=== PATIENT | female | born 1950 | race Caucasian/White ===

== ENCOUNTER 2022-06-22 09:33 | Outpatient (REF) | payer MEDICARE, OTHER, SELFPAY ==
[2022-06-22 10:52] LABS: MANUAL DIFF FLAG NO
[2022-06-22 11:16] LABS: Basophils Absolute Auto 0.1 X10*3/uL (0.0-0.2); Basophils Percent Auto 1.8 % (0-2); Eosinophils Absolute Auto 0.1 X10*3/uL (0.0-0.4); Eosinophils Percent Auto 1.5 % (0-4); Hematocrit 42.3 % (37.0-47.0); Hemoglobin 14.2 g/dl (12.0-16.0); Imm Gran Abs Auto 0.01 X10*3/uL (0.00-0.03); Imm Gran Pct Auto 0.2 % (0.0-0.4); Lymphocytes Absolute Auto 2.1 X10*3/uL (1.2-4.9); Mean Corpuscular HGB Conc 33.6 g/dl (31.0-35.0); Mean Corpuscular Hemoglobin 30.1 pg (27.0-33.0); Mean Corpuscular Volume 89.8 fL (80.0-98.0); Mean Platelet Volume 11.1 fL (9.4-12.3); Monocytes Absolute Auto 0.7 X10*3/uL (0.1-1.2); Monocytes Percent Auto 10.6 % (2-11); Neutrophils Absolute Auto 3.5 x10*3/uL (2.0-8.3); Neutrophils Percent Auto 53.9 % (45-73); Platelet Count 320 X10*3/uL (160-400); Red Blood Count 4.71 X10*6/uL (4.20-5.50); Red Cell Distribution Width 14.6 % (11.0-16.0); White Blood Count 6.5 X10*3/uL (4.8-10.8)
[2022-06-22 11:34] LABS: Alanine Aminotransferase 8 U/L (0-31); Albumin Level 4.2 g/dL (3.5-5.0); Alkaline Phosphatase 54 U/L (39-117); Anion Gap 17 (12-20); Aspartate Amino Transferase 15 U/L (5-31); Bilirubin Total 0.5 mg/dL (0.0-1.0); Blood Urea Nitrogen 16 mg/dL (9-16); Calcium 9.5 mg/dL (8.4-10.2); Carbon Dioxide 24 mmol/L (22-29); Chloride 101 mmol/L (96-108); Cholesterol 266 mg/dL; Estimated Glomerular Filt Rate > 60; Glucose Random 112 mg/dL (60-115); HDL Cholesterol 89 mg/dL; LDL Cholesterol Calculated 166 mg/dl; Potassium 4.8 mmol/L (3.3-5.1); Sodium 137 mmol/L (135-145); Total Protein 6.7 g/dL (6.5-8.0); Triglycerides 55 mg/dL
[2022-06-22 12:03] LABS: Folate 17.4 ng/mL (> or = 4.0); Free T4 (Free Thyroxine) 0.89 ng/dL (0.71-1.85); Thyroid Stimulating Hormone 1.33 uIU/mL (0.32-4.0); Vitamin B12 375 pg/mL (200-900); Vitamin D 25-OH Total 42.2 ng/mL (>30)
== END 2022-06-22 09:34 | disposition home or self-care (01) ==
LOC: HO.10HDL 09:33
PROVIDERS: Visit Provider Internal Medicine
DX: E78.00 Pure hypercholesterolemia, unspecified (principal); M85.80 Other specified disorders of bone density and structure, unspecified site; E55.9 Vitamin D deficiency, unspecified
CPT/HCPCS: 36415; 80053; 80061; 82306; 82607; 82746; 84439; 84443; 85025

== ENCOUNTER 2022-07-07 10:20 | Outpatient (REF) | payer MEDICARE, OTHER, SELFPAY ==
--- NOTE | ~2022-07-07 | MM_ITS ---
EXAMINATION: BONE DENSITOMETRY CLINICAL INDICATION: Age-related osteoporosis without current pathological fracture. COMPARISON: Baseline BD dated 02/27/2015. TECHNIQUE: Using a [employer] DXA System (software version: 13.1) manufactured by [employer], dual-energy x-ray absorptiometry was performed of the lumbar spine and left hip. The images are of good technical quality. Summary results are attached. FINDINGS: AP SPINE L1-L4: Current: BMD 1.089 g/cm2, Z-score 0.9, T-score -0.8, normal, 1.4% decrease from baseline (<5% change is not significant). Baseline: BMD 1.104 g/cm2. LEFT FEMUR, NECK: Current: BMD 0.732 g/cm2, Z-score -0.4, T-score -2.2, osteopenia. Baseline: BMD 0.937 g/cm2. LEFT FEMUR, TOTAL: Current: BMD 0.785 g/cm2, Z-score -0.2, T-score -1.8, osteopenia, 21.2% decrease from baseline (<5% change is not significant). Baseline: BMD 0.996 g/cm2. IDENTIFIED RISK FACTORS: Menopause. HISTORY OF FRACTURE: None listed. MEDICATIONS: Multivitamin and vitamin D. MM/XR DEXA axial skeleton IMPRESSION: 1. DIAGNOSIS: Osteopenia based on the lowest T-score value of -2.2 in the femoral neck applying World Health Organization criteria. 2. 10-YEAR FRACTURE RISK PREDICTION, FRAX: Major osteoporotic fracture (clinical spine, forearm, hip or shoulder) 13.9%. Hip fracture 3.4%. 3. Treatment Recommendations: NOF guidelines recommend consideration for treatment in postmenopausal women and men age 50 and older presenting with the following: -A hip or vertebral (clinical or morphometric) fracture. -T-score less than or equal to -2.5 at the femoral neck or spine after appropriate evaluation to exclude secondary causes. -Low bone mass at the hip or spine and a 10-year fracture probability by FRAX of greater than or equal to 3% for hip fracture or greater than or equal to 20% for major osteoporotic fracture based on the [place] adapted WHO algorithm. 4. Other Recommendations: All treatment decisions require clinical judgment and consideration of individual patient factors, including patient preferences, comorbidities, previous drug use, risk factors not captured in the FRAX model (e.g. frailty, falls, vitamin D deficiency, increased bone turnover, interval significant decline in bone density) and possible under or overestimation of fracture risk by FRAX. Additional medical evaluation for secondary cause of low bone mineral density may be appropriate. FUTURE SCAN RECOMMENDATION: People with diagnosed cases of osteoporosis or at high risk for fracture should have regular bone mineral density tests. For patients eligible for Medicare, routine testing is allowed once every 2 years. The testing frequency can be increased to one year for patients who have rapidly progressing disease, those who are receiving or discontinuing medical therapy to restore bone mass, or have additional risk factors.
== END 2022-07-07 10:21 | disposition home or self-care (01) ==
LOC: HO.MAMMO 10:20
PROVIDERS: PCP Internal Medicine; Visit Provider Internal Medicine
DX: Z13.820 Encounter for screening for osteoporosis (principal); M81.0 Age-related osteoporosis without current pathological fracture; M85.80 Other specified disorders of bone density and structure, unspecified site; Z78.0 Asymptomatic menopausal state
CPT/HCPCS: 77080

== ENCOUNTER 2023-01-18 10:06 | Day surgery (SDC) | payer MEDICARE, OTHER, SELFPAY ==
[2023-01-18 06:24] VITALS: BMI 23.8
--- NOTE | 2023-01-18 09:21 | HO.ANESPROP2 ---
HPI - Anesthesia Eval Consult details Narrative: screening colon PMFSH Active Problems Active Problems: All Active Problems (Updated 07/13/22 @ 14:27 by Thomas Tracey MD) Positive colorectal cancer screening using Cologuard test (Acute) Impaired fasting glucose (Acute) Colon cancer screening (Acute) Breast cancer screening by mammogram (Acute) Annual physical exam (Acute) Osteopenia (Acute) Annual physical exam (Acute) Hypercholesterolemia (Acute) Hypertension (Acute) Past Medical History Medical History Nasal fracture Vitamin B12 deficiency Vitamin D deficiency Hypercholesterolemia Hypertension Family History Family History Mother Dementia Father Suicide Brother No problems noted. Sister No problems noted. Son No problems noted. Family history of problems with anesthesia: No Surgical History History of Problems with Anesthesia: No Social History Social History Housing: House Alcohol intake: current Alcohol intake frequency: does not drink Patient Tobacco Use Status: Former Tobacco user Years Smoked: stopped 2000 e-Cigarette/Vaping Use: Never Used Second Hand Smoke Exposure: No Are you DNR?: No Advance Directives: No Advance Directives Information Provided: Yes Nutrition Risks: No Nutritional Risk Current occupational status: retired Cognitive needs: No Hearing needs: No Vision needs: No Meds Allergies Allergy/AdvReac Type Severity Reaction Status Date / Time No Known Allergies Allergy Verified 06/24/22 15:04 Home Medications Medication Instructions Recorded Confirmed Last Taken Type multivitamin (One-A-Day Essential 1 tab PO DAILY 09/18/20 06/24/22 Unknown History tablet) Exam Exam Date and Time: January 18, 2023 0921 Height,Weight and Vital Signs: Height 5 ft 5 in Weight 64.864 kg Airway Mallampati Class: II TM Dist: >3cm Heart: rrr Lungs: cta Assessment and Plan Assessment Anesthesia Assessment: Anesthesia Plan Discussed Final Anesthetic Review Family History of Problems with Anesthesia: No History of Problems with Anesthesia: No NPO: Yes ASA Class: II Final Preanesthetic Review: No Changes in Pt Med Stat, Meds/Allgs Chart Reviewed, Consent Obtained/Reviewed and Anes Risks/Benef Reviewed Patient Risk: Low Procedure Risk: Low Anesthetic Plan Anesthetic Plan: MAC: Disposition: Standard PACU
[2023-01-18 10:39] VITALS: BP 170/93; PULSE 78; RESP 17; TEMP 36.3; O2SAT 98
[2023-01-18] MEDS: Lactated Ringers 1,000 ML 50 ML IVCONT (11:11)
[2023-01-18 12:50] VITALS: BP 122/77; PULSE 62; RESP 16; TEMP 36.7; O2SAT 98
--- NOTE | 2023-01-18 12:54 | PM.OP ---
Brief Operative Note Date of Service: 01/18/23 Pre-op diagnosis: + Cologuard Post-op diagnosis: other (Scarring near ICV s/p biopsy, Diverticulosis) Procedure: Colonoscopy to the cecum with biopsy Surgeon: Aram Gonzalez Anesthesia: MAC Was an Label Printing Machinist used for this Procedure?: No Estimated blood loss (mL): 2.0 Pathology: other (A. Proximal ascending colon) Condition: stable Disposition: PACU
--- NOTE | 2023-01-18 13:09 | OP_ITS ---
DATE OF SERVICE: 01/18/2023 SURGEON: Aram Gonzalez MD INDICATIONS: The patient presents for evaluation of a positive Cologuard test. Full consent obtained from her for this, including risks of bleeding and perforation. PREOPERATIVE DIAGNOSIS: Positive Cologuard test. POSTOPERATIVE DIAGNOSIS: PROCEDURE PERFORMED: Colonoscopy to cecum with biopsy. ESTIMATED BLOOD LOSS: COMPLICATIONS: ANESTHESIA: Monitored anesthesia care. ASSISTANTS: SPECIMENS: POSTOPERATIVE DIAGNOSES: Positive Cologuard test, diverticulosis, internal hemorrhoids, some scarring in area of proximal ascending colon near the ileocecal valve and status post biopsy. DESCRIPTION OF PROCEDURE: The patient was placed in the left lateral decubitus position. The digital rectal exam revealed no abnormalities. The Olympus video pediatric colonoscope was entered into the rectum and advanced to the cecum. Advancement past the sigmoid was somewhat difficult due to diverticulosis. Once in the cecum, I did identify normal-appearing cecal pouch with appendiceal orifice. The ileocecal valve appeared normal. The cecal pouch appeared normal. The scope was then slowly withdrawn assessing all mucosal surfaces carefully. Preparation was excellent. At the opening of the cecum from the ascending colon, there was some relative narrowing of the lumen, but there was no sign of any mass nor ulceration. However, in one portion of the mucosa, which I felt was on the ileocecal valve, there was some scarring and some minimal friability. Again, there was no sign of any mass. I did obtain multiple biopsies from that area. I did not visualize any sign of polyps, colitis, nor angiodysplasia. There were several diverticulae noted in the ascending colon. There was a moderate amount of diverticulosis in the sigmoid colon. There was a fair amount of mucus throughout the colon, but the underlying mucosa all appeared normal. In the rectum, scope was retroflexed visualizing some internal hemorrhoids, but no other pathology. The rectal mucosa appeared normal. The scope was straightened and withdrawn from the patient. She tolerated the procedure well and was returned to the recovery area in stable condition. IMPRESSION: 1. Some scarring in region of the proximal ascending colon, near the ileocecal valve, status post biopsy. 2. Diverticulosis. 3. Internal hemorrhoids. PLAN: The results of the biopsies will be checked. Assuming there are no significant abnormal findings on the biopsies, then I do not think she will need further screening colonoscopies. She will otherwise see me on a p.r.n. basis. This has been discussed with her . MD COLBY Franklin/KARRIE / [phone] MTDFrederick
[2023-01-18 13:14] VITALS: BP 120/66; PULSE 60; RESP 18; TEMP 36.1; O2SAT 98
== END 2023-01-18 13:46 | disposition home or self-care (01) ==
PROVIDERS: PCP Internal Medicine; Visit Provider Internal Medicine
PROC: 0DJD8ZZ Inspection of Lower Intestinal Tract, Via Natural or Artificial Opening Endoscopic (ICD-10-PCS; CPT 45378; principal; 2023-01-18 11:20)
DX: R19.5 Other fecal abnormalities (principal); K52.9 Noninfective gastroenteritis and colitis, unspecified; K57.30 Diverticulosis of large intestine without perforation or abscess without bleeding; K64.8 Other hemorrhoids; K63.89 Other specified diseases of intestine; I10 Essential (primary) hypertension; E78.00 Pure hypercholesterolemia, unspecified; E53.8 Deficiency of other specified B group vitamins; E55.9 Vitamin D deficiency, unspecified; Z79.899 Other long term (current) drug therapy
CPT/HCPCS: 45380; 88305; J2250

== ENCOUNTER 2023-04-08 13:38 | Emergency (ER) | payer MEDICARE, OTHER, SELFPAY ==
--- NOTE | ~2023-04-08 | CT_ITS ---
EXAMINATION: CT FACIAL BONES CLINICAL INFORMATION: Facial pain COMPARISON: None TECHNIQUE: Noncontrast CT facial bones Department standard protocol. DLP 202. This CT examination was performed using dose optimization techniques as appropriate, variously including the following: *Automated exposure control *Adjustment of mA and/or kV according to patient size (this includes techniques or standardized protocols for targeted exams where dose is matched to indication/reason for exam; i.e. extremities or head) *Use of iterative reconstruction technique FINDINGS : SKULL BASE: Included structures at skull base are normal. BONES: Subtle cortical irregularity in the nasal bone likely a small nondisplaced fracture. Skull base, orbital bones, , maxillary bones, mandibles, zygomatic arches, and included cervical vertebrae are normal. ORBITS: Globes are symmetric. Orbital structures are normal. SALIVARY GLANDS: Unremarkable SINUSES: Included sinuses at skull base are clear. CT/CT facial bones wo IV con IMPRESSION: Nondisplaced fracture of the nasal bone.
--- NOTE | ~2023-04-08 | XR_ITS ---
EXAMINATION: XR WRIST, RIGHT XR HAND, RIGHT CLINICAL INFORMATION: Post reduction COMPARISON: Earlier on same day TECHNIQUE: AP and lateral views of the right wrist and right hand FINDINGS: The intra-articular fracture about the distal right radius is improved in alignment from prior study with improvement in dorsal angulation of the distal fracture fragment. No dislocation is evident. There is associated soft tissue swelling seen. There is degenerative change with joint space narrowing seen involving the distal interphalangeal joints of the right hand as well as degenerative change of the first interphalangeal joint. There is some calcification of the triangular fibrocartilage adjacent to the ulnar styloid but I do not see a definite ulnar styloid fracture on these images. XR/XR hand wrist RT IMPRESSION: Improvement in alignment of distal right radial intra-articular fracture with near neutral angulation of the radiocarpal joint.
--- NOTE | ~2023-04-08 | CT_ITS ---
EXAMINATION: CT cervical spine without IV contrast. CLINICAL INDICATION: Fall, pain. COMPARISON: None. TECHNIQUE: 5 mm thin axial and reformatted 2 mm thin sagittal and coronal images of brain were obtained. Subsequently axial 3 mm thin and reformatted 2 mm thin sagittal and coronal images of cervical spine were obtained. Lastly axial 3 mm thin and reformatted 1.5 mm thin sagittal and coronal images of facial bones were obtained. DLP 1085. This CT examination was performed using dose optimization technique as appropriate, variously including the following: Automated exposure control Adjustment of MA and/or KV according to patient size(this includes techniques or standardized protocols for targeted exams where dose is matched to indication/reason for exam; extremities or head. Use of iterative reconstruction techniques. FINDINGS: Brain: There is no acute intra-axial, extra-axial bleed, masses or midline shift. There is no acute infarction evolution. There is no edema. Barillas to white matter differentiation is maintained. The lateral ventricles are symmetrical in size and configuration without enlargement. Bone windows reveal no calvarial abnormality. There is no scalp soft tissue abnormality. Bilateral paranasal sinuses and mastoid air cells are well-aerated. Cervical spine: There is mild reversal of cervical lordosis. Loss of C5-C6, C6-C7 and C7-T1 disc heights with mild ventral spondylosis. The craniovertebral junction and the C1-C2 alignment is normal. There is moderate right C2-C3 and C3-C4 facet joint arthropathy and hypertrophy. No aggressive lytic or sclerotic process seen. The prevertebral and paravertebral soft tissues are normal. The airway is widely patent. The lung apices are clear. Facial bones: There is normal aeration of bilateral paranasal sinuses and mastoid air cells. No mucoperiosteal thickening or air-fluid levels seen. The lamina papyracea and cribriform plate are normal. Paranasal bony aguirre are intact. There is mild deviation nasal septum to the right and a tiny bony spur. The turbinates are symmetrical and normal. Nasopharyngeal and nasal cavity airways widely patent. The bony orbits, optic globe and optic nerve are symmetrical and normal. The preseptal, post septal, and nasal and maxillofacial soft tissues are normal. There is a small nondisplaced right nasal bone fracture suspected.. Bilateral TM joints are symmetric and normal. No fracture seen involving the mandible. CT/CT cervical spine wo IV con IMPRESSION: No acute intracranial process seen. Reversal of cervical lordosis with degenerative disc changes in right facet joint arthropathy as described above. No visible acute fracture or dislocation seen. Small nondisplaced right nasal bone fracture suspected on axial image 37/21. Otherwise maxillofacial and mandible bones are unremarkable. No soft tissue swelling seen.
--- NOTE | ~2023-04-08 | XR_ITS ---
EXAMINATION: XR WRIST, RIGHT CLINICAL INFORMATION: Status post fall. Pain COMPARISON: None available. TECHNIQUE: PA, lateral, and oblique views of the right wrist. FINDINGS: There is transverse fracture through the right distal radius dorsal angulation and minimal displacement. Resultant dinner fork deformity. There is moderate soft tissue swelling. No additional fracture seen. Punctate calcification along the triangle fibrocartilage. XR/XR wrist RT min 3V IMPRESSION: Ovaries fracture distal radius with moderate soft tissue swelling.
--- NOTE | 2023-04-08 13:39 | ED.GENADULT ---
HPI - General Adult General Chief complaint: Fall Stated complaint: fall facial and r wrist inj Time Seen by Provider: 04/08/23 13:47 Source: patient and family Mode of arrival: ambulatory Limitations: no limitations History of Present Illness HPI narrative: Patient is a 73-year-old right hand dominant female with history of nasal fracture, HTN, hypercholesterolemia presenting to the emergency department with complaint of right wrist pain and facial pain after a trip and fall prior to arrival. Patient reports that she was outdoors on a walk with her when her shoe got caught on the edge of the sidewalk, causing her to trip and fall forward onto outstretched hands. She reports positive head strike, stating that she struck her face on the ground, denies loss of consciousness. Reports laceration to inside of lower lip, pain and swelling to nose, pain and swelling to right wrist. Denies numbness, tingling, or weakness to fingers. Denies any loose teeth or difficulty opening jaw. Denies headache or vision changes. Denies neck or back pain. complaint: facial and wrist pain Onset (ago): hour(s) Location: face and mouth Radiation: non-radiation Severity: severe Severity scale (1-10): 10 Quality: aching Pain Consistency: constant Relieving factors: rest Exacerbating factors: movement Associated symptoms: denies other symptoms Treatments prior to arrival: none Related Data Home Medications Medication Instructions Recorded Confirmed multivitamin (One-A-Day Essential 1 tab PO DAILY 09/18/20 06/24/22 tablet) Previous Rx's Medication Instructions Recorded atenolol 50 mg tablet 50 mg PO DAILY #90 tabs 02/01/23 lisinopril 10 mg tablet 10 mg PO DAILY #90 tabs 02/01/23 amoxicillin 875 mg-potassium 1 tab PO BID #14 tabs 04/08/23 clavulanate 125 mg tablet oxycodone 5 mg tablet 5 mg PO Q8H PRN pain #10 tabs 04/08/23 Allergies Allergy/AdvReac Type Severity Reaction Status Date / Time No Known Allergies Allergy Verified 06/24/22 15:04 Review of Systems Review of Systems: As per HPI. Yes all other systems are reviewed and are negative Constitutional: Constitutional: Reports as per HPI [facility] Past Medical History Medical History Nasal fracture Vitamin B12 deficiency Vitamin D deficiency Hypercholesterolemia Hypertension Family History Family History Mother Dementia Father Suicide Brother No problems noted. Sister No problems noted. Son No problems noted. Social History Social History Housing: House Alcohol intake: current Alcohol intake frequency: does not drink Patient Tobacco Use Status: Former Tobacco user Years Smoked: stopped 2000 e-Cigarette/Vaping Use: Never Used Second Hand Smoke Exposure: No Advance Directives: Yes Advance Directives Information Provided: No Advance Directives on File: No Current occupational status: retired Cognitive needs: No Hearing needs: No Vision needs: No Physical Exam ED Vital Signs: Vital Signs - 24 hr 04/08/23 13:40 04/08/23 14:30 Temperature 97.6 F 97.8 F Pulse Rate 102 H 92 Respiratory Rate 20 18 Blood Pressure 195/102 H 163/94 H Pulse Oximetry 96 94 Oxygen Delivery Method Room Air Room Air BMI result Body Mass Index 23.5 Vital signs have been reviewed and appear to be correct. Blood pressure elevated. Heart rate tachycardic initially, improved while in ED. Respiratory rate normal. Temperature normal. Oxygen saturation normal. Const General: cooperative, healthy appearing and no acute distress Orientation/consciousness: oriented to person, oriented to place, oriented to time and patient oriented x3 Limitations: no limitations HENMT Head: Yes No palpable skull fracture present, Yes normocephalic, No Taylor's sign and No periorbital ecchymosis Head images: 1. swelling, abrasions and ecchymosis to nasal bridge 2. ecchymosis to upper lip, 1cm Ears: external ears normal, TM's normal bilaterally and EAC's normal General nose exam: Normal septum present, Abnormal external nose present nasal abrasion, nasal tenderness and nasal swelling and Nasal discharge present bloody bilateral Face and sinus: Yes face symmetric Mouth: oropharynx normal, moist mucous membranes and lip abnormal lower laceration (stellate, with associated swelling) Teeth and gingiva: dentition normal Throat: Yes uvula midline and No uvular edema Eyes Pupils: Equal, round and reactive pupils present EOM: EOMs intact bilaterally Neck Neck: Yes normal visual inspection and Yes supple Chest Chest palpation & inspection: normal inspection of the chest and normal palpation of entire chest wall Resp Effort & Inspection: normal respiratory effort and able to speak in complete sentences Auscultation: clear to auscultation bilaterally Cardio Rate: regular rate Rhythm: regular rhythm Heart sounds: S1 normal heart sound present and S2 normal heart sound present GI Inspection: Yes normal to inspection Palpation (GI): Soft to palpation and nontender Auscultation: normoactive bowel sounds General: Yes no CVA tenderness Back/Spine/Pelvis Back: no CVA tenderness Cervical Spine: normal cervical lordosis, No Cervical spine tenderness and No step off deformity Thoracic/Lumbar Spine: thoracic and lumbar spine normal to inspection, No thoracic spinal tenderness and No lumbar spinal tenderness Pelvis: no pain with anterior-posterior compression and no pain with lateral compression Skin General skin exam: elasticity normal and turgor normal Neuro General: oriented to person, oriented to place, oriented to time, patient oriented x3, moves all extremities, no focal motor deficits and CN's II-XI intact bilaterally Cranial nerves: Yes Equal, round and reactive pupils present Cognition (Neuro): normal cognition Extrem General: Yes full ROM, Yes no pedal edema and Yes no calf tenderness Right upper extremity: wrist Details: tenderness Location: of the distal radius and of the dorsal wrist, abnormal ROM, deformity Details: dinner fork, normal vascular exam and radial pulse present Details: 2+ Psych Mental Status: mental status grossly normal Affect: normal affect Thought process: Normal thought process present Course Course Course Narrative: RME performed by Rima Macias PA-C. Patient is a 73 year old assigned female at presenting to the emergency department with right wrist and face pain after tripping and falling on the sidewalk. Imaging ordered. Patient placed back in the waiting room pending room availability and results. Medications Administered Discontinued Medications Generic Name Dose Route Start Last Admin Trade Name Freq PRN Reason Stop Dose Admin Bupivacaine HCl 5 ml 04/08/23 14:26 04/08/23 15:35 Bupivacaine 0.5 % 50 Ml Vial INFILTRATI 04/08/23 14:27 5 ml ONCE ONE Administration Bupivacaine HCl 5 ml 04/08/23 14:45 04/08/23 15:35 Bupivacaine Mpf 0.5 % 30 Ml Vial INFILTRATI 04/08/23 14:46 5 ml ONCE ONE Administration Diphtheria/Tetanus/Acell Pertussis 0.5 ml 04/08/23 15:37 04/08/23 15:49 Diphth,Pertus(Acell),Tet Adult 0.5 Ml Syringe IM 04/08/23 15:38 0.5 ml .ONCE ONE Administration Lidocaine HCl 5 ml 04/08/23 14:26 04/08/23 15:35 Lidocaine Hcl 1 % Mpf 5 Ml Vial SUBCUT 04/08/23 14:27 5 ml ONCE ONE Administration Oxycodone HCl 5 mg 04/08/23 14:31 04/08/23 14:37 Oxycodone Hcl Immed Release 5 Mg Tablet PO 04/08/23 14:32 5 mg ONCE ONE Administration Procedures Orthopedic Fracture Reduction Fracture #1: Time Out Performed: Yes Side: right Fracture Reduction Location: radius Analgesia: hematoma block Technique: direct manipulation and traction/counter-traction Post Reduction X-rays Demonstrate: acceptable reduction Post-reduction neuro exam: intact Post-reduction vascular exam: intact Splint Applied: Yes Patient Tolerated Procedure: well Orthopedic Splinting/Casting Injury #1: Side: right Upper Extremity Injury Location: wrist Upper Extremity Immobilizer: sling/shoulder immobilizer and sugar tong splint Medical Decision Making Medical Decision Making MDM Narrative: Patient is a 73-year-old right hand dominant female with history of nasal fracture, HTN, hypercholesterolemia presenting to the emergency department with complaint of right wrist pain and facial pain after a trip and fall prior to arrival. On exam patient is awake, A+Ox3, VS WNL, afebrile, normal neurological exam without focal deficits, physical exam findings as above. Given reported symptoms and physical exam findings, initial differential includes wrist fracture, nasal fracture, ICH, skull fracture, cervical vertebral fracture. X-ray wrist notable for distal radius fracture. CT head and neck unremarkable, nondisplaced nasal fracture noted on CT facial bones. My interpretation is in agreement with the radiologist's interpretation. Case discussed with Tereso from ortho who recommends reduction of wrist. Wrist reduced with EHSAN Abarca as per procedure note, patient tolerated well. Alignment improved on repeat imaging. Splint applied as per procedure note with +CMS distally prior to and after application of splint. Will refer to ortho as well as ENT. Patient advised not to blow her nose due to fracture. Will treat with Augmentin due to nasal abrasions. Advised patient to alternate Tylenol and ibuprofen, will prescribe oxycodone for severe pain. Also advised patient to keep arm elevated while at rest and apply ice intermittently. Return precautions discussed at length with patient and at bedside. Patient verbalized understanding of and agreement with plan. Differential Diagnosis Differential Diagnoses: The differential diagnosis associated with the presentation includes As per MDM Consult Healthcare Provider Management of the patient was discussed with: [employer] Factory Worker (renetta Rider) Independent Interpretation I performed an independent interpretation of an: CT Scan Interpretation: Distal radius fracture on xray Nondisplaced nasal fracture on CT No ICH, skull or cervical vertebral fractures Radiology Impression Radiologist Impression: CT/CT head/brain wo IV con IMPRESSION: No acute intracranial process seen. Reversal of cervical lordosis with degenerative disc changes in right facet joint arthropathy as described above. No visible acute fracture or dislocation seen. Small nondisplaced right nasal bone fracture suspected on axial image 37/21. Otherwise maxillofacial and mandible bones are unremarkable. No soft tissue swelling seen. XR/XR wrist RT min 3V IMPRESSION: Ovaries fracture distal radius with moderate soft tissue swelling. Independent Historian Clinical information obtained from an independent historian. History obtained from or confirmed by: Spouse External Record Review External record reviewed: Inpatient record, Office record and Outpatient record Prescription Management I considered prescription management with: Pain Medication and Antibiotic Discharge Plan Discharge Clinical Impression: Closed fracture of right distal radius, Fracture of nasal bone, Fall Patient Disposition: Home, Self-Care Instructions: Amoxicillin/Clavulanate Potassium (By mouth), Nasal Fracture (ED), Wrist Fracture in Adults (ED), R.I.C.E. Treatment (ED) Additional Instructions: You were evaluated in the emergency department today for injuries sustained after a fall. Your x-ray revealed a distal radius (wrist) fracture. Your CT also showed a nasal fracture. Your wrist was reduced in the emergency department today and a splint was applied. Please keep this splint in place until you follow-up with orthopedics. It is important that you do not get the splint wet. Please use the sling as needed for comfort. It is important that with your nasal fracture, you do not blow your nose. You are being referred to ENT for further evaluation and management of your nasal fracture. You are also being referred to Orthopedics for further evaluation and management of your wrist fracture. Please call both offices to schedule appointments. You are being prescribed Augmentin which is an antibiotic to prevent infection associated with your injuries. We recommend you take 600 mg ibuprofen every 6 hours or Tylenol 650 mg every 6 hours as needed for pain. If needed, you can alternate these medications so that you take 1 medication every 3 hours. For instance, at noon take ibuprofen, then at 3:00 p.m. take Tylenol, then at 6:00 p.m. take ibuprofen. You are being prescribed oxycodone for severe pain. You should not drink alcohol while taking this medication and you should not take this medication while home alone. You can also apply ice to your nose as well as over the splint for 10-15 minutes at a time. Do not apply ice directly to skin. Please schedule an appointment with for follow-up with your primary care provider as soon as possible as well. Return to the emergency department if you experience worsening or uncontrolled pain, numbness, tingling, change of color in your fingers, uncontrolled nose bleeds, vision changes, recurrent vomiting, difficulty with normal activities, abnormal behavior, difficulty walking, numbness, weakness, or any other concerning symptoms. Prescriptions: New amoxicillin-pot clavulanate 875-125 mg tablet 1 tab PO BID Qty: 14 0RF oxycodone 5 mg tablet 5 mg PO Q8H PRN (Reason: pain) Qty: 10 0RF Rx Instructions: Partial Fill upon patient request. No Action atenolol 50 mg tablet 50 mg PO DAILY Qty: 90 2RF lisinopril 10 mg tablet 10 mg PO DAILY Qty: 90 2RF multivitamin [One-A-Day Essential] Tablet 1 tab PO DAILY Referrals: [facility] [Provider Group] Jayesh Wasserman [Physician] -
[2023-04-08 13:40] VITALS: BP 195/102; PULSE 102; RESP 20; TEMP 36.4; O2SAT 96; BMI 23.5
[2023-04-08 14:30] VITALS: BP 163/94; PULSE 92; RESP 18; TEMP 36.6; O2SAT 94
[2023-04-08] MEDS: oxyCODONE HCl Immed Release 5 MG TABLET PO (14:37)
[2023-04-08] MEDS: Lidocaine HCl 1 % MPF 5 ML VIAL SUBCUT (15:35)
[2023-04-08] MEDS: Diphth,Pertus(ACell),Tet Adult 0.5 ML SYRINGE IM (15:49)
[2023-04-08 16:13] VITALS: BP 164/82; PULSE 90; RESP 18; TEMP 36.6; O2SAT 98
== END 2023-04-08 16:21 | disposition home or self-care (01) ==
PROVIDERS: Emergency Provider Student in an Organized Health Care Education/Training Program; PCP Internal Medicine
DX: S52.501A Unspecified fracture of the lower end of right radius, initial encounter for closed fracture (principal); S02.2XXA Fracture of nasal bones, initial encounter for closed fracture; I10 Essential (primary) hypertension; W01.0XXA Fall on same level from slipping, tripping and stumbling without subsequent striking against object, initial encounter; Y93.01 Activity, walking, marching and hiking; Y92.480 Sidewalk as the place of occurrence of the external cause; Y99.9 Unspecified external cause status; Z23 Encounter for immunization
CPT/HCPCS: 25605; 70450; 70486; 72125; 73110; 73130; 90471; 90715; 99284; J0665

== ENCOUNTER 2023-04-14 14:06 | Outpatient (AMB) | payer MEDICARE, OTHER, SELFPAY ==
--- NOTE | 2023-04-14 14:14 | MHC.OFFVIS ---
Intake Intake Visit Reasons: fc-fracture of right distal radius Intake Note: Josie is a 73 year old right hand dominant female who presents today for a fracture care appt. On Monday04/08/23 patient reports that she fell with out stretched arm on a sidewalk. Overall she is doing well, she has some increased pain at night but is able to move all her fingers with out any pain. Denies numbness and tingling. Allergies No Known Allergies Allergy (Verified 06/24/22 15:04) Medication List - Last Reconciled 04/14/23 by Tereso Farah PA-C amoxicillin-pot clavulanate 875-125 mg 1 tab PO BID atenolol 50 mg PO DAILY lisinopril 10 mg PO DAILY multivitamin (One-A-Day Essential tablet) 1 tab PO DAILY oxycodone 5 mg PO Q8H PRN HPI fc-fracture of right distal radius HPI Details 73-year-old right hand dominant female who presents to the office today for evaluation of right wrist injury s/p fall on outstretched arm on a sidewalk, 04/08/23. She states she has pain in her right wrist which is aggravated at night. She is able to move all her fingers without any pain. She denies any numbness or tingling. She is physically active and performs daily household activities. [facility], [facility] Medical History Nasal fracture Vitamin B12 deficiency Vitamin D deficiency Hypercholesterolemia Hypertension Family History Mother Dementia Father Suicide Brother No problems noted. Sister No problems noted. Son No problems noted. Social History Housing: House Alcohol intake: never Patient Tobacco Use Status: Former Tobacco user Years Smoked: stopped 2000 e-Cigarette/Vaping Use: Never Used Second Hand Smoke Exposure: No Current occupational status: retired Cognitive needs: No Hearing needs: No Vision needs: No Review of Systems Const All systems reviewed & are unremarkable except as noted in HPI and below Physical Exam Const General: cooperative and no acute distress Orientation/consciousness: patient oriented x3 Resp Effort & Inspection: normal respiratory effort and able to speak in complete sentences Cardio Peripheral pulses: Peripheral pulses 2+ throughout Neuro General: patient oriented x3 Extrem Other: Right wrist: Skin intact. There is significant swelling and bruising over the distal radius with tenderness over the fracture site. There is no pain over the elbow, negative forearm squeeze test. She has full range of motion of the elbow. She can fully extend all digits and make a closed fist. Pulses are present and she is neurovascularly intact. Office Procedures Casting/Splints 08164-[id number] Splint Application Procedure code (CPT) selection complete Fracture Care Fracture Billing Code: Fracture Billing Code Results Reviewed Results Reviewed: xrays of the right wrist obtained on 04/09/23 show intraarticular distal radius fracture Assessment & Plan Assessment & Plan (1) Closed fracture of right distal radius: Code(s): S52.501A - Unspecified fracture of the lower end of right radius, initial encounter for closed fracture Qualifiers: Encounter type: initial encounter Fracture morphology: other fracture Qualified Code(s): S52.591A - Other fractures of lower end of right radius, initial encounter for closed fracture Plan I discussed the extent of the injury to the patient and options available. Given the extent of the fracture pattern and high risk of further displacement, it is recommended that we surgically fix this to help with stability and restoring anatomy. I explained to the patient the procedure in detail along with the risks, benefits and alternatives. Risks including but not limited to infection, wound breakdown, stiffness, ongoing pain, nonunion or malunion, and possible complications with hardware. She does understand all this and would like to proceed with open reduction internal fixation of the right distal radius with Dr. Zamora. She will be booked accordingly. Patient Instructions: Scribed for Tereso Farah PA-C, by Pete Marroquin medical scientist, on 04/14/2023 at 2:30 PM EST. I, Tereso Farah PA-C, have personally reviewed and agree with the information entered by the scribe. Coding Level of Care Code New Pt Level 4 (98299) Diagnoses Other closed fracture of distal end of right radius, initial encounter S52.591A Encounter type: initial encounter Fracture morphology: other fracture CPT Codes Splint - CPT: 80737-[id number] Splint Application ([id number]) Fracture Care - Fracture Billing Code: Fracture Billing Code ([id number])
== END 2023-04-14 15:03 | disposition home or self-care (01) ==
PROVIDERS: PCP Internal Medicine; Visit Provider Physician Assistant
DX: S52.591A Other fractures of lower end of right radius, initial encounter for closed fracture (principal); W19.XXXA Unspecified fall, initial encounter
CPT/HCPCS: 25600; 99204

== ENCOUNTER → 2023-04-14 14:06 | Outpatient (BNVA) | payer MEDICARE, OTHER, SELFPAY | PROVIDERS: PCP Internal Medicine; Visit Provider Physician Assistant | DX: S52.591A Other fractures of lower end of right radius, initial encounter for closed fracture (principal) | CPT/HCPCS: 25600; 99202 ==

== ENCOUNTER 2023-04-20 10:47 | Day surgery (SDC) | payer MEDICARE, OTHER, SELFPAY ==
[2023-04-20] VITALS (7 sets, daily range): BP systolic 150–169; BP diastolic 62–83; PULSE 62–75; RESP 16–18; TEMP 36.1–36.7; O2SAT 93–99; BMI 22.8
--- NOTE | ~2023-04-20 | FL_ITS ---
EXAMINATION: XR FLUOROSCOPY WITH IMAGES CLINICAL INFORMATION: ORIF distal radius, right. COMPARISON: Previous x-ray 04/08/2023 TECHNIQUE: Fluoroscopy Supervised By: Dr. Kaitlynn Zamora. Fluoroscopy Time: 24.72 seconds. Cumulative Dose: 0.6753 mGy. DAP: 0.0408 Gycm2. Images: 5. FINDINGS: Images demonstrate plate and screw fixation of right distal radius with improved alignment FL/FL guidance in OR IMPRESSION: Fluoroscopic guidance for ORIF of right distal radius fracture.
--- NOTE | 2023-04-20 11:48 | HO.ANESPROP2 ---
HPI - Anesthesia Eval Consult details Narrative: closed fracture right distal radius for repair Anesthesia Pre-Procedure Meds If Yes to any meds - educate patient: Pt education - possibility of cancelled proc at provider's discretion PMFSH Active Problems Active Problems: All Active Problems (Updated 04/17/23 @ 22:34 by Tereso Farah PA-C) Closed fracture of right distal radius (Acute) Positive colorectal cancer screening using Cologuard test (Acute) Impaired fasting glucose (Acute) Colon cancer screening (Acute) Breast cancer screening by mammogram (Acute) Annual physical exam (Acute) Osteopenia (Acute) Annual physical exam (Acute) Hypercholesterolemia (Acute) Hypertension (Acute) Past Medical History Medical History Nasal fracture Vitamin B12 deficiency Vitamin D deficiency Hypercholesterolemia Hypertension Family History Family History Mother Dementia Father Suicide Brother No problems noted. Sister No problems noted. Son No problems noted. Family history of problems with anesthesia: No Surgical History History of Problems with Anesthesia: No Social History Social History Housing: House Alcohol intake: never Patient Tobacco Use Status: Former Tobacco user Years Smoked: stopped 2000 e-Cigarette/Vaping Use: Never Used Second Hand Smoke Exposure: No Are you DNR?: No Advance Directives: No Advance Directives Information Provided: Yes Nutrition Risks: No Nutritional Risk Current occupational status: retired Cognitive needs: No Hearing needs: No Vision needs: No Meds Allergies Allergy/AdvReac Type Severity Reaction Status Date / Time No Known Allergies Allergy Verified 04/20/23 11:24 Home Medications Medication Instructions Recorded Confirmed Last Taken Type multivitamin (One-A-Day Essential 1 tab PO DAILY 09/18/20 04/20/23 Unknown History tablet) Exam Airway Mallampati Class: II TM Dist: >3cm Neck ROM: Full Heart: rrr Lungs: cta Assessment and Plan Assessment Anesthesia Assessment: Anesthesia Plan Discussed and Chart Reviewed Final Anesthetic Review Family History of Problems with Anesthesia: No History of Problems with Anesthesia: No NPO: Yes ASA Class: II Final Preanesthetic Review: No Changes in Pt Med Stat, Meds/Allgs Chart Reviewed, Consent Obtained/Reviewed and Anes Risks/Benef Reviewed Patient Risk: Low Procedure Risk: Low Anesthetic Plan Anesthetic Plan: GA and Regional Block Disposition: Standard PACU
--- NOTE | 2023-04-20 11:54 | PC.NURSE ---
patient aware that new arrival time is 1300. Did not check voicemails to receive our message.
--- NOTE | 2023-04-20 13:49 | MHC.SHP ---
Pre-Procedural Eval Section A Date of Service: 04/20/23 The patient is an INPATIENT: No Changes since office visit: No Cold of Flu in the past 2 weeks, No New Medical Problems, No Changes in Medication and No Patient answered all questions The History & Physical has been completed within 30 days and I have reviewed it.: No Section B Chief Complaint: Unspecified fracture of the lower end of right Allergies: Allergies Allergy/AdvReac Type Severity Reaction Status Date / Time No Known Allergies Allergy Verified 04/20/23 11:24 Plan I have reviewed the history and physical and performed a pertinent physical examination on my patient. No changes have occurred unless specified. Time Spent With Patient Time: Total time managing care of this patient today ____ minutes.
--- NOTE | 2023-04-20 13:50 | W.PM.OPN ---
Operative Note Operative Note Date of Service: 04/20/23 Narrative: Operative Note Narrative: Preop diagnosis: 1. Right Distal radius fracture, comminuted intra-articular Postop diagnosis: Same Procedure: 1. Right Distal radius fracture open reduction internal fixation, two-part intra-articular Surgeon: Kaitlynn Zamora MD Anesthesia: General anesthesia plus regional block Findings: very distal intra-articular distal radius fracture about 2 weeks post injury. Implants: A 3 hole Accu Med volar locking plate, with 3x 2.3 mm locking pegs/screws, and 3 3.5 mm cortical screws Tourniquet time: Forty minutes EBL: 5.0 ml Specimen: None Drains: None Complications: None Disposition: Brought to the recovery room in stable condition Plan: Follow-up in 10-14 days for wound check, suture removal and postop radiographs The patient will be placed in either a short-arm cast or a volar wrist splint. Encouraged no lifting of anything heavier than a cell phone. Please encourage active and passive range of motion of the digits. Follow-up at 4-5 weeks postop for repeat radiographs. Indications: The patient is a 73 year old woman with a right distal radius fracture with displacement. The risks and benefits of operative treatment, including but not limited to risk of damage to blood vessels, nerves, tendons, infection, recurrence, persistent pain or numbness, incomplete resolution of preoperative symptoms, or need for further surgery were discussed with the patient and they wished to proceed with surgery. Procedure: Once consent was obtained patient was brought back to the operating suite and placed in the operating table in a supine position. A regional block was performed by the anesthesia team. Perioperative antibiotics and anesthesia was administered by the anesthesia team. A tourniquet was applied to the proximal aspect of the right upper extremity and the limb was prepped and draped in a standard surgical fashion. The limb was elevated exsanguinated with Esmarch bandage and the tourniquet inflated to 250 mm of mercury for a total tourniquet time of 40 minutes. The FluoroScan was used throughout the case to assess our reduction, and facilitate implant placement. A gentle closed reduction was 1st performed on the patient's right distal radius fracture. Was assessed radiographically before proceeding with the reduction internal fixation. I then made an 8 cm longitudinal incision over the distal aspect of the flexor carpi radialis tendon. The incision was made through the skin to the subcutaneous tissue using a 15. Blade. Then carefully dissected down to flexor carpi radialis tendon she tenotomy scissors. The FCR tendon sheath was then incised longitudinally using tenotomy scissors under direct visualization. The FCR tendon was then retracted ulnarly. I then made a longitudinal incision in the volar forearm fascia through the floor of FCR tendon sheath using tenotomy scissors under direct visualization. I identified the interval between the radial artery and the flexor tendons. This interval was developed further with my index finger, releasing some of the muscular fibers of the flexor pollicis longus. A dull weatlander retractor was then placed. I then created an ulnarly based flap of the pronator quadratus by releasing the radial and distal edges using a 15. Blade. A Juárez elevator was used to elevate the pronator quadratus from the volar surface of the distal radius. This then revealed to us our distal radius fracture. the fracture was seen to be very distal. There was intra-articular extension involving the radial styloid, and concern about intra-articular extension in the coronal plane. An open reduction was then performed on our distal radius fracture. I then placed a short narrow 3 hole Accu Med volar locking plate on the volar surface of the distal radius. I placed a single K-wire through the distal aspect of the plate and into the distal radius. This was assessed using fluoroscopic images. I was satisfied with the placement of our plate. I then placed 4x 2.3 mm locking screws/pegs in the distal aspect of the plate and distal radius by 1st drilling bicortically with a 1.8 mm drill bit, measuring with a depth gauge, and placing the appropriate length locking screws/pegs. The placement of our plate and screws was then assessed again using fluoroscopic images. The once satisfied with the placement of the volar locking plate and screws on the distal aspect of the distal radius, the plate was then reduced to the shaft of the radius. I then placed 3 3.5 mm cortical screws to the proximal aspect of the plate and into the shaft of the radius. This was done by 1st drilling bicortically with a 2.8 mm drill bit, measuring with a depth gauge, and placing the appropriate length screw. On looking at our post reduction and fixation radiographs, I was concerned that the radial styloid peg was very close to and might involve the articular surface. It was therefore removed. Final radiographs were then obtained. The DRUJ was assessed and found to be stable on exam. I was satisfied with our reduction and placement of all implants. At this point the wound was irrigated with normal saline. The pronator quadratus was reduced back over the volar locking plate using some 3-0 Vicryl suture material. The tourniquet was then deflated and hemostasis was obtained with a brief period of local pressure and bipolar monopolar electrocautery. The subcutaneous layer was then reapproximated using some 4-0 Vicryl suture, and the skin edges were reapproximated using some 5 0 Prolene suture. The wound was then infiltrated with some 0.5% Marcaine for postop pain control. A sterile dressing and a short dorsal splint allowing for active flexion and extension of the digits was applied. The patient appears to have tolerated the procedure well and with no complications. All digits were well vascularized conclusion of the case.
== END 2023-04-20 17:16 | disposition home or self-care (01) ==
PROVIDERS: PCP Internal Medicine; Visit Provider Orthopaedic Surgery
PROC: (CPT 25608; principal; 2023-04-20 12:20)
DX: S52.571A Other intraarticular fracture of lower end of right radius, initial encounter for closed fracture (principal); W01.0XXA Fall on same level from slipping, tripping and stumbling without subsequent striking against object, initial encounter; Y93.01 Activity, walking, marching and hiking; Y92.480 Sidewalk as the place of occurrence of the external cause; Y99.8 Other external cause status; I10 Essential (primary) hypertension; E78.00 Pure hypercholesterolemia, unspecified; E55.9 Vitamin D deficiency, unspecified; E53.8 Deficiency of other specified B group vitamins; Z79.899 Other long term (current) drug therapy; Z87.891 Personal history of nicotine dependence
CPT/HCPCS: 25608; C1713; C1769; J0665; J0690; J1100; J2250; J2405; J2704; J2795

== ENCOUNTER → 2023-04-20 10:47 | Outpatient (BNV) | payer MEDICARE, OTHER, SELFPAY | PROVIDERS: PCP Internal Medicine; Visit Provider Orthopaedic Surgery | DX: S52.571A Other intraarticular fracture of lower end of right radius, initial encounter for closed fracture (principal) | CPT/HCPCS: 25608 ==

== ENCOUNTER 2023-05-03 10:44 | Outpatient (REF) | payer MEDICARE, OTHER, SELFPAY ==
--- NOTE | ~2023-05-03 | XR_ITS ---
EXAMINATION: XR WRIST, RIGHT CLINICAL INFORMATION: Pain in right wrist COMPARISON: 04/08/2023 TECHNIQUE: PA, lateral, and oblique views of the right wrist. FINDINGS: There is a comminuted intra-articular fracture of the distal radius transfixed by a ventral plate and multiple screws. The fracture cleft is widened compared to 04/08/2023. There is no evidence of hardware complication. The most lateral fragment with intra-articular extension is not included within the fixation device. Small densities adjacent to the ulnar styloid are consistent with fracture versus related to calcification of the triangular fibrocartilage complex however the ulnar styloid is not identified. There is marked narrowing of the radiocarpal joint. XR/XR wrist RT min 3V IMPRESSION: Comminuted intra-articular fracture of the distal radius without evidence of hardware complication. The fracture cleft is widened compared to 04/08/2023.
== END 2023-05-03 10:45 | disposition home or self-care (01) ==
LOC: HO.HOSX 10:44
PROVIDERS: Visit Provider Orthopaedic Surgery
DX: S52.591D Other fractures of lower end of right radius, subsequent encounter for closed fracture with routine healing (principal)
CPT/HCPCS: 73110; 99212

== ENCOUNTER 2023-05-03 11:11 | Outpatient (AMB) | payer MEDICARE, OTHER, SELFPAY ==
--- NOTE | 2023-05-03 11:12 | A.OFFVIS_ITS ---
Intake Intake Visit Reasons: PO RT ORIF distal radius 04/20/23 AR Intake Note: Josie 73 yr old female presets today for her P/O visit for her right ORIF distal radius DOS 04/20/23 AR. Dressing removed and xrays updated in office. States her pain is minimal and is doing well over all. Allergies No Known Allergies Allergy (Verified 05/03/23 11:31) HPI PO RT ORIF distal radius 04/20/23 AR HPI Details Josie is a 73 year old right hand dominant woman who presents S/P right distal radius ORIF, DOS: 04/20/23. She says she is doing well and she has little pain, but she has not been moving her fingers and feels very stiff. [facility] Medical History (Updated 05/03/23 @ 11:43 by Kaitlynn Zamora MD) Nasal fracture Vitamin B12 deficiency Vitamin D deficiency Hypercholesterolemia Hypertension Surgical History Hx of wisdom tooth extraction Hx of colonoscopy Family History Mother Dementia Father Suicide Brother No problems noted. Sister No problems noted. Son No problems noted. Social History Housing: House Alcohol intake: never Patient Tobacco Use Status: Former Tobacco user Years Smoked: stopped 2000 e-Cigarette/Vaping Use: Never Used Second Hand Smoke Exposure: No Current occupational status: retired Cognitive needs: No Hearing needs: No Vision needs: No Review of Systems Const All systems reviewed & are unremarkable except as noted in HPI and below Physical Exam Const General: no acute distress and alert Orientation/consciousness: patient oriented x3 Neuro General: patient oriented x3 Extrem Other: The patient was alert oriented and in no acute distress The incision is healing well with no erythema drainage or evidence of infection. Sutures removed and Steri-Strips applied She has significant stiffness in her fingers and her thumb. It seems like she really has not been moving them and they are held in a slightly flexed position. We worked on exercises to bring her fingers to a fist and then to try to bring them into extension. Even before before she left clinic she was not quite able to get her hand flat on the table. She is going to work on these exercises at least 20 times per day. After we worked on her exercises she did feel little bit nauseous and lightheaded. This resolved with some cool air and lying down for a few minutes.. We worked on ROM exercises for more than 15 minutes Sensation is intact Cap refill is brisk Radiographs: 3 views of the right wrist were taken and viewed by me today in clinic. They show a right comminuted distal radius fracture with satisfactory fracture alignment and position of all implants. Psych Appearance: grossly normal Affect: normal affect Attitude: cooperative Assessment & Plan Assessment & Plan (1) Closed fracture of right distal radius: Code(s): S52.501A - Unspecified fracture of the lower end of right radius, initial encounter for closed fracture Qualifiers: Encounter type: initial encounter Fracture morphology: other fracture Qualified Code(s): S52.591A - Other fractures of lower end of right radius, initial encounter for closed fracture (2) Stiffness of hand joint: Code(s): M25.649 - Stiffness of unspecified hand, not elsewhere classified Plan Assessment & Plan: 1. Right distal radius fracture, S/P ORIF 2-parts intra-articular DOS: 04/20/23 The patient appears to be doing well post-operatively I educated her about the post-operative course I explained the signs and symptoms of infection, if the patient develops any new or worsening erythema, drainage, pain, or warmth they should contact the clinic or attend the ED. She was fitted for a velcro wrist splint, to be worn like a cast, except for showering, for the next 3 weeks I ordered OT hand therapy to work on finger ROM exercises, and she will perform at-home exercises 20x daily I discussed activity modifications, she is to lift nothing heavier than a cellphone for the next 4 weeks She should avoid any underwater activities at this time She will follow up in 2-3 weeks for a ROM check, with X-rays, 3V R wrist Scribed for Kaitlynn Zamora MD by Erlin Oliva, director of medical staff services, on 05/03/23 at 11:40 AM, EST. Orders: Orders OT Evaluation and Treatment Today M25.649 - Stiffness of unspecified hand, not elsewhere classified, S52.501A - Unspecified fracture of the lower end of right radius, initial encounter for closed fracture XR wrist RT min 3V Today M25.531 - Pain in right wrist Coding Level of Care Code Global (82644) Diagnoses Other closed fracture of distal end of right radius, initial encounter S52.591A Encounter type: initial encounter Fracture morphology: other fracture Stiffness of hand joint M25.649
== END 2023-05-03 11:54 | disposition home or self-care (01) ==
PROVIDERS: PCP Internal Medicine; Visit Provider Orthopaedic Surgery
DX: S52.591A Other fractures of lower end of right radius, initial encounter for closed fracture (principal); M25.649 Stiffness of unspecified hand, not elsewhere classified
CPT/HCPCS: 99024

== ENCOUNTER 2023-05-17 09:50 | Outpatient (REF) | payer MEDICARE, OTHER, SELFPAY ==
--- NOTE | ~2023-05-17 | XR_ITS ---
EXAMINATION: XR WRIST, RIGHT CLINICAL INFORMATION: Pain. COMPARISON: Prior radiographs, most recently 05/03/2023. TECHNIQUE: PA, lateral, and oblique views of the right wrist. FINDINGS: There is bony demineralization. A comminuted fracture with intra-articular extension is seen of the distal radial metaphysis, in stable alignment. An intact intact orthopedic plate and fixator screws are applied to the distal right radius, without hardware failure or loosening. There is a small avulsion fragment noted arising from the ulnar styloid. The proximal and distal carpal rows are intact. There is no focal soft tissue swelling, gas or foreign body. XR/XR wrist RT min 3V IMPRESSION: There is stable alignment of a comminuted intra-articular fracture of the distal right radius. No hardware failure or loosening is seen. A persistent fracture line is seen, and there is no significant new callus formation.
== END 2023-05-17 09:51 | disposition home or self-care (01) ==
LOC: HO.HOSX 09:50
PROVIDERS: Visit Provider Physician Assistant
DX: S52.591D Other fractures of lower end of right radius, subsequent encounter for closed fracture with routine healing (principal)
CPT/HCPCS: 73110; 99212

== ENCOUNTER 2023-05-17 12:31 | Outpatient (AMB) | payer MEDICARE, OTHER, SELFPAY ==
--- NOTE | 2023-05-17 12:37 | MHC.OFFVIS ---
Intake Intake Visit Reasons: PO RT ORIF distal radius 04/20/23 AR Intake Note: 73 year old right hand dominant female presents to the office today for a PO RT ORIF distal radius 04/20/23. Pt states she is doing much better than her last appt. Pt states she is able to lay her hand flat on a surface now and is still doing OT once a week and is doing the exercises each day that she was shown at OT. Pt denies any numbness,tingling, or swelling. Allergies No Known Allergies Allergy (Verified 05/17/23 12:38) HPI PO RT ORIF distal radius 04/20/23 AR HPI Details 73-year-old right hand dominant female who returns to the office today for post-op right wrist ORIF, 04/20/[address] Zamora. She states she has improvement in her pain since her last visit and denies any swelling, numbness, or tingling. She is working on occupational therapy as instructed. She is doing well overall and has no concerns today. REPLACED BY [facility] Medical History Nasal fracture Vitamin B12 deficiency Vitamin D deficiency Hypercholesterolemia Hypertension Surgical History Hx of wisdom tooth extraction Hx of colonoscopy Family History Mother Dementia Father Suicide Brother No problems noted. Sister No problems noted. Son No problems noted. Social History (Updated 05/17/23 @ 12:39 by Megan Calloway MA) Housing: House Alcohol intake: current Alcohol intake frequency: 0-2 drinks per day Alcohol type: wine Patient Tobacco Use Status: Former Tobacco user Years Smoked: stopped 2000 e-Cigarette/Vaping Use: Never Used Second Hand Smoke Exposure: No Current occupational status: retired Cognitive needs: No Hearing needs: No Vision needs: No Review of Systems Const All systems reviewed & are unremarkable except as noted in HPI and below Physical Exam Extrem Other: Right wrist: Normal to inspection. Surgical scar well healed. She can make a fist and fully extend all the digits. No tenderness over distal radius. NVI. Results Reviewed Results Reviewed: Xrays were obtained in the office today and personally reviewed by me of the right wrist show intact hardware with interval healing of the distal radius. Assessment & Plan Assessment & Plan (1) Closed fracture of right distal radius: Code(s): S52.501A - Unspecified fracture of the lower end of right radius, initial encounter for closed fracture Qualifiers: Encounter type: subsequent encounter Fracture morphology: other fracture Fracture healing: with routine healing Qualified Code(s): S52.591D - Other fractures of lower end of right radius, subsequent encounter for closed fracture with routine healing (2) Status post open reduction and internal fixation (ORIF) of fracture: Code(s): Z98.890 - Other specified postprocedural states; Z87.81 - Personal history of (healed) traumatic fracture Plan She will continue working with physical therapy and continue the use of Velcro wrist splint per Dr. Zamora? instructions to wear as a cast. She can remove the brace for therapy and hygiene only. She will avoid any type of lifting, pushing, pulling or carrying greater than a cellphone for the next 2 weeks, at that time if she is pain free can resume driving as she drives a manual vehicle. She will see us back in 4-[address] Zamora, sooner if needed. Orders: Orders XR wrist RT min 3V Today M25.531 - Pain in right wrist Patient Instructions: Scribed for Tereso Farah PA-C, by Pete Marroquin medical specialist, on 05/17/2023 at 12:30 PM ANTONI. Tereso Hutton PA-C, have personally reviewed and agree with the information entered by the scribe. Coding Level of Care Code Global (82163) Diagnoses Other closed fracture of distal end of right radius with routine healing, subsequent encounter S52.591D Encounter type: subsequent encounter Fracture morphology: other fracture Fracture healing: with routine healing Status post open reduction and internal fixation (ORIF) of fracture Z98.890; Z87.81
== END 2023-05-17 12:55 | disposition home or self-care (01) ==
PROVIDERS: PCP Internal Medicine; Visit Provider Physician Assistant
DX: S52.591D Other fractures of lower end of right radius, subsequent encounter for closed fracture with routine healing (principal); Z98.890 Other specified postprocedural states; Z87.81 Personal history of (healed) traumatic fracture
CPT/HCPCS: 99024

== ENCOUNTER 2023-05-25 14:30 | Outpatient (RCR) | payer MEDICARE, OTHER, SELFPAY ==
--- NOTE | 2023-05-15 16:06 | MHC.OT.EP ---
[address] [phone] Occupational Therapy Plan of Care Patient Name: Josie Moreno I Date of Evaluation: 05/15/23 Diagnosis: Right disal radius fracture Pain Location: Right distal wrist , proximal medial forearm Pain Score: 1 Pain Scale Used: Numeric (0 - 10) Aggravating Factors: Occasional discomfort Alleviating Factors: Avoids heavy use, Assessment: Pt is a 73 yo retired right dominant female 3 weeks 4 days s/p ORIF for a right DR fracture due to a FOOSH when she tripped stepping down from a curl Pt previously active and independent in all areas , currently reports light pain free use of her right hand while respecting po precautions of avoiding lifting . Pt has resolved hand stiffness with her HEP as instructed by Dr Zamora.. Today pt presents with decreased wrist ROM, low mortgage loan processing clerk strength and continued need of protecting surgical repair of her wrist. Pt will benefit from continued OT to progress her therapeutic exercises, progress functional use of her right dominant hand. Pt preferring to attend OT 1x a week at this time Frequency and Duration: The patient will be seen 1x wk x 5 wks Short Term Goals: Indep with HEP for ROM and isometric exercises Wrist extension to 55 deg Wrist flexion to 55 deg Wrist pronation to 70 deg It Architect to > 20 lb Director Of Consumer Affairs Goals: Wrist ext to > 60 deg Wrist flex to > 60 deg It Architect strength to > 40 lb Demonstrate indep with ROM and strengthening ex Full use of right dominant hand with daily activities. Treatment Plan: Therapeutic Exercise Therapeutic Activity Home Exercise Program Patient Education ADL Training Electronically Signed By: Anju Evans OT CHT CLT Please Sign and return to therapist. Thank you once again for your referral.
--- NOTE | 2023-06-07 08:52 | MHC.OT.DC ---
[address] [phone] F: [phone] Occupational Therapy Discharge Note Patient Name: Josie Moreno I Provider: Kaitlynn Zamora Diagnosis: Right disal radius fracture Date of Surgery: 04/20/23 Date of Evaluation: 05/15/23 Date of Discharge: Treatments to Date: 2 Cancellations to Date: 1 No Shows to Date: Discharge Status: Patient Elected to Stop Discharge Summary: Pt 5 wks s/p ORIF for a right DR fracture. Pt is independent with her HEP and demonstrates good awareness of protection technique. She reports increased ease with wrist extension after US treatment. Electronically Signed By: Anju Evans OT CHT CLT Reviewed/agree with student documentation: Therapist: Please Sign and return to therapist, thank you for your referral.
== END 2023-06-07 08:52 | disposition home or self-care (01) ==
LOC: HO.OT 14:30
PROVIDERS: PCP Internal Medicine; Visit Provider Orthopaedic Surgery
DX: S52.501D Unspecified fracture of the lower end of right radius, subsequent encounter for closed fracture with routine healing (principal); M25.641 Stiffness of right hand, not elsewhere classified; Z98.890 Other specified postprocedural states
CPT/HCPCS: 97035; 97110; 97165

== ENCOUNTER 2023-06-27 16:42 | Outpatient (REF) | payer OTHER, SELFPAY | END 2023-06-27 16:43 | disposition home or self-care (01) | LOC: HO.HOSX 16:42 | PROVIDERS: Visit Provider Orthopaedic Surgery | DX: Z13.89 Encounter for screening for other disorder (principal) ==

== ENCOUNTER 2023-06-28 14:18 | Outpatient (REF) | payer MEDICARE, OTHER, SELFPAY ==
--- NOTE | ~2023-06-28 | XR_ITS ---
EXAMINATION: XR WRIST, RIGHT CLINICAL INFORMATION: Pain in wrist. COMPARISON: May 17, 2023 TECHNIQUE: PA, lateral, and oblique views of the right wrist. FINDINGS: The bones are diffusely demineralized. Redemonstration of a comminuted fracture with intra-articular extension at the distal radial metaphysis. Fracture lines are still visible, but less distinct, suggesting some interval bridging callus. Redemonstration of orthopedic plate and fixator screws at the distal right radius. Hardware appears intact. Redemonstration of small avulsion fracture fragments distal ulna/styloid. Degenerative changes in the 1st carpometacarpal and metacarpophalangeal joints. XR/XR wrist RT min 3V IMPRESSION: 1. Redemonstration of a comminuted fracture with intra-articular extension at the distal radial metaphysis. Fracture lines are still visible, but less distinct, suggesting some interval bridging callus. 2. Redemonstration of small avulsion fracture fragments distal ulna/styloid.
== END 2023-06-28 14:19 | disposition home or self-care (01) ==
LOC: HO.HOSX 14:18
PROVIDERS: PCP Internal Medicine; Visit Provider Orthopaedic Surgery
DX: S52.591D Other fractures of lower end of right radius, subsequent encounter for closed fracture with routine healing (principal)
CPT/HCPCS: 73110; 99212

== ENCOUNTER 2023-06-28 14:18 | Outpatient (AMB) | payer MEDICARE, OTHER, SELFPAY ==
--- NOTE | 2023-06-28 14:19 | MHC.OFFVIS ---
Intake Intake Visit Reasons: PO-rt distal orif w AR with xrays Intake Note: Josie 73 year old right hand dominant female presents today for a PO visit for her RT ORIF distal radius 04/20/23.ROM check. Patient was last given a hand brace last visit. Currently state she is doing very well and had D/C using her brace. No concerns at the moment. Allergies No Known Allergies Allergy (Verified 06/28/23 14:35) HPI PO-rt distal orif w AR with xrays HPI Details Josie is a 73 year old right hand dominant woman who presents S/P right distal radius ORIF, DOS: 04/20/23. She says she is doing well, with no complaints of pain. She has discontinued her wrist brace and has been attending OT. She has been doing her exercises, and she is very pleased with the results of her surgery and the exercises to regain her range of motion. [facility] Medical History Nasal fracture Vitamin B12 deficiency Vitamin D deficiency Hypercholesterolemia Hypertension Surgical History Hx of wisdom tooth extraction Hx of colonoscopy Family History Mother Dementia Father Suicide Brother No problems noted. Sister No problems noted. Son No problems noted. Social History Housing: House Alcohol intake: current Alcohol intake frequency: 0-2 drinks per day Alcohol type: wine Patient Tobacco Use Status: Former Tobacco user Years Smoked: stopped 2000 e-Cigarette/Vaping Use: Never Used Second Hand Smoke Exposure: No Current occupational status: retired Cognitive needs: No Hearing needs: No Vision needs: No Review of Systems Const All systems reviewed & are unremarkable except as noted in HPI and below Physical Exam Const General: no acute distress and alert Orientation/consciousness: patient oriented x3 Neuro General: patient oriented x3 Extrem Other: Evaluation of Right Upper Extremity: The patient is alert, oriented, and in no acute distress Neuro: Median, Ulnar, Radial nerves motor and sensory intact and sensation is normal to the tips of all digits Vascular: Cap refill brisk ROM: She can make a fist and extend all her digits with good strength and no pain Full and symmetrical pronosupination Nearly full & symmetrical wrist flexion and extension All in all she has done an excellent job in regaining her hand and wrist range of motion following this injury. Radiographs: 3 views of the right wrist were taken and viewed by me today in clinic. They show a right comminuted distal radius fracture with satisfactory fracture alignment, good evidence of interval bony healing, and position of all implants. The fracture is still visible today on radiographs Psych Appearance: grossly normal Affect: normal affect Attitude: cooperative Assessment & Plan Assessment & Plan (1) Closed fracture of right distal radius: Code(s): S52.501A - Unspecified fracture of the lower end of right radius, initial encounter for closed fracture Qualifiers: Encounter type: subsequent encounter Fracture healing: with routine healing Fracture morphology: other fracture Qualified Code(s): S52.591D - Other fractures of lower end of right radius, subsequent encounter for closed fracture with routine healing (2) Stiffness of hand joint: Code(s): M25.649 - Stiffness of unspecified hand, not elsewhere classified Plan Assessment & Plan: 1. Right distal radius fracture, S/P ORIF 2-parts intra-articular DOS: 04/20/23 The patient appears to be doing well post-operatively She is hapy with the results of her surgery She should continue to perform ROM exercises at home She can engage in daily activities without restriction She can follow up prn Scribed for Kaitlynn Zamora MD by Erlin Oliva, medical lab technologist, on 06/28/23 at 2:55 PM, EST. Orders: Orders XR wrist RT min 3V Today M25.531 - Pain in right wrist Coding Level of Care Code Global (41553) Diagnoses Other closed fracture of distal end of right radius with routine healing, subsequent encounter S52.591D Encounter type: subsequent encounter Fracture healing: with routine healing Fracture morphology: other fracture Stiffness of hand joint M25.649
== END 2023-06-28 15:01 | disposition home or self-care (01) ==
PROVIDERS: PCP Internal Medicine; Visit Provider Orthopaedic Surgery
DX: S52.591D Other fractures of lower end of right radius, subsequent encounter for closed fracture with routine healing (principal); M25.649 Stiffness of unspecified hand, not elsewhere classified
CPT/HCPCS: 99024

== ENCOUNTER 2024-04-04 15:23 | Outpatient (AMB) | payer MEDICARE, OTHER, SELFPAY ==
--- NOTE | 2024-04-04 15:52 | A.OFFPC_ITS ---
Vital Signs 04/04/24 15:53 Height 5 ft 5 in Weight 148 lb 2 oz BMI 24.6 BP 180/90 H Blood Pressure Location Lt brachial Position Sitting Pulse 87 Pulse Source Pulse Oximeter Pulse Oximetry (%) 97 Oxygen Delivery Method Room Air Intake Visit Reasons: PE Field Representatives Director Required: No Accompanied by: Self / Same As Patient Allergies No Known Allergies Allergy (Verified 04/04/24 15:58) Medication List - Last Reconciled 04/04/24 by Thomas Tracey MD atenolol 50 mg PO DAILY lisinopril 10 mg PO DAILY multivitamin (One-A-Day Essential tablet) 1 tab PO DAILY Tobacco use date assessed: 04/04/24 HPI PE HPI Details The patient is a 74-year-old female presenting with follow-up for right wrist fracture, evaluation of essential hypertension, and discussion of bone health. The history begins with a Colles' fracture of the right wrist, sustained while walking outdoors in July. The patient tripped over a protruding segment of sidewalk, impacting her wrist with the force of her entire body weight. Following the fracture, surgical intervention was completed, and she has undergone physical therapy, resulting in improved mobility and reduced pain. Her current medication regimen includes atenolol and lisinopril for hypertension, which has not been well-controlled. The patient reports blood pressure readings gradually increasing over recent months, reaching approximately 150/90 mmHg. The patient denies any lifestyle changes contributing to hypertension, reporting consistent dietary habits and no increase in salty foods or prepared meals. There are no additional underlying chest pains or shortness of breath. Osteopenia was noted prior, and a history of inadequate vitamin D was reported, prompting the recommendation of a multivitamin supplement, which she takes daily with calcium and vitamin C. Other relevant past diagnoses include diverticulosis and hemorrhoids, identified during a previous colonoscopy. - Discussion of adequate vitamin D and c alcium supplementation for bone health - Blood pressure monitoring and medicati on adjustment discussed - Shingles vaccination status to be conf irmed, potential for update - Assessment of current vaccination stat us, including tetanus, flu, and COVID-19 booster - The patient denies any current tobacco or recreational drug use. - Reports consumption of one or two glas ses of red wine occasionally. - Engages in routine self-care and cooki ng at home. - Reports limitation in physical activit y due to recent wrist fracture but has resumed some exercises with caution. - Cardiovascular: Reports elevated blood pressure readings; denies chest pain or palpitations. - Musculoskeletal: Denies current pain i n the wrist; reports generalized right buttock and hip pain. - Gastrointestinal: Denies nausea, vomit ing, swallowing difficulties, or changes in bowel habits. - Renal/Urinary: Denies changes in urina ry habits. - Neurological: Denies dizziness or kai ting spells. - Labs: Fasting blood work ordered for c omprehensive assessment of renal function and electrolyte balance. [facility] Medical History (Updated 04/04/24 @ 16:21 by Thomas Tracey MD) Breast cancer screening by mammogram Colon cancer screening Positive colorectal cancer screening using Cologuard test Nasal fracture Vitamin B12 deficiency Vitamin D deficiency Hypercholesterolemia Hypertension Surgical History Hx of wisdom tooth extraction Hx of colonoscopy Family History Mother Dementia Father Suicide Brother No problems noted. Sister No problems noted. Son No problems noted. Social History (Updated 04/04/24 @ 16:13 by Thomas Tracey MD) Housing: House Alcohol intake: current Alcohol intake frequency: 0-2 drinks per day Alcohol type: wine Comment: 2-4 x amonth 1 -2 glasses of wine Patient Tobacco Use Status: Former Tobacco user Years Smoked: stopped 2000 e-Cigarette/Vaping Use: Never Used Second Hand Smoke Exposure: No Current occupational status: retired Cognitive needs: No Hearing needs: No Vision needs: No Questionnaire PHQ-9 Over the last 2 weeks, how often have you been bothered by any of the following problems? 1. Little interest or pleasure in doing things: not at all 2. Feeling down, depressed, or hopeless: not at all 3. Trouble falling or staying asleep, or sleeping too much: not at all 4. Feeling tired or having little energy: not at all 5. Poor appetite or overeating: not at all 6. Feeling bad about yourself - or that you are a failure or have let yourself or your family down: not at all 7. Trouble concentrating on things, such as reading the newspaper or watching television: not at all 8. Moving or speaking so slowly that other people could have noticed. Or the opposite - being so fidgety or restless that you have been moving around a lot more than usual: not at all 9. Thoughts that you would be better off or of hurting yourself in some way: not at all Total score: 0 Depression Screening Interpretation: Negative Depression Screening Done: Yes 12543 - PHQ-9 Billing: Yes Source: Developed by Drs. Aram Palacio, Nataliya Lu, Henri Montanez and colleagues, with an educational freddie from [employer]. Thrive Questionnaire Date Thrive assessed: 04/04/24 I am a: Patient What is your living situation today?: I have a steady place to live Within the past 12 months, did the food you bought not last and you didn't have the money to get more?: Never true Within the past 12 months, did you worry whether your food would run out before you got money to buy more?: Never true Do you have trouble paying for medicines?: No Do you have trouble getting transportation to medical appointments?: No Do you have trouble paying your heating and electricity bill?: No Do you have trouble taking care of your child, family member or friend?: No Do you have trouble with day-to-day activities such as bathing, preparing meals, shopping, managing finances, etc.?: No Are you currently unemployed and looking for a job?: No Are you interested in more education?: No Please select the resources that you would like help with: None Currently or been in a relationship where the following occur: No concerns reported THRIVE Score: 0 AUDIT C Alcohol Use Questionnaire (AUDIT-C) 1. How often do you have a drink containing alcohol?: 2-4 times a month 2. How many drinks containing alcohol do you have on a typical day when you are drinking?: 1 or 2 3. How often do you have six or more drinks on one occasion?: Never Total Score: 2 MONICA-7 AMB Questionnaire MONICA-7 Date MONICA - 7 assessed: 04/04/24 Feeling nervous, anxious, or on edge: 0 = Not at all Not being able to stop or control worryin = Not at all Worrying too much about different things: 0 = Not at all Trouble relaxin = Not at all Being so restless that it is hard to sit still: 0 = Not at all Becoming easily annoyed or irritable: 0 = Not at all Feeling afraid as if something awful might happen: 0 = Not at all Total MONICA-7 score (0-4 normal; 5-9 mild; 10-14 moderate; 15-21 severe): 0 Source: Developed by Drs. Aram Palacio, Nataliya Lu, Henri Montanez and colleagues, with an educational freddie from [employer]. MONICA-7 Assessment Billing MONICA-7 Assessment Tool: MONICA-7 Assessment 57837 Review of Systems Const Denies poor appetite and Denies weakness Eyes Denies no additional complaints ENT Reports Normal hearing present, Denies dizziness, Denies nasal congestion, Denies tinnitus and Denies sore throat Card Denies chest pain, Denies syncope, Denies rapid heart rate and Denies dyspnea Resp Denies cough and Denies dyspnea GI Denies change in stool character, Reports constipation, Denies diarrhea, Denies nausea and Denies vomiting Denies urinary frequency, Denies difficulty voiding and Denies dysuria Neuro Reports Normal hearing present, Denies confusion, Denies dizziness, Denies syncope and Denies weakness Psych Denies confusion Physical exam (Primary Care) Vital Signs: Last Vital Signs Pulse 87 04/04/24 15:53 BP 180/90 H 04/04/24 15:53 Pulse Ox 97 04/04/24 15:53 Oxygen Delivery Method Room Air 04/04/24 15:53 BMI result Body Mass Index 24.6 Tobacco/Smoking Status: Tobacco use Status Tobacco use date assessed 04/04/24 04/04/24 16:00 Patient Tobacco Use Status Former Tobacco user 04/04/24 16:13 e-Cigarette/Vaping Use Never Used 04/04/24 16:13 PHQ-9: PHQ-9 Score PHQ-9: Total score 0 04/04/24 16:04 Depression Screening Interpretation: Negative Thrive Assessment: Date of Thrive Assessment Date Thrive assessed 04/04/24 04/04/24 16:00 Currently or been in a relationship where the following occur: No concerns reported Const General: No confusion Orientation/consciousness: No confusion HENMT Head: Yes normocephalic Ears: external ears normal and TM's normal bilaterally Face and sinus: Yes normal facial exam Mouth: moist mucous membranes Throat: Yes tonsils normal Eyes Conjunctivae: conjunctivae normal Pupils: Equal, round and reactive pupils present and Pupil accommodation reflex normal Direct Ophthalmoscopy: normal light reflex Neck Neck: No lymphadenopathy Thyroid: Thyroid normal Chest Chest palpation & inspection: normal inspection of the chest Resp Effort & Inspection: normal respiratory effort and no audible wheezes Auscultation: clear to auscultation bilaterally, no crackles, no wheezes and lung sounds not diminished Cardio Rate: regular rate Rhythm: regular rhythm Peripheral pulses: radial pulses present and dorsalis pedis present GI Palpation (GI): no masses Auscultation: normal bowel sounds and normoactive bowel sounds Rectal Exam - Female: deferred Skin General skin exam: no rashes or lesions noted Rashes: no rashes Neuro General: No confusion Cranial nerves: Yes Equal, round and reactive pupils present and Yes Normal hearing present Cognition (Neuro): normal cognition Gait exam (Neuro): Normal gait present Motor exam (neuro): 5/5 motor strength present throughout Deep tendon reflexes (DTR's): Right brachioradialis reflex intensity grade: 2+, Left brachioradialis reflex intensity grade: 2+, Right patellar reflex intensity grade: 2+ and Left patellar reflex intensity grade: 2+ Extrem General: No edema Coding Level of Care Code Est Pt Prev Care >65y(26426) Diagnoses Annual physical exam Z00.00 Essential hypertension I10 Hypertension type: essential hypertension Hypercholesterolemia E78.00 Osteopenia of multiple sites M85.89 Osteopenia location: multiple sites Other closed fracture of distal end of right radius with routine healing, subsequent encounter S52.594Y Encounter type: subsequent encounter Fracture healing: with routine healing Fracture morphology: other fracture Impaired fasting glucose R73.01 Trochanteric bursitis of right hip M70.61 Additional Codes MONICA-7 Assessment Billing - MONICA-7 Assessment Tool: MONICA-7 Assessment 83702 ([id number]) PHQ-9 - 97287 - PHQ-9 Billing: Yes ([id number]) Assessment & Plan Assessment & Plan (1) Annual physical exam: Code(s): Z00.00 - Encounter for general adult medical examination without abnormal findings Category: Medical Plan: Patient is advised to eat healthy, keep well hydrated, keep active and have adequate sleep. (2) Hypertension: Code(s): I10 - Essential (primary) hypertension Category: Medical Qualifiers: Hypertension type: essential hypertension Qualified Code(s): I10 - Essential (primary) hypertension Plan: Continue with blood pressure medication. Decrease salt intake and exercise on atenolol 50 mg once a day lisinopril 10 mg once a day (3) Hypercholesterolemia: Code(s): E78.00 - Pure hypercholesterolemia, unspecified Category: Medical Plan: Avoid fried foods, chicken skin, eggs, butter margarine, pastries and meat. Be it pork or beef they have a lot of cholesterol LDL goal of less than 130 and triglyceride of less than 150 (4) Osteopenia: Comment: February Code(s): M85.80 - Other specified disorders of bone density and structure, unspecified site Category: Medical Qualifiers: Osteopenia location: multiple sites Qualified Code(s): M85.89 - Other specified disorders of bone density and structure, multiple sites Plan: Discussed about calcium and vitamin-D (5) Closed fracture of right distal radius: Comment: Status post ORIF April 2023 Code(s): S52.501A - Unspecified fracture of the lower end of right radius, initial encounter for closed fracture Category: Medical Qualifiers: Encounter type: subsequent encounter Fracture healing: with routine healing Fracture morphology: other fracture Qualified Code(s): S52.591D - Other fractures of lower end of right radius, subsequent encounter for closed fracture with routine healing Plan: Patient had ORIF done April 2023 (6) Impaired fasting glucose: Code(s): R73.01 - Impaired fasting glucose Category: Medical Plan: Decrease the amount of carbohydrate intake, pasta, bread, rice and potatoes are all sugar and that is aside from all the sweet stuff, remember that fruits are good but they are Sweet also. (7) Trochanteric bursitis of right hip: Code(s): M70.61 - Trochanteric bursitis, right hip Category: Medical Plan - Adjust lisinopril dosage to 20 mg for better blood pressure control. - Ensure adequate daily intake of vitamin D and calcium, assess current supplementation efficacy. - Encourage completion of scheduled physical exercises and recommend physical therapy referral for hip pain. - Proceed with ordered fasting blood work for evaluation of renal function. - Confirm vaccination status, specifically shingles, and administer if indicated. - Discuss potential initiation of alendronate therapy for bone health, pending dental evaluation. During the visit, I discussed with the patient the adjustment of her hypertension medication, increasing lisinopril to 20 mg given her persistently elevated readings. We reviewed the importance of maintaining adequate vitamin D and calcium levels to support bone health, especially after her recent wrist fracture. I advised a consultation with a dentist prior to starting alendronate therapy, due to potential side effects involving the jaw. For hip pain, likely due to a trochanteric bursitis, I recommended physical therapy, as well as monitored her response to treatment. I explained the importance of monitoring blood pressure and renal function through fasting blood work. I addressed her queries about RSV vaccination eligibility and clarified the age requirements for coverage. Return for follow-up was advised if symptoms worsened or new concerns arose. - Take lisinopril 20 mg as prescribed and monitor your blood pressure regularly. - Continue taking your multivitamin with additional vitamin D and calcium daily. - Engage in prescribed physical therapy exercises and seek referral for additional therapy for hip pain. - Complete the fasting blood work as ordered to monitor kidney and blood parameters. - Verify and update your vaccination for shingles, if applicable. - Schedule a routine dental check-up to evaluate suitability for osteoporosis treatment. - Report any new or worsening symptoms immediately, particularly regarding blood pressure, the wrist, or hip pain. - Maintain a balanced diet, keep hydrated, and continue your healthy lifestyle habits. Orders: Orders Free T4 (Free Thyroxine) Today E78.00 - Pure hypercholesterolemia, unspecified Vitamin D 25-OH Total Today E78.00 - Pure hypercholesterolemia, unspecified Complete Blood Count Auto Diff Today E78.00 - Pure hypercholesterolemia, unspecified Comprehensive Met. Panel Today E78.00 - Pure hypercholesterolemia, unspecified Hemoglobin A1c Today E78.00 - Pure hypercholesterolemia, unspecified Thyroid Stimulating Hormone Today E78.00 - Pure hypercholesterolemia, unspecified Lipid Panel Today E78.00 - Pure hypercholesterolemia, unspecified Vitamin B12 and Folate Today E78.00 - Pure hypercholesterolemia, unspecified PT Evaluation and Treatment Today M70.61 - Trochanteric bursitis, right hip Medications: Changed From lisinopril 10 mg PO DAILY 90 tabs 0RF I10 - Essential (primary) hypertension To lisinopril 20 mg PO DAILY 90 tabs 1RF I10 - Essential (primary) hypertension
[2024-04-04 15:53] VITALS: BP 180/90; PULSE 87; O2SAT 97; BMI 24.6
== END 2024-04-04 16:26 | disposition home or self-care (01) ==
PROVIDERS: PCP Internal Medicine; Visit Provider Internal Medicine
DX: Z00.00 Encounter for general adult medical examination without abnormal findings (principal); I10 Essential (primary) hypertension; E78.00 Pure hypercholesterolemia, unspecified; M85.89 Other specified disorders of bone density and structure, multiple sites; S52.591D Other fractures of lower end of right radius, subsequent encounter for closed fracture with routine healing; R73.01 Impaired fasting glucose; M70.61 Trochanteric bursitis, right hip

== ENCOUNTER → 2024-04-04 15:23 | Outpatient (BNVA) | payer MEDICARE, OTHER, SELFPAY | PROVIDERS: PCP Internal Medicine; Visit Provider Internal Medicine | DX: Z00.00 Encounter for general adult medical examination without abnormal findings (principal); I10 Essential (primary) hypertension; S52.531D Colles' fracture of right radius, subsequent encounter for closed fracture with routine healing; M85.80 Other specified disorders of bone density and structure, unspecified site; E78.00 Pure hypercholesterolemia, unspecified; M85.89 Other specified disorders of bone density and structure, multiple sites; R73.01 Impaired fasting glucose; M70.61 Trochanteric bursitis, right hip; W18.09XD Striking against other object with subsequent fall, subsequent encounter; Z87.891 Personal history of nicotine dependence; Z79.899 Other long term (current) drug therapy | CPT/HCPCS: 96127; 99397 ==

== ENCOUNTER 2024-05-14 13:52 | Outpatient (RCR) | payer MEDICARE, OTHER, SELFPAY ==
--- NOTE | 2024-04-30 15:08 | MHC.PT.EP ---
[facility] Office [place] Office [place] Office [address] [phone] F: [phone] F: [phone] F: [phone] F: [phone] Physical Therapy Plan of Care Date of Evaluation: 04/30/24 Date of Surgery: Diagnosis: R trochanteric bursitis Assessment: 74 y/o female referred to PT wt R greater trochanteric bursitis. S/s consistent with gluteal tendinopathy resulting in pain and difficulty with walking > 15 minutes, standing, and moving R leg into abduction. Examination shows normal lumbar ROM, decreased R hip ER/IR ROM, decreased hip strength, very flexible hamstring, impaired balance, and impaired gait pattern. Recommend 2x/week for 5 weeks to address impairments, implement HEP, and optimize functional mobility. Frequency and Duration: The patient will be seen 2x/week for 5 weeks Short Term Goals: 3 weeks I with HEP Pt will demonstrate 2x10 bridges without cramping Assisted Goals: 5 weeks i with HEP and self management of sx Pt will be able to ambulate > 30 minutes with pain < 3/10 Pt will be able to stand on R LE for 8 seconds Treatment Plan: Modalities to reduce pain, spasms and effusion. Manual therapy to restore motion and function. Therapeutic exercise to improve strength and flexibility. Neuromuscular re-education for posture and balance. Therapeutic activities to return to functional activities of daily living. Electronically signed by: Yael Romero PT Please sign and return to therapist. Thank you for your referral.
--- NOTE | 2024-06-14 07:11 | MHC.PT.DC ---
[facility] [place] [facility] [place] [facility] [place] [facility] [address] Nathanael Mckeon [address] [phone] F: [phone] F: [phone] F: [phone] F: [phone] Physical Therapy Discharge Report Diagnosis: R trochanteric bursitis Date of Surgery: Date of Evaluation: 04/30/24 Date of Discharge: 06/14/24 Treatments to Date: 3 Cancellations to Date: 2 No Shows to Date: 0 Discharge Status: Improved Function Independent with HEP Patient Elected to Stop Discharge Summary: Pt I with HEP and feels she can manage I and cancelled remaining appointments. D/c at this time Electronically signed by: Yael Romero PT Please sign and return to therapist. Thank you for your referral.
== END 2024-06-14 07:11 | disposition home or self-care (01) ==
LOC: HO.PT 13:52
PROVIDERS: PCP Internal Medicine; Visit Provider Internal Medicine
DX: M70.61 Trochanteric bursitis, right hip (principal)
CPT/HCPCS: 97110; 97112; 97161

== ENCOUNTER 2024-06-07 15:16 | Outpatient (AMB) | payer MEDICARE, OTHER, SELFPAY ==
--- OUTSIDE RECORDS SUMMARY | 2024-06-07 15:18 | XMS_ITS ---
Author Organization [facility] Address [address] [place] [address] Care Team Providers Care Automatic Developer Name Role Phone Thomas Tracey MD Primary Care Provider Aram Almendarez [phone] ALLERGIES No Known Allergies REASON FOR VISIT Patient presents today for FECAL ABNORMALITIES MEDICATIONS Medication SIG (Take, Route, Fr equency, Duration) Notes Start Date End Date Status Lisinopril 10 MG Oral for 90 A ctive Multivitamin - 1 tablet Orally Once a day for 30 day(s) Active Atenolol 50 MG Oral for 90 Act joao SOCIAL HISTORY Tobacco Use: Social History Observation Description Date Details (start date - stop date) Former Smoker NA - NA Sex Assigned At : Social History Observation Description Sex Assigned At Unknown Tobacco Use/Smoking Question Answer Notes Patient is a former smoker How long has it been since you last smoked? > 10 years Alcohol Screen Question Answer Notes Did you have a drink contain ing alcohol in the past year? Yes How often did you have a dri nk containing alcohol in the past year? 4 or more times a week (4 points) How many drinks did you have on a typical day when you were drinking in the past year? 1 or 2 drinks (0 point) How often did you have 6 or more drinks on one occasion in the past year? Never (0 point) Points 4 Interpretation Positive PROBLEMS Problem Type ICD Code Onset Dates Problem Status W/U Status Risk SNOMED Code Notes Problem Positive colorectal cancer screening using Cologuard test (R19.5) Active confirmed [id number] VITAL SIGNS BMI 23.79 kg/m2 12/06/2022 Blood pressure systolic 000 mm Hg 08/22/20 23 Blood pressure diastolic 00 mm Hg 023 Height 65 in 12/06/2022 Temperature 97.1 degrees Fahrenheit 12/07/19 23 Weight 143 lbs 12/06/2022 Encounters Encounter Location Date Provider Diagnosis [facility] [address] [place] [address] 12/06/2022 Aram Gonzalez Positive colorectal cancer screening using Cologuard test R19.5 ASSESSMENTS Encounter Date Diagnosis Assessment Notes Treatment Notes Treatment Clinical Notes 12/06/2022 Positive colorectal cancer screening using Cologuard test (ICD-10 - R19.5) PLAN OF TREATMENT Future Test Test Name Order Date COLONOSCOPY 12/06/2022 Next Appt Details Follow Up: prn, Reason: Progress Notes * Examination Category Sub-Category Detail Notes General Examination GENERAL APPEARANCE: pleasant , well nourished, well developed, in no acute distress HEAD: EYES: sclera non-icteric EARS: NOSE: THROAT: NECK/THYROID: no cervical lymphade nopathy, neck supple HEART: S1, S2 normal CHEST: LUNGS: clear to auscultatio n bilaterally ABDOMEN: normal bowel sounds, no guarding or rigidity, no guarding or rigidity, no masses palpable, soft, nontender, nondistended NEUROLOGIC: alert and oriented SKIN: nonjaundiced, no spi shannon angiomata EXTREMITIES: no edema PERIPHERAL PULSES: BACK: BREASTS: MUSCULOSKELETAL: MALE GENITOURINARY: LYMPH NODES: RECTAL EXAM: FEMALE GENITOURINARY: ORAL CAVITY: mucosa moist
--- OUTSIDE RECORDS SUMMARY | 2024-06-07 15:18 | XMS_ITS | Patient Health Record ---
Author Organization [facility] Address [address] [place] [address] Care Team Providers Care Senior Hardware Design Engineer Name Role Phone Thomas Tracey MD Primary Care Provider Aram Almendarez [phone] ALLERGIES No Known Allergies REASON FOR REFERRAL No Information MEDICATIONS Medication SIG (Take, Route, Fr equency, [...] screening using Cologuard test (R19.5) Active confirmed [id number] Problem Diverticulosis of large intestine without perforation or abscess without bleeding (K57.30) Active confirmed Diverticul ar disease of colon (644912536) PLAN OF TREATMENT Future Test Test Name Order Date COLONOSCOPY 12/06/2022 Insurance Providers Payer Name Payer Address Payer Phone Subscriber Number Group Number Insured Name Patient Relationship to Insured Coverage Start Date Coverage End Date MEDICARE OF [place] [address] [place]HUN [id number] LUCRETIA SPAIN Self - patient is the insured [facility] [address] [place]I Ribera [phone] [id number] LUCRETIA SPAIN Self - patient is the insured MEDICAL (GENERAL) HISTORY Medical History History ICD Code Hypertension Denies NH,DM,CVA,Lung disease,renal dise ase Surgical History Surgery Date(Month/Year)
--- OUTSIDE RECORDS SUMMARY | 2024-06-07 15:19 | XMS_ITS ---
Author Organization [facility] Address [address] [place] [address] Care Team Providers Care Refund Specialist Name Role Phone Thomas Tracey MD Primary Care Provider Aram Almendarez [phone] REASON FOR VISIT Address path with colitis Encounters Encounter Location Date Provider Diagnosis [facility] [address] [place] [address] 01/19/2023 Aram Gonzalez PLAN OF TREATMENT No Information
--- OUTSIDE RECORDS SUMMARY | 2024-06-07 15:19 | XMS_ITS ---
Author Organization [facility] Address [address] [place] [address] Care Team Providers Care Blueprint Engineer Name Role Phone Thomas Tracey MD Primary Care Provider Aram Almendarez [phone] REASON FOR VISIT positive colon ca screening using cologuard PROBLEMS Problem Type ICD Code Onset Dates Problem Status W/U Status Risk SNOMED Code Notes Problem Diverticulosis of large intestine without perforation or abscess without bleeding (K57.30) Active confirmed Diverticul ar disease of colon (359941646) Encounters Encounter Location Date Provider Diagnosis [facility] Outpatient [address] [place], [place] [id number] 01/18/2023 Aram Gonzalez Encounter for scre ening colonoscopy Z12.11 ; Heme positive stool R19.5 ; Other specified diseases of intestine K63.89 ; Diverticulosis of large intestine without perforation or abscess without bleeding K57.30 and Other hemorrhoids K64.8 ASSESSMENTS Encounter Date Diagnosis Assessment Notes Treatment Notes Treatment Clinical Notes 01/18/2023 Encounter for screening colonoscopy (ICD-10 - Z12.11) 01/18/2023 Heme positive stool (ICD-10 - R19.5) 01/18/2023 Other specified diseases of intestine (ICD-10 - K63.89) 01/18/2023 Diverticulosis of large intestine without perforation or abscess without bleeding (ICD-10 - K57.30) 01/18/2023 Other hemorrhoids (ICD-10 - K64.8) PLAN OF TREATMENT No Information
--- NOTE | 2024-06-07 15:20 | MHC.PC.OV ---
Vital Signs 06/07/24 15:24 Height 5 ft 5 in Weight 149 lb 8 oz BMI 24.9 BP 170/110 H Blood Pressure Location Lt brachial Position Sitting Pulse 81 Pulse Source Pulse Oximeter Temp 96.9 F Temp Source Temporal Artery Scan Pulse Oximetry (%) 97 Oxygen Delivery Method Room Air Intake Visit Reasons: preop right eye cataract 06/17 and 07/01 Intake Note: Patient is here for a Pre-op for Cataract scheduled with Dr Fontana on RT eye 06/17/24, left eye 07/01/24. Bridge Attacher Required: No Drilling Engineering Manager: Not Required per policy Accompanied by: Self / Same As Patient Allergies No Known Allergies Allergy (Verified 06/07/24 15:44) Medication List - Last Reconciled 06/07/24 by Sophy Bansal PA-C atenolol 50 mg PO DAILY lisinopril 20 mg PO DAILY multivitamin (One-A-Day Essential tablet) 1 tab PO DAILY Tobacco use date assessed: 06/07/24 Fall risk assessment: No Falls in past year Last assessed Fall Risk: 06/07/24 Dental Screening Dental Screen Date: 06/07/24 Did you have a dental visit in the last 12 months?: Yes Did you have a dental problem in the last 6 months where you did not have access to dental care?: No Was dental information given to patient?: Patient has dentist HPI preop right eye cataract 06/17 and 07/01 HPI Details 74-year-old female with past medical history hypertension, hypercholesterolemia, osteopenia, impaired glucose tolerance last seen 03/2024 coming in for preoperative visit. Patient is scheduled to have cataract surgery with Dr. Fontana 06/17/2024 and 07/01/2024. Patient has had surgery in the past without complication. No history of IL, CVA or CHF. Blood pressures at home have been mildly elevated while taking NSAIDs. Once she discontinue the NSAIDs blood pressure normalized but has been elevated more recently. hypertension: Blood pressure elevated today 178/88 increase lisinopril to 30 mg PFSH Medical History Breast cancer screening by mammogram Colon cancer screening Positive colorectal cancer screening using Cologuard test Nasal fracture Vitamin B12 deficiency Vitamin D deficiency Hypercholesterolemia Hypertension Surgical History History of surgery on right wrist Hx of wisdom tooth extraction Hx of colonoscopy Family History Mother Dementia Father Suicide Brother No problems noted. Sister No problems noted. Son No problems noted. Social History Housing: House Alcohol intake: current Alcohol intake frequency: 0-2 drinks per day Alcohol type: wine Comment: 2-4 x amonth 1 -2 glasses of wine Patient Tobacco Use Status: Former Tobacco user Years Smoked: stopped 2000 e-Cigarette/Vaping Use: Never Used Second Hand Smoke Exposure: Yes service: No Current occupational status: retired Cognitive needs: No Hearing needs: No Vision needs: No Questionnaire PHQ-9 Over the last 2 weeks, how often have you been bothered by any of the following problems? 1. Little interest or pleasure in doing things: not at all 2. Feeling down, depressed, or hopeless: not at all 3. Trouble falling or staying asleep, or sleeping too much: not at all 4. Feeling tired or having little energy: not at all 5. Poor appetite or overeating: not at all 6. Feeling bad about yourself - or that you are a failure or have let yourself or your family down: not at all 7. Trouble concentrating on things, such as reading the newspaper or watching television: not at all 8. Moving or speaking so slowly that other people could have noticed. Or the opposite - being so fidgety or restless that you have been moving around a lot more than usual: not at all 9. Thoughts that you would be better off or of hurting yourself in some way: not at all Total score: 0 Depression Screening Interpretation: Negative Depression Screening Done: Yes Source: Developed by Drs. Aram Palacio, Nataliya Lu, Henri Montanez and colleagues, with an educational freddie from [employer]. Thrive Questionnaire Date Thrive assessed: 06/07/24 I am a: Patient What is your living situation today?: I have a steady place to live Within the past 12 months, did the food you bought not last and you didn't have the money to get more?: Never true Within the past 12 months, did you worry whether your food would run out before you got money to buy more?: Never true Do you have trouble paying for medicines?: No Do you have trouble getting transportation to medical appointments?: No Do you have trouble paying your heating and electricity bill?: No Do you have trouble taking care of your child, family member or friend?: No Do you have trouble with day-to-day activities such as bathing, preparing meals, shopping, managing finances, etc.?: No Are you currently unemployed and looking for a job?: No Are you interested in more education?: No Please select the resources that you would like help with: None Currently or been in a relationship where the following occur: No concerns reported THRIVE Score: 0 AUDIT C Alcohol Use Questionnaire (AUDIT-C) 2. How many drinks containing alcohol do you have on a typical day when you are drinking?: 1 or 2 3. How often do you have six or more drinks on one occasion?: Never Total Score: 0 MONICA-7 AMB Questionnaire MONICA-7 Date MONICA - 7 assessed: 06/07/24 Feeling nervous, anxious, or on edge: 0 = Not at all Not being able to stop or control worryin = Not at all Worrying too much about different things: 0 = Not at all Trouble relaxin = Not at all Being so restless that it is hard to sit still: 0 = Not at all Becoming easily annoyed or irritable: 0 = Not at all Feeling afraid as if something awful might happen: 0 = Not at all Total MONICA-7 score (0-4 normal; 5-9 mild; 10-14 moderate; 15-21 severe): 0 Source: Developed by Drs. Aram Palacio, Nataliya Lu, Henri Montanez and colleagues, with an educational freddie from [employer]. Review of Systems Const Denies body aches, Denies chills, Denies fever(s), Denies headache(s) and Denies poor appetite Eyes Reports no additional complaints ENT Denies dysphagia, Denies dizziness, Denies headache(s) and Denies odynophagia Card Denies chest pain, Denies syncope, Denies edema, Denies irregular heart rhythm, Denies lightheadedness and Denies dyspnea Resp Denies cough and Denies dyspnea GI Denies abdominal pain, Denies constipation, Denies dysphagia, Denies diarrhea, Denies nausea, Denies odynophagia and Denies vomiting Reports no additional complaints Musc Reports no additional complaints and Denies abnormal gait Skin/Breast Reports system reviewed and no additional complaints, except as documented Neuro Denies abnormal gait, Denies dizziness, Denies syncope and Denies headache(s) Psych Reports no additional complaints Physical exam (Primary Care) Vital Signs: Last Vital Signs Temp 96.9 F 06/07/24 15:24 Oxygen Delivery Method Room Air 06/07/24 15:24 BMI result Body Mass Index 24.9 Tobacco/Smoking Status: Tobacco use Status Tobacco use date assessed 04/04/24 04/04/24 16:00 Patient Tobacco Use Status Former Tobacco user 04/04/24 16:13 e-Cigarette/Vaping Use Never Used 04/04/24 16:13 Depression Screening Interpretation: Negative Thrive Assessment: Date of Thrive Assessment Date Thrive assessed 06/07/24 06/07/24 15:17 Currently or been in a relationship where the following occur: No concerns reported Const General: cooperative, healthy appearing, comfortable and no acute distress Orientation/consciousness: patient oriented x3 HENMT Head: Yes normocephalic Ears: hearing grossly normal bilaterally General nose exam: Normal external nose present Eyes General: appearance normal, both eyes and all related structures Conjunctivae: conjunctivae normal Neck Neck: Yes full ROM and Yes no lymphadenopathy Resp Effort & Inspection: normal respiratory effort Auscultation: clear to auscultation bilaterally, no crackles, no rales, no rhonchi and no wheezes Cardio Rate: regular rate Rhythm: regular rhythm Skin General skin exam: no rashes or lesions noted Neuro General: patient oriented x3 Gait exam (Neuro): Normal gait present Extrem General: Yes normal to inspection, Yes full ROM and No edema Psych Affect: normal affect Attitude: cooperative Insight: Good insight present (Psych) Judgement: Good judgement present (Psych) Coding Level of Care Code Est Pt Level 4 (89156) Diagnoses Pre-op examination Z01.818 Assessment & Plan Assessment & Plan (1) Pre-op examination: Code(s): Z01.818 - Encounter for other preprocedural examination Category: Medical Plan: Regarding preop clearance, the patient is at low-moderate risk for proposed surgery due to age and history of hypertension. Reviewed with the patient that no surgery is completely free of risk and that this examination is to assist the surgeon in reviewing informed consent. Blood pressure elevated today in the office plan to increase lisinopril to 30 mg. I did discuss with patient if blood pressure is too elevated surgeon we will not perform surgery. Plan to increase lisinopril for optimal blood pressure control ultimately will be up to surgeon's discretion depending on blood pressure on the day of the surgery. Ordered for blood work for further evaluation addendum will be added to this note once blood work has been reviewed. Plan This note was constructed using voice recognition software. While every effort has been made to ensure accuracy and pile driving supervisor, still areas may have been included sometimes these areas may affect the content or meeting of the given symptoms. Total time spent caring for the patient today was 20 minutes. This includes time spent before the visit reviewing the chart, time spent during the visit, and time spent after the visit and documentation. Medications: New lisinopril 30 mg PO DAILY 90 tabs 0RF Discontinued lisinopril Discontinued Reason: Patient no longer taking 20 mg PO DAILY 90 tabs 1RF I10 - Essential (primary) hypertension
[2024-06-07 15:24] VITALS: BP 170/110; PULSE 81; TEMP 36.1; O2SAT 97; BMI 24.9
== END 2024-06-07 15:56 | disposition home or self-care (01) ==
PROVIDERS: PCP Internal Medicine
DX: Z01.818 Encounter for other preprocedural examination (principal)

== ENCOUNTER → 2024-06-07 15:16 | Outpatient (BNVA) | payer MEDICARE, OTHER, SELFPAY | PROVIDERS: PCP Internal Medicine | DX: Z01.818 Encounter for other preprocedural examination (principal) | CPT/HCPCS: 99212 ==

== ENCOUNTER 2024-06-11 10:42 | Outpatient (REF) | payer MEDICARE, OTHER, SELFPAY ==
[2024-06-11 12:56] LABS: MANUAL DIFF FLAG NO
[2024-06-11 13:01] LABS: Basophils Absolute Auto 0.1 X10*3/uL (0.0-0.2); Eosinophils Absolute Auto 0.2 X10*3/uL (0.0-0.4); Eosinophils Percent Auto 1.9 % (0-4); Hematocrit 42.1 % (37.0-47.0); Hemoglobin 14.3 g/dl (12.0-16.0); Imm Gran Abs Auto 0.03 X10*3/uL (0.00-0.03); Imm Gran Pct Auto 0.3 % (0.0-0.4); Lymphocytes Absolute Auto 1.6 X10*3/uL (1.2-4.9); Lymphocytes Percent Auto 13.9 % (20-40); Mean Corpuscular Hemoglobin 31.6 pg (27.0-33.0); Mean Corpuscular Volume 92.9 fL (80.0-98.0); Mean Platelet Volume 10.2 fL (9.4-12.3); Monocytes Absolute Auto 1.1 X10*3/uL (0.1-1.2); Monocytes Percent Auto 9.2 % (2-11); Neutrophils Absolute Auto 8.7 x10*3/uL (2.0-8.3); Neutrophils Percent Auto 73.7 % (45-73); Platelet Count 337 X10*3/uL (160-400); Red Blood Count 4.53 X10*6/uL (4.20-5.50); White Blood Count 11.8 X10*3/uL (4.8-10.8)
[2024-06-11 13:17] LABS: Alanine Aminotransferase 12 U/L (0-31); Albumin Level 4.4 g/dL (3.5-5.0); Alkaline Phosphatase 85 U/L (39-117); Anion Gap 14 (12-20); Aspartate Amino Transferase 20 U/L (5-31); Bilirubin Total 0.8 mg/dL (0.0-1.0); Blood Urea Nitrogen 18 mg/dL (9-16); Calcium 9.8 mg/dL (8.4-10.2); Carbon Dioxide 27 mmol/L (22-29); Chloride 100 mmol/L (96-108); Cholesterol 267 mg/dL (<200); Estimated Glomerular Filt Rate > 60; Glucose Random 121 mg/dL (60-115); HDL Cholesterol 94 mg/dL (>40); LDL Cholesterol Calculated 151 mg/dL (<100); Potassium 4.2 mmol/L (3.3-5.1); Sodium 137 mmol/L (135-145); Triglycerides 110 mg/dL (<150)
[2024-06-11 13:18] LABS: Estimated Average Glucose 103 mg/dL; Hemoglobin A1c % 5.2 % (<6.0)
[2024-06-11 13:33] LABS: Free T4 (Free Thyroxine) 1.02 ng/dL (0.71-1.85); Thyroid Stimulating Hormone 1.41 uIU/mL (0.32-4.0); Vitamin D 25-OH Total 71.8 ng/mL (>30)
[2024-06-11 13:44] LABS: Folate 15.5 ng/mL (> or = 4.0); Vitamin B12 515 pg/mL (200-900)
== END 2024-06-11 10:43 | disposition home or self-care (01) ==
LOC: HO.10HDL 10:42
PROVIDERS: Visit Provider Internal Medicine
DX: E78.00 Pure hypercholesterolemia, unspecified (principal); Z13.1 Encounter for screening for diabetes mellitus
CPT/HCPCS: 36415; 80053; 80061; 82306; 82607; 82746; 83036; 84439; 84443; 85025

== ENCOUNTER 2024-06-17 08:05 | Day surgery (SDC) | payer MEDICARE, OTHER, SELFPAY ==
[2024-06-13 07:08] VITALS: BMI 24.8
--- NOTE | 2024-06-13 15:23 | HO.ANESPROP2 ---
HPI - Anesthesia Eval Consult details Narrative: 74yo F for Right Cataract Extraction IOL Insertion No previous cataract on record PMFSH Active Problems Active Problems: All Active Problems Pre-op examination (Acute) Trochanteric bursitis of right hip (Acute) Status post open reduction and internal fixation (ORIF) of fracture (Acute) Stiffness of hand joint (Acute) Closed fracture of right distal radius (Acute) Impaired fasting glucose (Acute) Annual physical exam (Acute) Osteopenia (Acute) Annual physical exam (Acute) Hypercholesterolemia (Acute) Hypertension (Acute) Past Medical History Medical History Breast cancer screening by mammogram Colon cancer screening Positive colorectal cancer screening using Cologuard test Nasal fracture Vitamin B12 deficiency Vitamin D deficiency Hypercholesterolemia Hypertension Family History Family History Mother Dementia Father Suicide Brother No problems noted. Sister No problems noted. Son No problems noted. Family history of problems with anesthesia: No Surgical History Surgical History History of surgery on right wrist Hx of wisdom tooth extraction Hx of colonoscopy History of Problems with Anesthesia: No Social History Social History Housing: House Do you presently have visiting nurse or other home services: No Alcohol intake: current Alcohol intake frequency: a few times a month Alcohol type: wine Comment: 2-4 x amonth 1 -2 glasses of wine Patient Tobacco Use Status: Former Tobacco user Years Smoked: stopped 2000 e-Cigarette/Vaping Use: Never Used Second Hand Smoke Exposure: Yes Advance Directives: No Advance Directives Information Provided: No Advance Directives on File: No Recently lost weight without trying: No Eating poorly because of decreased appetite: No Nutrition Risks: No Nutritional Risk Patient : No : No service: No Current occupational status: retired Cognitive needs: No Hearing needs: No Vision needs: No Meds Allergies Allergy/AdvReac Type Severity Reaction Status Date / Time No Known Allergies Allergy Verified 06/07/24 15:44 Home Medications ?Medication ?Instructions ?Recorded ?Confirmed ?Last Taken ?Type multivitamin (One-A-Day Essential 1 tab PO DAILY 09/18/20 06/13/24 Unknown History tablet) Exam Height,Weight and Vital Signs: Height 5 ft 5 in Weight 67.585 kg Assessment and Plan Assessment Anesthesia Assessment: Chart Reviewed Final Anesthetic Review Family History of Problems with Anesthesia: No History of Problems with Anesthesia: No
[2024-06-17 08:59] VITALS: BMI 24.7
[2024-06-17] MEDS: Tetracaine HCl/PF 0.5% Oph Sol 4 ML DROPS 1 DROP EYE-RIGHT (08:59)
[2024-06-17] MEDS: Cyclopentolate 1 % Ophth Sol 2 ML DRPBTL 1 DROP EYE-RIGHT ×3 (09:00→09:16)
[2024-06-17] MEDS: Tropicamide 1 % Ophth Sol 3 ML BTL 1 DROP EYE-RIGHT ×3 (09:02→09:18)
[2024-06-17] MEDS: Ketorolac Tromethamine 0.5% Op 5 ML DROPS 1 DROP EYE-RIGHT ×3 (09:04→09:20)
[2024-06-17 09:05] VITALS: BP 173/76; PULSE 83; RESP 16; TEMP 36.7; O2SAT 97
[2024-06-17] MEDS: Phenylephrine HCL 2.5% Oph SoL 2 ML BOTTLE 1 DROP EYE-RIGHT ×3 (09:06→09:22)
[2024-06-17] MEDS: Lactated Ringers 500 ML 50 ML IV (09:17)
--- NOTE | 2024-06-17 10:02 | MHC.SHP ---
Pre-Procedural Eval Section A - 24 Hr Update-Section A only Date of Service: 06/17/24 The patient is an INPATIENT: No Changes since office visit: No Cold of Flu in the past 2 weeks, No New Medical Problems, No Changes in Medication and No Patient answered all questions The patient has been examined within 24 hours of the surgical procedure. The History & Physical has been completed within 30 days and I have reviewed it.: Yes Section B - Complete if H&P > 30 days Chief Complaint: Age-related nuclear cataract, right eye Allergies: Allergies Allergy/AdvReac Type Severity Reaction Status Date / Time No Known Allergies Allergy Verified 06/17/24 09:02 Plan Diagnosis/Plan: Unchanged I have reviewed the history and physical and performed a pertinent physical examination on my patient. No changes have occurred unless specified. Time Spent With Patient Time: Total time managing care of this patient today ____ minutes.
--- NOTE | 2024-06-17 10:03 | P.PCNO_ITS ---
Ophthalmology Procedure Procedure Date of Service: 06/17/24 Ophthalmology Viscoelastic: Healon Duet Dual Pack Pro Ophthalmology Lenses: IOL Acrysof MP - MA60AC (19.5) Procedure Notes: PREOPERATIVE DIAGNOSIS: Decreased visual acuity right eye secondary to cataract POSTOPERATIVE DIAGNOSIS: Same PROCEDURE: Right cataract extraction with intraocular lens insertion SURGEON: Carter Fontana M.D. ANESTHESIA: Topical/MAC ESTIMATED BLOOD LOSS: None COMPLICATIONS: None After obtaining informed consent, the patient was brought to the operating room suite and placed in the supine position. After adequate sedation per anesthesia, topical drops of Tetracaine were given to the right eye. The eye was then prepped and draped in the usual sterile fashion. The operating room microscope was then positioned over the operative eye and a lid speculum placed. A paracentesis was created. Viscoelastic was then instilled into the anterior chamber. A three plane incision was then created temporally, utilizing a 2.85 mm keratome. Capsulotomy forceps were then utilized to create a circular tear capsulotomy. Hydrodissection and hydrodelineation were carried out until adequate mobilization of the nucleus occurred. Phacoemulsification was then utilized to remove the dense central nu cleus followed by removal of the cortical material utilizing the automated aspiration irrigation unit. Viscoelastic was instilled into the posterior capsular bag followed by placement of a posterior chamber intraocular lens without difficulty. The residual Viscoelastic was then removed utilizing the automated IA machine. The wound was checked and found to be watertight. The patient tolerated the procedure well and the lid speculum was removed. Intracameral injection of Vigamox 0.1 mL followed by a subtenon injection of Kenalog-40 0.2 mL were administered. The patient will be seen in the a.m.
[2024-06-17 10:26] VITALS: BP 146/74; PULSE 77; RESP 16; TEMP 36.7; O2SAT 98
== END 2024-06-17 10:42 | disposition home or self-care (01) ==
PROVIDERS: PCP Internal Medicine; Visit Provider Ophthalmology
PROC: (CPT 66985; principal; 2024-06-17 10:00)
DX: H25.11 Age-related nuclear cataract, right eye (principal); H54.7 Unspecified visual loss; H40.013 Open angle with borderline findings, low risk, bilateral; H52.03 Hypermetropia, bilateral; H18.413 Arcus senilis, bilateral; I10 Essential (primary) hypertension; E78.00 Pure hypercholesterolemia, unspecified; R73.02 Impaired glucose tolerance (oral); M85.80 Other specified disorders of bone density and structure, unspecified site; Z79.899 Other long term (current) drug therapy; Z87.891 Personal history of nicotine dependence
CPT/HCPCS: 66984; J2250; J3301; V2630

== ENCOUNTER 2024-07-01 08:17 | Day surgery (SDC) | payer MEDICARE, OTHER, SELFPAY ==
[2024-06-13 07:23] VITALS: BMI 24.8
--- NOTE | 2024-06-27 14:33 | HO.ANESPROP2 ---
Documented by User: Vero Villafuerte NP 06/27/24 14:33 HPI - Anesthesia Eval Consult details Narrative: 74yo F for Left Cataract Extraction IOL Insertion Right eye 06/17/24: Midaz 2 PMFSH Active Problems Active Problems: All Active Problems Pre-op examination (Acute) Trochanteric bursitis of right hip (Acute) Status post open reduction and internal fixation (ORIF) of fracture (Acute) Stiffness of hand joint (Acute) Closed fracture of right distal radius (Acute) Impaired fasting glucose (Acute) Annual physical exam (Acute) Osteopenia (Acute) Annual physical exam (Acute) Hypercholesterolemia (Acute) Hypertension (Acute) Past Medical History Medical History Breast cancer screening by mammogram Colon cancer screening Positive colorectal cancer screening using Cologuard test Nasal fracture Vitamin B12 deficiency Vitamin D deficiency Hypercholesterolemia Hypertension Family History Family History Mother Dementia Father Suicide Brother No problems noted. Sister No problems noted. Son No problems noted. Family history of problems with anesthesia: No Surgical History Surgical History History of surgery on right wrist Hx of wisdom tooth extraction Hx of colonoscopy History of Problems with Anesthesia: No Social History Social History Housing: House Do you presently have visiting nurse or other home services: No Alcohol intake: current Alcohol intake frequency: a few times a month Alcohol type: wine Comment: 2-4 x amonth 1 -2 glasses of wine Patient Tobacco Use Status: Former Tobacco user Years Smoked: stopped 2000 e-Cigarette/Vaping Use: Never Used Second Hand Smoke Exposure: Yes Have you been hit, kicked, punched, or otherwise hurt by someone within the past year? If so, by whom?: No Advance Directives: No Advance Directives Information Provided: Yes Advance Directives on File: No Nutrition Risks: No Nutritional Risk Patient : No : No service: No Current occupational status: retired Cognitive needs: No Hearing needs: No Vision needs: No Meds Allergies Allergy/AdvReac Type Severity Reaction Status Date / Time No Known Allergies Allergy Verified 06/17/24 09:02 Home Medications ?Medication ?Instructions ?Recorded ?Confirmed ?Last Taken ?Type multivitamin (One-A-Day Essential 1 tab PO DAILY 09/18/20 06/17/24 Unknown History tablet) Exam Height,Weight and Vital Signs: Height 5 ft 5 in Weight 67.585 kg Assessment and Plan Assessment Anesthesia Assessment: Chart Reviewed Final Anesthetic Review Family History of Problems with Anesthesia: No History of Problems with Anesthesia: No Documented by User: Aubrie Cordero MD 07/01/24 09:03 [facility] Past Medical History Medical History Breast cancer screening by mammogram Colon cancer screening Positive colorectal cancer screening using Cologuard test Nasal fracture Vitamin B12 deficiency Vitamin D deficiency Hypercholesterolemia Hypertension Family History Family History Mother Dementia Father Suicide Brother No problems noted. Sister No problems noted. Son No problems noted. Surgical History Surgical History History of surgery on right wrist Hx of wisdom tooth extraction Hx of colonoscopy Social History Social History Housing: House Do you presently have visiting nurse or other home services: No Alcohol intake: current Alcohol intake frequency: a few times a month Alcohol type: wine Comment: 2-4 x amonth 1 -2 glasses of wine Patient Tobacco Use Status: Former Tobacco user Years Smoked: stopped 2000 e-Cigarette/Vaping Use: Never Used Second Hand Smoke Exposure: Yes Have you been hit, kicked, punched, or otherwise hurt by someone within the past year? If so, by whom?: No Advance Directives: No Advance Directives Information Provided: Yes Advance Directives on File: No Nutrition Risks: No Nutritional Risk Patient : No : No service: No Current occupational status: retired Cognitive needs: No Hearing needs: No Vision needs: No Meds Allergies Allergy/AdvReac Type Severity Reaction Status Date / Time No Known Allergies Allergy Verified 06/17/24 09:02 Home Medications ?Medication ?Instructions ?Recorded ?Confirmed ?Last Taken ?Type multivitamin (One-A-Day Essential 1 tab PO DAILY 09/18/20 06/17/24 Unknown History tablet) Exam Airway Mallampati Class: II (multiple caps through out) TM Dist: >3cm Neck ROM: Full Heart: rrr Lungs: cta Assessment and Plan Assessment Anesthesia Assessment: Anesthesia Plan Discussed Final Anesthetic Review NPO: Yes ASA Class: II Final Preanesthetic Review: No Changes in Pt Med Stat, Meds/Allgs Chart Reviewed and Consent Obtained/Reviewed Patient Risk: Low Procedure Risk: Low Anesthetic Plan Anesthetic Plan: MAC: Disposition: Standard PACU
[2024-07-01] MEDS: Tetracaine HCl/PF 0.5% Oph Sol 4 ML DROPS 1 DROP EYE-LEFT (08:47)
[2024-07-01] MEDS: Cyclopentolate 1 % Ophth Sol 2 ML DRPBTL 1 DROP EYE-LEFT ×3 (08:49→09:02)
[2024-07-01] MEDS: Tropicamide 1 % Ophth Sol 3 ML BTL 1 DROP EYE-LEFT ×3 (08:51→09:03)
[2024-07-01] MEDS: Ketorolac Tromethamine 0.5% Op 5 ML DROPS 1 DROP EYE-LEFT ×3 (08:52→09:04)
[2024-07-01] MEDS: Phenylephrine HCL 2.5% Oph SoL 2 ML BOTTLE 1 DROP EYE-LEFT ×3 (08:54→09:06)
[2024-07-01 08:55] VITALS: BP 154/79; PULSE 73; RESP 15; TEMP 36.4; O2SAT 98
[2024-07-01] MEDS: Lactated Ringers 500 ML 50 ML IV (08:57)
--- NOTE | 2024-07-01 09:37 | MHC.SHP ---
Pre-Procedural Eval Section A - 24 Hr Update-Section A only Date of Service: 07/01/24 The patient is an INPATIENT: No Changes since office visit: No Cold of Flu in the past 2 weeks, No New Medical Problems, No Changes in Medication and No Patient answered all questions The patient has been examined within 24 hours of the surgical procedure. The History & Physical has been completed within 30 days and I have reviewed it.: Yes Section B - Complete if H&P > 30 days Chief Complaint: Age-related nuclear cataract, left eye Allergies: Allergies Allergy/AdvReac Type Severity Reaction Status Date / Time No Known Allergies Allergy Verified 07/01/24 09:09 Plan Diagnosis/Plan: Unchanged I have reviewed the history and physical and performed a pertinent physical examination on my patient. No changes have occurred unless specified. Time Spent With Patient Time: Total time managing care of this patient today ____ minutes.
--- NOTE | 2024-07-01 09:38 | HO.PNOPHT ---
Ophthalmology Procedure Procedure Date of Service: 07/01/24 Ophthalmology Viscoelastic: Healon Duet Dual Pack Pro Ophthalmology Lenses: IOL Acrysof MP - MA60AC (22.5) Procedure Notes: PREOPERATIVE DIAGNOSIS: Decreased visual acuity left eye secondary to cataract POSTOPERATIVE DIAGNOSIS: Same PROCEDURE: Left cataract extraction with intraocular lens insertion SURGEON: Carter Fontana M.D. ANESTHESIA: Topical/MAC ESTIMATED BLOOD LOSS: None COMPLICATIONS: None After obtaining informed consent, the patient was brought to the operation room suite and placed in the supine position. After adequate sedation per anesthesia, topical drops of Tetracaine were given to the left eye. The eye was then prepped and draped in the usual sterile fashion. The operating room microscope was then positioned over the operative eye and a lid speculum placed. A paracentesis was created. Viscoelastic was then instilled into the anterior chamber. A three plane incision was then created temporally, utilizing a 2.85 mm keratome. Capsulotomy forceps were then utilized to create a circular tear capsulotomy. Hydrodissection and hydrodelineation were carried out until adequate mobilization of the nucleus occurred. Phacoemulsification was then utilized to remove the dense central nucleus followed by removal of the cortical material utilizing the automated aspiration irrigation unit. Viscoat elastic was instilled into the posterior capsular bag followed by placement of a posterior chamber intraocular lens without difficulty. The residual Viscoat elastic was then removed utilizing the automated IA machine. The wound was check and found to be watertight. The patient tolerated the procedure well and the lid speculum was removed. Intracameral injection of Vigamox 0.1 mL followed by a subtenon injection of Kenalog-40 0.2 mL were administered. The patient will be seen in the a.m.
[2024-07-01 10:00] VITALS: BP 123/64; PULSE 67; RESP 16; TEMP 36.6; O2SAT 99
[2024-07-01 10:15] VITALS: BP 143/70; PULSE 61; RESP 16; TEMP 36.6; O2SAT 97
== END 2024-07-01 10:15 | disposition home or self-care (01) ==
PROVIDERS: PCP Internal Medicine; Visit Provider Ophthalmology
PROC: (CPT 66985; principal; 2024-07-01 10:00)
DX: H25.12 Age-related nuclear cataract, left eye (principal); H54.7 Unspecified visual loss; H40.013 Open angle with borderline findings, low risk, bilateral; H52.03 Hypermetropia, bilateral; H18.413 Arcus senilis, bilateral; I10 Essential (primary) hypertension; E78.00 Pure hypercholesterolemia, unspecified; R73.02 Impaired glucose tolerance (oral); M85.80 Other specified disorders of bone density and structure, unspecified site; E55.9 Vitamin D deficiency, unspecified; E53.8 Deficiency of other specified B group vitamins; Z79.899 Other long term (current) drug therapy; Z87.891 Personal history of nicotine dependence
CPT/HCPCS: 66984; J2250; J3301; V2630

== ENCOUNTER 2024-07-04 13:18 | Outpatient (REF) | payer MEDICARE, OTHER, SELFPAY ==
--- NOTE | ~2024-07-04 | XR_ITS ---
CLINICAL HISTORY: M70.61 - Trochanteric bursitis, right hip 2 view right hip Comparison: None Findings: The bones are intact. There are changes of severe osteoarthritis. The soft tissues are unremarkable. There is regional arterial calcification IMPRESSION: No acute findings. This document has been electronically signed by: Priyank Pollack MD on 07/06/2024 08:07:29
== END 2024-07-04 13:19 | disposition home or self-care (01) ==
LOC: HO.XRAY 13:18
PROVIDERS: PCP Internal Medicine; Visit Provider Internal Medicine
DX: M70.61 Trochanteric bursitis, right hip (principal)
CPT/HCPCS: 73502

== ENCOUNTER → 2024-07-04 13:25 | Outpatient (BNV) | payer MEDICARE, OTHER, SELFPAY | PROVIDERS: PCP Internal Medicine; Visit Provider Specialist | DX: M70.61 Trochanteric bursitis, right hip (principal) | CPT/HCPCS: 73502 ==

== ENCOUNTER 2024-08-01 14:03 | Outpatient (AMB) | payer MEDICARE, OTHER, SELFPAY ==
--- NOTE | 2024-08-01 14:08 | MHC.OFFVIS ---
Vital Signs 08/01/24 14:09 Height 5 ft 5 in Weight 143 lb BMI 23.8 Intake Visit Reasons: New[facility]- RT hip OA (Xray in chart 07/04/24) Intake Note: Josie is a 74 year old female who presents today for a new problem with complaints of right hip pain. Patient reports that she has had ongoing right hip pain for about 2 years now. She has done physical therapy and continues to do exercise program at home but she feels little to no relief. Her pain is felt in the groin, laterally along the hip joint as well as in the right buttock. Her pain is felt all the time. She was taking Ibuprofen but this spiked her Blood Pressure so she has doscontinued she occasianlly will take Aleve with temporary relief. Allergies No Known Allergies Allergy (Verified 08/01/24 14:11) HPI HPI New[facility]- RT hip OA (Xray in chart 07/04/24): Details: This is a 74-year-old woman with several years of worsening hip pain. She describes difficulty walking, getting into and out of a chair or engaging in meaningful daily activities. She enjoys walking and being active. Her only medical condition that is high blood pressure which is adversely affected NSAIDs. [facility] Medical History Breast cancer screening by mammogram Colon cancer screening Positive colorectal cancer screening using Cologuard test Nasal fracture Vitamin B12 deficiency Vitamin D deficiency Hypercholesterolemia Hypertension Surgical History History of surgery on right wrist Hx of wisdom tooth extraction Hx of colonoscopy Family History Mother Dementia Father Suicide Brother No problems noted. Sister No problems noted. Son No problems noted. Social History Housing: House Do you presently have visiting nurse or other home services: No Alcohol intake: current Alcohol intake frequency: a few times a month Alcohol type: wine Comment: 2-4 x amonth 1 -2 glasses of wine Patient Tobacco Use Status: Former Tobacco user Years Smoked: stopped 2000 e-Cigarette/Vaping Use: Never Used Second Hand Smoke Exposure: Yes service: No Current occupational status: retired Cognitive needs: No Hearing needs: No Vision needs: No Physical Exam Vital Signs: BMI result Body Mass Index 23.8 Extrem Other: On physical exam she has a 2+ dorsalis pedis pulse and has tenderness to palpation over the greater trochanter that is mild. She has positive impingement test and walks with a Trendelenburg gait. Results Reviewed Results Reviewed: I personally reviewed relevant radiographs. Severe right hip osteoarthritis. Assessment & Plan Assessment & Plan (1) Osteoarthritis of right hip: Code(s): M16.11 - Unilateral primary osteoarthritis, right hip Category: Medical Plan: This is a 74-year-old woman with severe osteoarthritis of the right hip. She has tried physical therapy, activity modification and NSAIDs and I recommend right hip replacement. She is active healthy and her radiographs show severe disease. I discussed the surgery with her. I discussed the risks, benefits and alternatives of surgery including, but not limited to, the risk of infection, dislocation, fracture, need for additional surgery as well as medical complications associated with surgery such as blood clots among urinary tract infections pulmonary emboli. I will introduce her to our nurse navigator and begin preoperative clearance process. All her questions were answered. Coding Level of Care Code Est Pt Level 4 (67241) Diagnoses Osteoarthritis of right hip M16.11
[2024-08-01 14:09] VITALS: BMI 23.8
--- OUTSIDE RECORDS SUMMARY | 2024-08-01 17:08 | XMS_ITS | Patient Health Record ---
Author Organization [facility] Address [address] [place] [address] Care Team Providers Care Chief Service Dispatcher Name Role Phone Thomas Tracey MD Primary Care Provider Aram Almendarez [phone] Allergies No Known Allergies Reason For Referral No Information Medications Medication SIG (Take, Route, Fr equency, Duration) Notes Start Date End Date Status Lisinopril 10 MG Oral for 90 A ctive Multivitamin - 1 tablet Orally Once a day for 30 day(s) Active Atenolol 50 MG Oral for 90 Act joao Social History Tobacco Use: Social History Observation Description Date Details (start date - stop date) Former Smoker NA - NA Tobacco Use/Smoking Question Answer Notes Patient is [...] Never (0 point) Points 4 Interpretation Positive Section Notes: Nonsmoker; occ. alcohol Problems Problem Type SNOMED Code ICD Code Onset Dates Problem Status W/U Status Risk Notes Problem Diverticular disease of colon (192917960) Diverticulosis of large intestine without perforation or abscess without bleeding (K57.30) Active confirmed Problem 980057035 Positive colorectal cancer screening using Cologuard test (R19.5) Active confirmed Plan Of Treatment Future Test Test Name Order Date COLONOSCOPY 12/06/2022 Insurance Providers Payer Name Payer Address Payer Phone Subscriber Number Group Number Insured Name Patient Relationship to Insured Coverage Start Date Coverage End Date MEDICARE OF [place] [address] [place] [id number] LUCRETIA SPAIN Self - patient is the insured [facility] [address] [place] [phone] [id number] LUCRETIA SPAIN Self - patient is the insured Medical (General) History Medical History History ICD Code Hypertension Denies AR,DM,CVA,Lung disease,renal dise ase Surgical History Surgery Date(Month/Year)
== END 2024-08-01 14:41 | disposition home or self-care (01) ==
LOC: HO.HOS 14:04
PROVIDERS: PCP Internal Medicine; Visit Provider Orthopaedic Surgery
DX: M16.11 Unilateral primary osteoarthritis, right hip (principal)
CPT/HCPCS: 99214

== ENCOUNTER → 2024-08-01 14:03 | Outpatient (BNVA) | payer MEDICARE, OTHER, SELFPAY | PROVIDERS: PCP Internal Medicine; Visit Provider Orthopaedic Surgery | DX: M16.11 Unilateral primary osteoarthritis, right hip (principal) | CPT/HCPCS: 99212 ==

== ENCOUNTER 2024-10-01 15:23 | Outpatient (AMB) | payer MEDICARE, OTHER, SELFPAY ==
--- NOTE | 2024-10-01 15:31 | MHC.PC.OV ---
Vital Signs 10/01/24 15:33 10/01/24 16:05 Height 5 ft 5 in Weight 142 lb 6 oz BMI 23.7 BP 170/98 H Blood Pressure Location Lt brachial Rt brachial Position Sitting Sitting Pulse 90 Pulse Source Pulse Oximeter Temp 96.9 F Temp Source Temporal Artery Scan Pulse Oximetry (%) 99 Oxygen Delivery Method Room Air Intake Visit Reasons: R YARI w/Dr. Childers 11/26/24 Intake Note: Patient is here for a Pre-op for R YARI scheduled with Dr Childers on 11/26/24. Plastics Supervisor Required: No Biomedical Equipment Specialist: Not Required per policy Accompanied by: Self / Same As Patient Allergies No Known Allergies Allergy (Verified 10/01/24 15:56) Medication List - Last Reconciled 10/01/24 by Sophy Bansal PA-C [3 in 1 commode DURATION : LIFETIME] atenolol 50 mg PO DAILY [Folding Front Wheeled walker Duration: 99 days] lisinopril 30 mg PO DAILY multivitamin (One-A-Day Essential tablet) 1 tab PO DAILY [Raised toilet seat duration - 99 days] Tobacco use date assessed: 10/01/24 Fall risk assessment: No Falls in past year Last assessed Fall Risk: 10/01/24 Dental Screening Dental Screen Date: 06/07/24 HPI R YARI w/Dr. Childers 11/26/24 HPI Details 74-year-old female with past medical history hypertension, hypercholesterolemia, osteopenia, impaired glucose tolerance last seen 05/2024 coming in for preoperative visit. Patient is scheduled to have right total hip with Dr. Childers 11/26/2024. Patient has had surgery in the past without complication. No history of MO, CVA or CHF. Patient does have anxiety in the office but does routinely check blood pressure at home. Pressures have been in the 112-130 systolic and 60-78 diastolic. hypertension: Blood pressure is elevated in the office today but home pressures have been well controlled on the atenolol and lisinopril. [facility] Medical History Breast cancer screening by mammogram Colon cancer screening Positive colorectal cancer screening using Cologuard test Nasal fracture Vitamin B12 deficiency Vitamin D deficiency Hypercholesterolemia Hypertension Surgical History History of bilateral cataract extraction History of surgery on right wrist Hx of wisdom tooth extraction Hx of colonoscopy Family History Mother Dementia Father Suicide Brother No problems noted. Sister No problems noted. Son No problems noted. Social History Housing: House Do you presently have visiting nurse or other home services: No Alcohol intake: current Alcohol intake frequency: a few times a month Alcohol type: wine Comment: 2-4 x amonth 1 -2 glasses of wine Patient Tobacco Use Status: Former Tobacco user Years Smoked: stopped 2000 e-Cigarette/Vaping Use: Never Used Second Hand Smoke Exposure: Yes service: No Current occupational status: retired Cognitive needs: No Hearing needs: No Vision needs: No Questionnaire Thrive Questionnaire Date Thrive assessed: 06/07/24 MONICA-7 AMB Questionnaire MONICA-7 Date MONICA - 7 assessed: 06/07/24 Source: Developed by Drs. Aram Palacio, Nataliya Lu, Henri Montanez and colleagues, with an educational freddie from [employer]. Review of Systems Const Denies body aches, Denies fatigue, Denies fever(s), Denies frequent falls, Denies headache(s) and Denies weakness Eyes Reports no additional complaints and Denies change in vision ENT Denies dysphagia, Denies dizziness, Denies facial pain, Denies headache(s), Denies nasal congestion and Denies odynophagia Card Denies chest pain, Denies syncope, Denies irregular heart rhythm, Denies leg edema, Denies lightheadedness and Denies dyspnea Resp Denies cough and Denies dyspnea GI Denies constipation, Denies dysphagia, Denies dyspepsia, Denies diarrhea, Denies nausea, Denies odynophagia and Denies vomiting Denies urinary frequency, Denies dysuria, Denies urinary hesitancy and Denies urinary urgency Musc Denies back pain and Denies myalgias Skin/Breast Reports system reviewed and no additional complaints, except as documented Neuro Denies dizziness, Denies syncope, Denies frequent falls, Denies headache(s) and Denies weakness Psych Reports no additional complaints Endo Denies fatigue Physical exam (Primary Care) Vital Signs: Last Vital Signs Temp 96.9 F 10/01/24 15:33 Pulse 90 10/01/24 15:33 BP 170/98 H 10/01/24 16:05 Pulse Ox 99 10/01/24 15:33 Oxygen Delivery Method Room Air 10/01/24 15:33 BMI result Body Mass Index 23.7 Tobacco/Smoking Status: Tobacco use Status Tobacco use date assessed 10/01/24 10/01/24 15:38 Patient Tobacco Use Status Former Tobacco user 10/01/24 15:38 e-Cigarette/Vaping Use Never Used 10/01/24 15:38 Thrive Assessment: Date of Thrive Assessment Date Thrive assessed 06/07/24 10/01/24 15:38 Const General: cooperative, healthy appearing, comfortable and no acute distress Orientation/consciousness: patient oriented x3 HENMT Head: Yes normocephalic Ears: hearing grossly normal bilaterally General nose exam: Normal external nose present Eyes General: appearance normal, both eyes and all related structures Conjunctivae: conjunctivae normal Neck Neck: Yes full ROM and Yes no lymphadenopathy Resp Effort & Inspection: normal respiratory effort Auscultation: clear to auscultation bilaterally, no crackles, no rales, no rhonchi and no wheezes Cardio Rate: regular rate Rhythm: regular rhythm Skin General skin exam: no rashes or lesions noted Neuro General: patient oriented x3 Gait exam (Neuro): Normal gait present Extrem General: Yes normal to inspection, Yes full ROM and No edema Psych Affect: normal affect Attitude: cooperative Insight: Good insight present (Psych) Judgement: Good judgement present (Psych) Coding Level of Care Code Est Pt Level 3 (78895) Diagnoses Pre-op examination Z01.818 Assessment & Plan Assessment & Plan (1) Pre-op examination: Code(s): Z01.818 - Encounter for other preprocedural examination Category: Medical Plan: Regarding preop clearance, the patient is at moderate risk for proposed surgery due to age and history of hypertension. Reviewed with the patient that no surgery is completely free of risk and that this examination is to assist the surgeon in reviewing informed consent. Blood pressure elevated today in the office however blood pressures at home have been within normal limits. I did discuss with patient if blood pressure is too elevated surgeon we will not perform surgery. I did discuss with the patient lorazepam may be provided prior to the surgery if surgeon is okay with this as she does have anxiety surrounding procedures. Ordered for blood work and EKG for further evaluation addendum will be added to this note once blood work has been reviewed. Plan This note was constructed using voice recognition software. While every effort has been made to ensure accuracy and work force advisor, still areas may have been included sometimes these areas may affect the content or meeting of the given symptoms. Total time spent caring for the patient today was 20 minutes. This includes time spent before the visit reviewing the chart, time spent during the visit, and time spent after the visit and documentation. Orders: Orders Comprehensive Met. Panel Today Z01.818 - Encounter for other preprocedural examination ECG 12 lead EKG Today Z01.818 - Encounter for other preprocedural examination Complete Blood Count Auto Diff Today Z01.818 - Encounter for other preprocedural examination
[2024-10-01 15:33] VITALS: PULSE 90; TEMP 36.1; O2SAT 99; BMI 23.7
[2024-10-01 16:05] VITALS: BP 170/98
== END 2024-10-01 16:37 | disposition home or self-care (01) ==
LOC: HO.HMCH 15:24
PROVIDERS: PCP Internal Medicine
DX: Z01.818 Encounter for other preprocedural examination (principal)

== ENCOUNTER → 2024-10-01 15:23 | Outpatient (BNVA) | payer MEDICARE, OTHER, SELFPAY | PROVIDERS: PCP Internal Medicine | DX: Z01.818 Encounter for other preprocedural examination (principal); Z87.891 Personal history of nicotine dependence; E78.00 Pure hypercholesterolemia, unspecified; I10 Essential (primary) hypertension | CPT/HCPCS: 99212 ==

== ENCOUNTER → 2024-10-04 10:34 | Outpatient (REF) | payer MEDICARE, OTHER, SELFPAY ==
--- NOTE | 2024-10-04 10:38 | ECG_ITS ---
Test Reason : pre op Blood Pressure : */* mmHG Vent. Rate : 68 BPM Atrial Rate : 68 BPM P-R Int : 166 ms QRS Dur : 82 ms QT Int : 394 ms P-R-T Axes : -15 29 28 degrees QTcB Int : 418 ms Normal sinus rhythm Normal ECG No previous ECGs available Referred By: Sophy Bansal Electronically Signed By: Norberto Carey
[2024-10-04 10:46] LABS: MANUAL DIFF FLAG NO
--- OUTSIDE RECORDS SUMMARY | 2024-10-04 10:59 | XMS_ITS | Patient Health Record ---
Author Organization [facility] Address [address] [place] [address] Care Team Providers Care Lead Generator Name Role Phone Thomas Tracey MD Primary Care Provider Aram Almendarez [phone] Allergies No Known Allergies Reason For Referral [...] Risk Notes Problem Diverticular disease of colon (035641312) Diverticulosis of large intestine without perforation or abscess without bleeding (K57.30) Active confirmed Problem 262472226 Positive colorectal cancer screening using Cologuard test (R19.5) Active confirmed Plan Of Treatment Future Test Test Name Order Date COLONOSCOPY 12/06/2022 Insurance Providers Payer Name Payer Address Payer Phone Subscriber Number Group Number Insured Name Patient Relationship to Insured Coverage Start Date Coverage End Date MED[place]ARE OF [place] [address] [place] [id number] LUCRETIA SPAIN Self - patient is the insured [facility] [address] [place] [phone] [id number] LUCRETIA SPAIN Self - patient is the insured Medical (General) History Medical History History ICD Code Hypertension Denies MT,DM,CVA,Lung disease,renal dise ase Surgical History Surgery Date(Month/Year)
[2024-10-04 12:24] LABS: Basophils Absolute Auto 0.1 X10*3/uL (0.0-0.2); Basophils Percent Auto 1.8 % (0-2); Eosinophils Absolute Auto 0.2 X10*3/uL (0.0-0.4); Eosinophils Percent Auto 3.8 % (0-4); Hematocrit 43.4 % (37.0-47.0); Hemoglobin 14.6 g/dl (12.0-16.0); Imm Gran Abs Auto 0.01 X10*3/uL (0.00-0.03); Imm Gran Pct Auto 0.2 % (0.0-0.4); Lymphocytes Absolute Auto 1.9 X10*3/uL (1.2-4.9); Lymphocytes Percent Auto 34.2 % (20-40); Mean Corpuscular HGB Conc 33.6 g/dl (31.0-35.0); Mean Corpuscular Hemoglobin 31.5 pg (27.0-33.0); Mean Corpuscular Volume 93.5 fL (80.0-98.0); Mean Platelet Volume 10.7 fL (9.4-12.3); Monocytes Absolute Auto 0.7 X10*3/uL (0.1-1.2); Monocytes Percent Auto 12.8 % (2-11); Neutrophils Absolute Auto 2.6 x10*3/uL (2.0-8.3); Neutrophils Percent Auto 47.2 % (45-73); Platelet Count 342 X10*3/uL (160-400); Red Blood Count 4.64 X10*6/uL (4.20-5.50); Red Cell Distribution Width 13.7 % (11.0-16.0); White Blood Count 5.5 X10*3/uL (4.8-10.8)
[2024-10-04 12:57] LABS: Alanine Aminotransferase 15 U/L (0-31); Albumin Level 4.3 g/dL (3.5-5.0); Alkaline Phosphatase 91 U/L (39-117); Anion Gap 14 (12-20); Aspartate Amino Transferase 22 U/L (5-31); Bilirubin Total 0.3 mg/dL (0.0-1.0); Blood Urea Nitrogen 19 mg/dL (9-16); Calcium 9.3 mg/dL (8.4-10.2); Carbon Dioxide 26 mmol/L (22-29); Chloride 100 mmol/L (96-108); Estimated Glomerular Filt Rate > 60; Glucose Random 115 mg/dL (60-115); Potassium 4.6 mmol/L (3.3-5.1); Sodium 135 mmol/L (135-145); Total Protein 7.2 g/dL (6.5-8.0)
== END ==
LOC: HO.CARD 10:34
PROVIDERS: PCP Internal Medicine
DX: Z01.818 Encounter for other preprocedural examination (principal)
CPT/HCPCS: 36415; 80053; 85025; 93005

== ENCOUNTER → 2024-10-04 10:38 | Outpatient (BNV) | payer MEDICARE, OTHER, SELFPAY | PROVIDERS: PCP Internal Medicine; Visit Provider Internal Medicine Cardiovascular Disease | DX: I34.1 Nonrheumatic mitral (valve) prolapse (principal); Z01.810 Encounter for preprocedural cardiovascular examination | CPT/HCPCS: 93010 ==

== ENCOUNTER → 2024-10-29 12:51 | Outpatient (BNVA) | payer MEDICARE, OTHER, SELFPAY | PROVIDERS: PCP Internal Medicine | DX: Z01.818 Encounter for other preprocedural examination (principal) ==

== ENCOUNTER 2024-11-21 13:59 | Outpatient (REF) | payer MEDICARE, OTHER, SELFPAY ==
--- NOTE | ~2024-11-21 | XR_ITS ---
EXAMINATION: XR HIP 2 OR MORE VIEWS RIGHT HISTORY: M25.551 - Pain in right hip COMPARISON: Comparison is made with the prior examination dated 07/04/2024. FINDINGS: A single AP view of the pelvis and two views of the right hip are submitted. Osseous mineralization is normal. There is no fracture or dislocation. Again seen is severe osteoarthritis with joint space narrowing, osteophyte formation, and subchondral cyst formation. There is calcification of the abdominal aorta. XR/XR hip RT min 2V IMPRESSION: Severe osteoarthritis. Electronically signed by: Aram Austin MD 11/21/2024 03:00 PM EDT
== END 2024-11-21 14:00 | disposition home or self-care (01) ==
LOC: HO.HOSX 13:59
PROVIDERS: PCP Internal Medicine; Visit Provider Physician Assistant
DX: Z01.818 Encounter for other preprocedural examination (principal); M16.11 Unilateral primary osteoarthritis, right hip; M25.551 Pain in right hip; Z79.899 Other long term (current) drug therapy
CPT/HCPCS: 73502; 86850; 86900; 86901; 99212

== ENCOUNTER 2024-11-21 13:59 | Outpatient (AMB) | payer MEDICARE, OTHER, SELFPAY ==
--- NOTE | 2024-11-20 21:27 | A.OFFVIS_ITS ---
Vital Signs 11/21/24 14:42 Height 5 ft 5 in Weight 143 lb BMI 23.8 Intake Visit Reasons: Pre-Op: R YARI w/NE 11/26/24 Intake Note: Josie is a 74 year old female who presents today for a preoperative right YARI on 11/26/[address] Childers. Pain management agreement reviewed and signed. Allergies No Known Allergies Allergy (Verified 11/21/24 14:42) Medication List - Last Reconciled 11/21/24 by Tereso Farah PA-C [3 in 1 commode DURATION : LIFETIME] atenolol 50 mg PO BEDTIME [Folding Front Wheeled walker Duration: 99 days] lisinopril 30 mg PO BEDTIME lorazepam 1-2 tabs 1-2 hours before procedure orally PRN; multivitamin (One-A-Day Essential tablet) 1 tab PO DAILY [Raised toilet seat duration - 99 days] HPI Comments Details: Ms Moreno presents to the office today for Orthopedic Pre op clearance. She is scheduled for Right YARI 11/26/[address] Childers. She has had several years of worsening hip pain which has limited her ability to walk, getting into and out of a chair or engaging in meaningful daily activities. She enjoys walking and being active. She is unable to take NSAIDs due to HTN. She has had no previous surgeries to the right hip. Patient lives at home with her spouse and she has a walker at home. Prior Medical clearances: -PCP Sophy Bansal 10/01/24: Regarding preop clearance, the patient is at moderate risk for proposed surgery due to age and history of hypertension. Reviewed with the patient that no surgery is completely free of risk and that this examination is to assist the surgeon in reviewing informed consent. Blood pressure elevated today in the office however blood pressures at home have been within normal limits. I did discuss with patient if blood pressure is too elevated surgeon we will not perform surgery. I did discuss with the patient lorazepam may be provided prior to the surgery if surgeon is okay with this as she does have anxiety surrounding procedures. No history of cardiopulmonary or vascular abnormalities. [facility] Medical History (Updated 10/28/24 @ 13:21 by Neema Jha RN) Osteoarthritis Anxiety Environmental and seasonal allergies Breast cancer screening by mammogram Colon cancer screening Positive colorectal cancer screening using Cologuard test Nasal fracture Vitamin B12 deficiency Vitamin D deficiency Hypercholesterolemia Hypertension Surgical History History of bilateral cataract extraction History of surgery on right wrist Hx of wisdom tooth extraction Hx of colonoscopy Family History Mother Dementia Father Suicide Brother No problems noted. Sister No problems noted. Son No problems noted. Social History (Updated 10/28/24 @ 13:13 by Neema Jha RN) Household Members: Spouse Housing: House Are you a primary pediatric care coordinator to a significant other at home: No Do you presently have visiting nurse or other home services: No 75 years or older and lives alone: No Alcohol intake: current Alcohol intake frequency: a few times a month Alcohol type: wine Comment: 2-4 x amonth 1 -2 glasses of wine Patient Tobacco Use Status: Former Tobacco user Tobacco use type: Cigarette Years Smoked: stopped 1999 e-Cigarette/Vaping Use: Never Used Second Hand Smoke Exposure: Yes service: No Current occupational status: retired Cognitive needs: No Hearing needs: No Vision needs: No Review of Systems Const All systems reviewed & are unremarkable except as noted in HPI and below Physical Exam Vital Signs: BMI result Body Mass Index 23.8 Const General: cooperative, healthy appearing, comfortable and no acute distress Orientation/consciousness: patient oriented x3 HEENT Head: Yes normal to inspection and Yes atraumatic Ears: hearing grossly normal bilaterally Eyes General: appearance normal, both eyes and all related structures Neck Neck: Yes normal visual inspection and Yes no lymphadenopathy Resp Effort & Inspection: normal respiratory effort and able to speak in complete sentences Cardio Peripheral pulses: Peripheral pulses 2+ throughout Neuro General: patient oriented x3 Extrem Other: Right hip skin intact there are no open wounds or abrasions. She has positive impingement test and walks with a Trendelenburg gait. No pitting edema or venous stasis. Neurovascularly intact. Psych Appearance: well kempt Results Reviewed Results Reviewed: X-rays of the right hip obtained in the office today and reviewed by me for surgical planning. Assessment & Plan Assessment & Plan (1) Osteoarthritis of right hip: Code(s): M16.11 - Unilateral primary osteoarthritis, right hip Category: Medical Plan: Ms Moreno has exhausted all conservative measures consisting of lifestyle modifications, physical therapy, analgesics, corticosteroid injections and use of assisted devices and continues to have significant limitations in daily activities along with decreased quality of life. Given the patient's desire to improve their quality of life, surgical intervention consisting of joint replacement surgery is recommended at this time.? We discussed the procedure in detail today; which includes pre op preparation with labs and reviewing patients medication regimen prior to surgery. Patient will take her atenolol and lisinopril the night before surgery as usual. She was sent to the hospital to obtain a CBC BMP and type and screen prior to surgery. I discussed at length the post op course which includes physical therapy services in the hospital along with the discharge routine and the patients plan upon discharge. Patient will discharge home with VNA services. She does have her walker at home. I explained to the patient, once they are DC home, they will receive VNA services which will include PT 2-3x per week. We also discussed their choice for outpatient PT once they are discharged from home PT. Patient would like to go to an [facility] core facility. Order was placed and she will contact them to make an appointment to begin after her 1st postop appointment. Post op DVT ppx was also discussed and the considering the patient does not have a history of smoking, cancer or worked DVT/PE she will be placed on aspirin 325 mg p.o. b.i.d. for DVT prophylaxis. I reviewed with the patient their post op pain medication regimen along with the detailed wean program. The patient did express understanding of this and agreed to the narcotic policy. Lastly, I discussed with the patient the risks to the procedure. Risks including but not limited to infection, injury to surrounding nerves, tissue , bone, small and large vessels, stiffness, aseptic loosening, fracture, dislocation, amputation, DVT/PE along with intraoperative complications including but not limited to . The patient does express understanding, all questions were answered and the patient would like to proceed? withwith right total hip arthroplasty with [facility]. Consents were signed and dated while in the office today. ? Orders: Orders XR hip RT min 2V Today M25.551 - Pain in right hip Complete Blood Count Auto Diff Today Z01.818 - Encounter for other preprocedural examination Type and Screen Today Z01.818 - Encounter for other preprocedural examination Basic Metabolic Panel Today Z01.818 - Encounter for other preprocedural examination Coding Level of Care Code Est Pt Level 4 (21047) Complex EM visit Add On G2211 Diagnoses Osteoarthritis of right hip M16.11
--- OUTSIDE RECORDS SUMMARY | 2024-11-21 14:11 | XMS_ITS | Patient Health Record ---
Author Organization [facility] Address [address] [place] [address] Care Team Providers Care Tape Control Skin Or Spar Mill Operator Name Role Phone Thomas Tracey MD Primary Care Provider Aram Almendarez [phone] Allergies No Known Allergies Reason For Referral [...] Risk Notes Problem Diverticular disease of colon (035365625) Diverticulosis of large intestine without perforation or abscess without bleeding (K57.30) Active confirmed Problem [id number] Positive colorectal cancer screening using Cologuard test (R19.5) Active confirmed Plan Of Treatment Future Test Test Name Order Date COLONOSCOPY 12/06/2022 Insurance Providers Payer Name Payer Address Payer Phone Subscriber Number Group Number Insured Name Patient Relationship to Insured Coverage Start Date Coverage End Date MEDICARE OF [place] [address] [place]UN [id number] LUCRETIA SPAIN Self - patient is the insured [facility] [address] [place] [id number] LUCRETIA SPAIN Self - patient is the insured Medical (General) History Medical History History ICD Code Hypertension Denies OR,DM,CVA,Lung disease,renal dise ase Surgical History Surgery Date(Month/Year)
--- OUTSIDE RECORDS SUMMARY | 2024-11-21 14:11 | XMS_ITS | Encounter Summary ---
Author Organization [facility] Address [address] [place] [address] Phone Care Team Providers Care Colon Therapist Name Role Phone Thomas Tracey MD Primary Care Provider [phone] Encounter Details Date Type Department Care Team (Late st Contact Info) Description 03/29/2017 Ancillary Orders Virtual Department [address] [place] [address] Thomas Tracey MD [address] [place] [id number] Breast screening Social History Tobacco Use Types Packs/Day Years Used Date Smoking Tobacco: Never Assessed Comments Unknown Sex and Gender Information Value Date Recorded Sex Assigned at Not on file Legal Sex Female 10:02 PM EDT Gender Identity Not on file Sexual Orientation Not on file documented as of this encounter Plan of Treatment Not on file documented as of this encounter Results * BI MAMMOGRAM SCREENING WITH TOMOSYNTHESIS WITH CAD (BILATERAL) (04/27/2017 12:32 PM EST) Anatomical Region Laterality Modality Breast Left, Breast Right, Breast Bilateral Bila teral Mammography 04/27/2017 1:32 PM EST Impressions 04/27/2017 1:34 PM EST No mammographic evidence of malignancy. BI-RADS CATEGORY: 1 - Negative. DENSITY: The breast tissue is heterogeneously dense, an appearance which lowers the sensitivity of mammography. POS - [facility]AMA Narrative 04/27/2017 1:34 PM EST Standard digital full-field 2-D C view and two-plane tomographic imaging was performed and compared with multiple prior studies, most recently 07/11/2015, with utilization of computer-aided detection. The breast parenchyma is heterogeneously dense, somewhat limiting mammographic sensitivity. The stromal markings are essentially unchanged in overall appearance and distribution. No dominant spiculated mass, suspicious clustered microcalcifications, or focal zone of pathologic skin thickening or retraction are noted to have arisen in the interim. Procedure Note Giuliano Golden MD - 04/27/2017 Standard digital full-field 2-D C view and two-plane tomographic imagingwas performed and compared with multiple prior studies, most ipsvfktx97/26/2016, with utilization of computer-aided detection. The breast parenchyma is heterogeneously dense, somewhat limitingmammographic sensitivity. The stromal markings are essentially unchangedin overall appearance and distribution. No dominant spiculated mass,suspicious clustered microcalcifications, or focal zone of pathologic skinthickening or retraction are noted to have arisen in the interim. IMPRESSION: No mammographic evidence of malignancy. BI-RADS CATEGORY: 1 - Negative. DENSITY: The breast tissue is heterogeneously dense, an appearance whichlowers the sensitivity of mammography. POS - CD[facility]AMA Thomas Tracey MD IMG MG EXAMS Final Result documented in this encounter Visit Diagnoses Diagnosis Breast screening Breast screening, unspecified Breast screening Breast screening, unspecified documented in this encounter Care Teams Colon Therapist Relationship Specialty Start Date End Date Thomas Tracey MD [address] [place] [address] Drive [address] [place] [id number] PCP - General Internal Medicine 03/29/17 documented as of this encounter Additional Source Comments The information contained in this document represents components of the legal health record. It is not the complete legal health record.[facility]
[2024-11-21 14:42] VITALS: BMI 23.8
== END 2024-11-21 15:23 | disposition home or self-care (01) ==
LOC: HO.HOS 13:59
PROVIDERS: PCP Internal Medicine; Visit Provider Physician Assistant
DX: M16.11 Unilateral primary osteoarthritis, right hip (principal)
CPT/HCPCS: 99024

== ENCOUNTER → 2024-11-21 14:10 | Outpatient (BNV) | payer MEDICARE, OTHER, SELFPAY | PROVIDERS: PCP Internal Medicine; Visit Provider Radiology Diagnostic Radiology | DX: M16.11 Unilateral primary osteoarthritis, right hip (principal) | CPT/HCPCS: 73502 ==

== ENCOUNTER 2024-11-26 06:59 | Day surgery (SDC) | payer MEDICARE, OTHER, SELFPAY ==
--- OUTSIDE RECORDS SUMMARY | 2024-10-01 16:30 | XMS_ITS | Patient Health Record ---
Author Organization [facility] Address [address] [place] [address] Care Team Providers Care Transition Nurse Name Role Phone Thomas Tracey MD Primary Care Provider Aram Almendarez [phone] Allergies No Known Allergies Reason For Referral [...] Problem Status W/U Status Risk Notes Problem Diverticulosis o f large intestine without perforation or abscess without bleeding (K57.30) Active confirmed Problem [id number] Positive colorec norma cancer screening using Cologuard test (R19.5) Active confirmed Plan Of Treatment Future Test Test Name Order Date COLONOSCOPY 12/06/2022 Insurance Providers Payer Name Payer Address Payer Phone Subscriber Number Group Number Insured Name Patient Relationship to Insured Coverage Start Date Coverage End Date MEDICARE OF [place] [address] [place] [id number] LUCRETIA SPAIN Self - patient is the insured [facility] [address] [place] [phone] [id number] LUCRETIA SPAIN Self - patient is the insured Medical (General) History Medical History History ICD Code Hypertension Denies CT,DM,CVA,Lung disease,renal dise ase Surgical History Surgery Date(Month/Year)
--- NOTE | 2024-10-28 11:07 | HO.ANESPROP2 ---
Documented by User: Vero Villafuerte NP 11/25/24 08:59 HPI - Anesthesia Eval Consult details Narrative: 74yo F for Right Hip Total Replacement, 11/26/24 Medically optimized per PCP No recent illness No CP/SOB with very limited activity r/t pain HTN: BP up at PAT. Checks BP at home with SBP <130. Will bring log DOS PMFSH Past Medical History Medical History Osteoarthritis Anxiety Environmental and seasonal allergies Breast cancer screening by mammogram Colon cancer screening Positive colorectal cancer screening using Cologuard test Nasal fracture Vitamin B12 deficiency Vitamin D deficiency Hypercholesterolemia Hypertension Family History Family History Mother Dementia Father Suicide Brother No problems noted. Sister No problems noted. Son No problems noted. Surgical History Surgical History History of bilateral cataract extraction History of surgery on right wrist Hx of wisdom tooth extraction Hx of colonoscopy Social History Social History Household Members: Spouse Housing: House Are you a primary care tech to a significant other at home: No Do you presently have visiting nurse or other home services: No Alcohol intake: current Alcohol intake frequency: a few times a month Alcohol type: wine Comment: 2-4 x amonth 1 -2 glasses of wine Patient Tobacco Use Status: Former Tobacco user Tobacco use type: Cigarette Years Smoked: stopped 1999 e-Cigarette/Vaping Use: Never Used Second Hand Smoke Exposure: Yes Use of substances other than those prescribed or required for medical reasons: No Have you been hit, kicked, punched, or otherwise hurt by someone within the past year? If so, by whom?: No Are you DNR?: No Advance Directives: No Advance Directives Information Provided: Yes Advance Directives on File: No Poor oral hygiene: No service: No Current occupational status: retired Cognitive needs: No Hearing needs: No Vision needs: No Meds Allergies Allergy/AdvReac Type Severity Reaction Status Date / Time No Known Allergies Allergy Verified 11/26/24 07:27 Home Medications ?Medication ?Instructions ?Recorded ?Confirmed ?Last Taken ?Type multivitamin (One-A-Day Essential 1 tab PO DAILY 09/18/20 11/21/24 Unknown History tablet) atenolol 50 mg tablet 50 mg PO BEDTIME 10/28/24 11/21/24 Unknown History lisinopril 30 mg tablet 30 mg PO BEDTIME 10/28/24 11/21/24 Unknown History Exam Height,Weight and Vital Signs: Vital Signs Pulse Rate 89 10/28/24 12:59 Respiratory Rate 16 10/28/24 12:59 Blood Pressure 197/91 H 10/28/24 12:59 Pulse Oximetry 98 10/28/24 12:59 Oxygen Delivery Method Room Air 10/28/24 12:59 Pertinent Lab Results Pertinent Lab Results: Lab Results 10/28/24 11/21/24 Range/Units 13:30 15:25 WBC 6.4 (4.8-10.8) X10*3/uL RBC 4.68 (4.20-5.50) X10*6/uL Hgb 14.8 (12.0-16.0) g/dl Hct 42.3 (37.0-47.0) % MCV 90.4 (80.0-98.0) fL MCH 31.6 (27.0-33.0) pg MCHC 35.0 (31.0-35.0) g/dl RDW 13.9 (11.0-16.0) % Plt Count 313 (160-400) X10*3/uL MPV 10.9 (9.4-12.3) fL Immature Gran % (Auto) 0.2 (0.0-0.4) % Neut % (Auto) 54.7 (45-73) % Lymph % (Auto) 26.7 (20-40) % Wright % (Auto) 13.4 H (2-11) % Eos % (Auto) 3.6 (0-4) % Baso % (Auto) 1.4 (0-2) % Lymph # (Auto) 1.7 (1.2-4.9) X10*3/uL Wright # (Auto) 0.9 (0.1-1.2) X10*3/uL Eos # (Auto) 0.2 (0.0-0.4) X10*3/uL Baso # (Auto) 0.1 (0.0-0.2) X10*3/uL Abs Immat Gran (auto) 0.01 (0.00-0.03) X10*3/uL Absolute Neuts (auto) 3.5 (2.0-8.3) x10*3/uL Absolute Nucleated RBC 0.000 (0.0-0.012) X10*3/uL Nucleated RBC % (auto) 0.0 (0.0-0.2) /100WBC Sodium 138 (135-145) mmol/L Potassium 3.9 (3.3-5.1) mmol/L Chloride 103 (96-108) mmol/L Carbon Dioxide 23 (22-29) mmol/L Anion Gap 16 (12-20) BUN 20 H (9-16) mg/dL Creatinine 0.60 (0.5-1.4) mg/dL Estim Creat Clear Calc 74.0 Estimated GFR > 60 Random Glucose 107 (60-115) mg/dL Calcium 9.4 (8.4-10.2) mg/dL Nasal Screen MRSA (PCR) NEGATIVE (Negative) Nasal S. aureus Screen POSITIVE A (Negative) Nasal MRSA/S.aureus Interp SEE NOTE Laboratory Tests 11/21/24 16:35 Blood Type O Positive Antibody Screen NEGATIVE Narrative Narrative: EKG 09/2024 Vent. Rate : 68 BPM Atrial Rate : 68 BPM P-R Int : 166 ms QRS Dur : 82 ms QT Int : 394 ms P-R-T Axes : -15 29 28 degrees QTcB Int : 418 ms Normal sinus rhythm Normal ECG No previous ECGs available Airway Mallampati Class: II TM Dist: >3cm Neck ROM: Full Loose/Missing/Broken Teeth: No (Crowned molars) Heart: RRR Lungs: CTAB Assessment and Plan Assessment Anesthesia Assessment: Anesthesia Plan Discussed and PAT Visit Documented by User: Gricel Rae MD 11/26/24 09:24 PMFSH Past Medical History Medical History Osteoarthritis Anxiety Environmental and seasonal allergies Breast cancer screening by mammogram Colon cancer screening Positive colorectal cancer screening using Cologuard test Nasal fracture Vitamin B12 deficiency Vitamin D deficiency Hypercholesterolemia Hypertension Family History Family History Mother Dementia Father Suicide Brother No problems noted. Sister No problems noted. Son No problems noted. Surgical History Surgical History History of bilateral cataract extraction History of surgery on right wrist Hx of wisdom tooth extraction Hx of colonoscopy Social History Social History Household Members: Spouse Housing: House Are you a primary care tech to a significant other at home: No Do you presently have visiting nurse or other home services: No Alcohol intake: current Alcohol intake frequency: a few times a month Alcohol type: wine Comment: 2-4 x amonth 1 -2 glasses of wine Patient Tobacco Use Status: Former Tobacco user Tobacco use type: Cigarette Years Smoked: stopped 1999 e-Cigarette/Vaping Use: Never Used Second Hand Smoke Exposure: Yes Use of substances other than those prescribed or required for medical reasons: No Have you been hit, kicked, punched, or otherwise hurt by someone within the past year? If so, by whom?: No Are you DNR?: No Advance Directives: No Advance Directives Information Provided: Yes Advance Directives on File: No Poor oral hygiene: No service: No Current occupational status: retired Cognitive needs: No Hearing needs: No Vision needs: No Meds Allergies Allergy/AdvReac Type Severity Reaction Status Date / Time No Known Allergies Allergy Verified 11/26/24 07:27 Home Medications ?Medication ?Instructions ?Recorded ?Confirmed ?Last Taken ?Type multivitamin (One-A-Day Essential 1 tab PO DAILY 09/18/20 11/21/24 Unknown History tablet) atenolol 50 mg tablet 50 mg PO BEDTIME 10/28/24 11/21/24 Unknown History lisinopril 30 mg tablet 30 mg PO BEDTIME 10/28/24 11/21/24 Unknown History Assessment and Plan Assessment Anesthesia Assessment: Chart Reviewed Final Anesthetic Review NPO: Yes ASA Class: II Final Preanesthetic Review: No Changes in Pt Med Stat, Meds/Allgs Chart Reviewed, Consent Obtained/Reviewed and Anes Risks/Benef Reviewed Patient Risk: Low Procedure Risk: Intermediate Anesthetic Plan Anesthetic Plan: GA Disposition: Standard PACU Documented by User: Amy Zamorano NP [facility] Active Problems Active Problems: All Active Problems Osteoarthritis of right hip (Acute) Pre-op examination (Acute) Trochanteric bursitis of right hip (Acute) Status post open reduction and internal fixation (ORIF) of fracture (Acute) Stiffness of hand joint (Acute) Closed fracture of right distal radius (Acute) Impaired fasting glucose (Acute) Annual physical exam (Acute) Osteopenia (Acute) Annual physical exam (Acute) Hypercholesterolemia (Acute) Hypertension (Acute) Past Medical History Medical History Osteoarthritis Anxiety Environmental and seasonal allergies Breast cancer screening by mammogram Colon cancer screening Positive colorectal cancer screening using Cologuard test Nasal fracture Vitamin B12 deficiency Vitamin D deficiency Hypercholesterolemia Hypertension Family History Family History Mother Dementia Father Suicide Brother No problems noted. Sister No problems noted. Son No problems noted. Family history of problems with anesthesia: No Surgical History Surgical History History of bilateral cataract extraction History of surgery on right wrist Hx of wisdom tooth extraction Hx of colonoscopy History of Problems with Anesthesia: No Social History Social History Household Members: Spouse Housing: House Are you a primary care tech to a significant other at home: No Do you presently have visiting nurse or other home services: No Alcohol intake: current Alcohol intake frequency: a few times a month Alcohol type: wine Comment: 2-4 x amonth 1 -2 glasses of wine Patient Tobacco Use Status: Former Tobacco user Tobacco use type: Cigarette Years Smoked: stopped 1999 e-Cigarette/Vaping Use: Never Used Second Hand Smoke Exposure: Yes Use of substances other than those prescribed or required for medical reasons: No Have you been hit, kicked, punched, or otherwise hurt by someone within the past year? If so, by whom?: No Are you DNR?: No Advance Directives: No Advance Directives Information Provided: Yes Advance Directives on File: No Poor oral hygiene: No service: No Current occupational status: retired Cognitive needs: No Hearing needs: No Vision needs: No Meds Allergies Allergy/AdvReac Type Severity Reaction Status Date / Time No Known Allergies Allergy Verified 11/26/24 07:27 Home Medications ?Medication ?Instructions ?Recorded ?Confirmed ?Last Taken ?Type multivitamin (One-A-Day Essential 1 tab PO DAILY 09/18/20 11/21/24 Unknown History tablet) atenolol 50 mg tablet 50 mg PO BEDTIME 10/28/24 11/21/24 Unknown History lisinopril 30 mg tablet 30 mg PO BEDTIME 10/28/24 11/21/24 Unknown History Assessment and Plan Final Anesthetic Review Family History of Problems with Anesthesia: No History of Problems with Anesthesia: No
[2024-10-28 12:59] VITALS: BP 197/91; PULSE 89; RESP 16; O2SAT 98
[2024-10-28 15:50] LABS: MRSA Nasal PCR NEGATIVE (Negative); SA Nasal PCR POSITIVE (Negative)
[2024-11-21 15:26] LABS: MANUAL DIFF FLAG NO
[2024-11-21 16:05] LABS: Hematocrit 42.3 % (37.0-47.0); Hemoglobin 14.8 g/dl (12.0-16.0); Imm Gran Abs Auto 0.01 X10*3/uL (0.00-0.03); Imm Gran Pct Auto 0.2 % (0.0-0.4); Lymphocytes Absolute Auto 1.7 X10*3/uL (1.2-4.9); Mean Corpuscular HGB Conc 35.0 g/dl (31.0-35.0); Mean Corpuscular Hemoglobin 31.6 pg (27.0-33.0); Mean Corpuscular Volume 90.4 fL (80.0-98.0); NRBC Abs Auto 0.000 X10*3/uL (0.0-0.012); NRBC Pct Auto 0.0 /100WBC (0.0-0.2); Platelet Count 313 X10*3/uL (160-400); Red Blood Count 4.68 X10*6/uL (4.20-5.50); White Blood Count 6.4 X10*3/uL (4.8-10.8)
[2024-11-21 16:28] LABS: Anion Gap 16 (12-20); Blood Urea Nitrogen 20 mg/dL (9-16); Calcium 9.4 mg/dL (8.4-10.2); Carbon Dioxide 23 mmol/L (22-29); Chloride 103 mmol/L (96-108); Creatinine Clr Calc Pharmacy 74.0; Estimated Glomerular Filt Rate > 60; Potassium 3.9 mmol/L (3.3-5.1); Sodium 138 mmol/L (135-145)
[2024-11-26] VITALS (16 sets, daily range): BP systolic 140–163; BP diastolic 60–80; PULSE 59–82; RESP 11–20; TEMP 36.1–36.7; O2SAT 94–99; BMI 23.4; BMI 23.1
--- NOTE | ~2024-11-26 | XR_ITS ---
EXAMINATION: XR PELVIS 1-2 VIEWS HISTORY: RT YARI COMPARISON: Comparison is made with the prior examination dated 725. FINDINGS: A single AP view of the pelvis is submitted. The patient is status post right total hip arthroplasty. The orthopedic elements are in anatomic alignment. There is no radiographic evidence of loosening. There is no fracture or dislocation. There is mild to moderate narrowing of the left hip. XR/XR pelvis 1-2V IMPRESSION: Status post right total hip arthroplasty. Electronically signed by: Aram Austin MD 11/26/2024 01:00 PM EDT
[2024-11-26] MEDS: Lactated Ringers 1,000 ML 100 ML IVCONT ×2 (07:54→15:34)
[2024-11-26] MEDS: oxyCODONE HCl ER 10 MG TAB.ER.12H PO ×2 (09:45→19:39)
--- NOTE | 2024-11-26 09:47 | MHC.SHP ---
Pre-Procedural Eval Section A - 24 Hr Update-Section A only Date of Service: 11/26/24 The patient is an INPATIENT: No Changes since office visit: No Cold of Flu in the past 2 weeks, No New Medical Problems, No Changes in Medication and No Patient answered all questions The patient has been examined within 24 hours of the surgical procedure. The History & Physical has been completed within 30 days and I have reviewed it.: Yes Section B - Complete if H&P > 30 days Chief Complaint: Unilateral primary osteoarthritis, right hip Allergies: Allergies Allergy/AdvReac Type Severity Reaction Status Date / Time No Known Allergies Allergy Verified 11/26/24 07:27 Plan I have reviewed the history and physical and performed a pertinent physical examination on my patient. No changes have occurred unless specified. Time Spent With Patient Time: Total time managing care of this patient today ____ minutes.
--- NOTE | 2024-11-26 12:13 | P.BOP_ITS ---
Brief Operative Note Date of Service: 11/26/24 Pre-op diagnosis: Right hip OA Post-op diagnosis: same Procedure: Right YARI Implants: Karson Trident2 48/ lip liner; Accoalde2 #5 [id number] with -4 32 ceramic Surgeon: Yfn Childers MD Anesthesia: GETA and local Was an Senior Database Engineer used for this Procedure?: Yes Senior Database Engineer: Tereso Farah Estimated blood loss (mL): 175 IV fluids (mL): 850 Pathology: other Condition: stable Disposition: PACU
[2024-11-26] MEDS: oxyCODONE HCl Immed Release 5 MG TABLET PO (17:25)
--- NOTE | 2024-11-26 20:15 | HO.PM.IMCN ---
History of Present Illness Data of Consult Service Date: 11/26/24 Requesting physician: Yfn Childers Primary Care Provider: Thomas Tracey MD [facility] Reason for consult: med management Patient is a 74-year-old female with a past history significant for hypertension, hyperlipidemia, osteopenia, anxiety, no s/p right total hip today. Patient that her pain is well-controlled. She denies any chest pain, shortness of breath, nausea or vomiting. She has been able to urinate and denies any numbness or tingling in the lower extremities. She has no acute concerns currently. Medical history and medications were reviewed with the patient. Review of Systems Review of Systems: Yes all other systems are reviewed and are negative [facility] Medical History Osteoarthritis Anxiety Environmental and seasonal allergies Breast cancer screening by mammogram Colon cancer screening Positive colorectal cancer screening using Cologuard test Nasal fracture Vitamin B12 deficiency Vitamin D deficiency Hypercholesterolemia Hypertension Family History Mother Dementia Father Suicide Brother No problems noted. Sister No problems noted. Son No problems noted. Surgical History History of bilateral cataract extraction History of surgery on right wrist Hx of wisdom tooth extraction Hx of colonoscopy Social History Household Members: Spouse Housing: House Are you a primary day care assistant to a significant other at home: No Do you presently have visiting nurse or other home services: No Alcohol intake: current Alcohol intake frequency: a few times a month Alcohol type: wine Patient Tobacco Use Status: Former Tobacco user Tobacco use type: Cigarette Years Smoked: stopped 1999 e-Cigarette/Vaping Use: Never Used Second Hand Smoke Exposure: Yes Use of substances other than those prescribed or required for medical reasons: No Currently Displaying Signs/Symptoms of Drug Intoxication Withdrawal: No Have you been hit, kicked, punched, or otherwise hurt by someone within the past year? If so, by whom?: No Do you feel safe in your current relationship?: Yes Is there a partner from a previous relationship who is making you feel unsafe now?: No Are you made to feel afraid or neglected: No Are you DNR?: No Advance Directives: No Advance Directives Information Provided: Yes Advance Directives on File: No Do you have a plan to hurt others: No Plan Recently lost weight without trying: No Eating poorly because of decreased appetite: No Nutrition Risks: No Nutritional Risk Patient : No : No Poor oral hygiene: No service: No Current occupational status: retired Cognitive needs: No Hearing needs: No Vision needs: No Narrative: No smoking, consumes wine 2-3 days per week, no drug use Meds Allergies Allergy/AdvReac Type Severity Reaction Status Date / Time No Known Allergies Allergy Verified 11/26/24 07:27 Active Medications: Current Medications Acetaminophen (Acetaminophen 325 Mg Tablet) 650 mg PO Q6H PRN PRN Reason: Pain, Mild 1-3,fever,headache Aspirin (Aspirin 325 Mg Tablet) 325 mg PO BID [facility] Atenolol (Atenolol 50 Mg Tablet) 50 mg PO BEDTIME [facility]; Protocol Last Admin: 11/26/24 19:38 Dose: 50 mg Celecoxib (Celecoxib 200 Mg Capsule) 200 mg PO BID [facility] Last Admin: 11/26/24 19:39 Dose: 200 mg Docusate Sodium (Docusate Sodium 100 Mg Capsule) 100 mg PO BID [facility] Last Admin: 11/26/24 19:38 Dose: 100 mg Hydromorphone HCl (Hydromorphone Hcl 0.5 Mg/0.5 Ml Syringe) 0.25 mg IVPUSH Q4H PRN; Protocol PRN Reason: Pain, Severe (Pain Scale 7-10) Last Admin: 11/26/24 16:42 Dose: 0.25 mg Lactated Ringer's (Lr) 1,000 mls @ 100 mls/hr IVCONT .Q10H [facility] Stop: 11/27/24 08:00 Last Admin: 11/26/24 15:34 Dose: 100 mls/hr Ondansetron HCl (Ondansetron Hcl 4 Mg/2 Ml Vial) 4 mg IVPUSH Q8H PRN PRN Reason: Nausea and Vomiting Oxycodone HCl (Oxycodone Hcl Immed Release 5 Mg Tablet) 5 mg PO Q4H PRN PRN Reason: Pain, Moderate(Pain Scale 4-6) Last Admin: 11/26/24 17:25 Dose: 5 mg Oxycodone HCl (Oxycodone Hcl Er 10 Mg Tab.Er.12h) 10 mg PO BID [facility] Last Admin: 11/26/24 19:39 Dose: 10 mg Sodium Chloride (0.9 % Sodium Chloride Flush 3 Ml Syringe) 3 ml IVFLUSH QSHIFT [facility] Last Admin: 11/26/24 16:06 Dose: Not Given Home Medications ?Medication ?Instructions ?Recorded ?Confirmed ?Last Taken ?Type multivitamin (One-A-Day Essential 1 tab PO DAILY 09/18/20 11/21/24 Unknown History tablet) atenolol 50 mg tablet 50 mg PO BEDTIME 10/28/24 11/21/24 Unknown History lisinopril 30 mg tablet 30 mg PO BEDTIME 10/28/24 11/21/24 Unknown History Physical Exam Vital Signs and Narrative: Vital Signs: Last Vital Signs Temp 97.7 F 11/26/24 19:26 Pulse 77 11/26/24 19:26 Resp 18 11/26/24 19:26 BP 144/64 H 11/26/24 19:26 Pulse Ox 95 11/26/24 19:26 O2 Del Method Room Air 11/26/24 19:26 O2 Flow Rate 2 11/26/24 14:55 BMI result Body Mass Index 23.4 General: AOx3, no acute distress Resp: CTA bilaterally CVS: S1, S2, RRR GI: +BS, NT, no distention Skin: Warm, dry Neuro: Cranial nerves II-XII grossly intact bilaterally. Motor grossly intact bilaterally. RLE sensation and motor intact. Extremities: No pitting edema Psych: Appropriate affect Results Labs 11/21/24 15:25 11/21/24 15:25 Labs: Laboratory Results - last 24 hr 11/21/24 16:35 Blood Type O Positive Antibody Screen NEGATIVE Imaging Radiologist's Impressions: Impressions Pelvis X-Ray 11/26/24 11:40 IMPRESSION: Status post right total hip arthroplasty. Electronically signed by: Aram Austin MD 11/26/2024 01:00 PM EDT Assessment and Plan (1) S/P total right hip arthroplasty: Status: Acute Plan Patient is a 74-year-old female with a past history significant for hypertension, hyperlipidemia, osteopenia, anxiety, now s/p right total hip today. s/p R YARI - POD 0 - plan per surgery - pain well managed HTN - atenolol and lisinopril - blood pressures ok, resume home meds tomorrow HLD - no home meds anxiety - ativan PRN osteopenia - multivitamin Thank you for allowing me to participate in the pt's care. Signing off. Please contact the medical team if any questions or concerns.
[2024-11-27] MEDS: oxyCODONE HCl Immed Release 5 MG TABLET PO ×2 (00:22→06:59)
[2024-11-27] MEDS: Lactated Ringers 1,000 ML 100 ML IVCONT (00:23)
[2024-11-27 04:00] VITALS: BP 150/69; PULSE 67; RESP 16; TEMP 36.8; O2SAT 98
[2024-11-27 06:23] LABS: MANUAL DIFF FLAG NO
[2024-11-27 06:31] LABS: Hematocrit 34.1 % (37.0-47.0); Hemoglobin 11.8 g/dl (12.0-16.0); Imm Gran Abs Auto 0.03 X10*3/uL (0.00-0.03); Imm Gran Pct Auto 0.3 % (0.0-0.4); Lymphocytes Absolute Auto 1.3 X10*3/uL (1.2-4.9); Mean Corpuscular HGB Conc 34.6 g/dl (31.0-35.0); Mean Corpuscular Hemoglobin 31.7 pg (27.0-33.0); Mean Corpuscular Volume 91.7 fL (80.0-98.0); NRBC Abs Auto 0.000 X10*3/uL (0.0-0.012); NRBC Pct Auto 0.0 /100WBC (0.0-0.2); Platelet Count 246 X10*3/uL (160-400); Red Blood Count 3.72 X10*6/uL (4.20-5.50); White Blood Count 10.3 X10*3/uL (4.8-10.8)
[2024-11-27 06:43] LABS: Anion Gap 11 (12-20); Blood Urea Nitrogen 14 mg/dL (9-16); Calcium 8.3 mg/dL (8.4-10.2); Carbon Dioxide 26 mmol/L (22-29); Chloride 100 mmol/L (96-108); Creatinine Clr Calc Pharmacy 92.5; Estimated Glomerular Filt Rate > 60; Potassium 4.1 mmol/L (3.3-5.1); Sodium 133 mmol/L (135-145)
[2024-11-27] MEDS: oxyCODONE HCl ER 10 MG TAB.ER.12H PO (06:59)
--- NOTE | 2024-11-27 07:25 | PM.DS ---
DS: Providers Provider Date of Service: 11/27/24 Date of discharge: 11/27/24 Primary care physician: Thomas Tracey MD Consults: 11/26/24 15:26 Consult to Case Management Routine Comment: Consult to Case Management Routine Comment: s/p rt ila home with vna Consult to Hospitalist Routine Comment: Consulting Provider: [facility] Reason For Exam: Med mgmnt DS: Diagnosis Discharge Diagnosis (1) S/P total right hip arthroplasty: Status: Acute DS: Summary Hospital Course Hospital Course: The patient underwent a successful right total hip arthroplasty, they were transferred to PACU and then to the floor to recover. During their stay, their vitals were stable, afebrile at 98.2. Labs were unremarkable, H/H 11.8/34.1. POD 1 they were started on Aspirin 325mg po bid for DVT ppx, they also received Physical Therapy services twice a day. Prior to discharge, their dressing was clean dry and intact, and the plan was to be discharged home with VNA services. Time Attestation Discharge Coordination Time (in mins): 30 Quality: Safe Use of Opioids Does Pt have an Active Cancer Diagnosis on the Problem List?: No Quality: Stroke Does the patient have a stroke diagnosis?: No Physical Exam Vital Signs: Vital Signs: Last Vital Signs Temp 98.2 F 11/27/24 04:00 Pulse 67 11/27/24 04:00 Resp 16 11/27/24 04:00 BP 150/69 H 11/27/24 04:00 Pulse Ox 98 11/27/24 04:00 O2 Del Method Room Air 11/27/24 04:00 O2 Flow Rate 2 11/26/24 14:55 BMI result Body Mass Index 23.1 Const: General: cooperative, healthy appearing and no acute distress Resp: Effort & Inspection: normal respiratory effort and able to speak in complete sentences Cardio: Rate: regular rate Peripheral pulses: Peripheral pulses 2+ throughout GI: Palpation (GI): Soft to palpation Skin: Lesions: no lesions Rashes: no rashes Extrem: Other: right hip dressing is c/d/i. Able to dorsi/plantar flex. Calf is supple and nontender. Sensation intact. Pedal pulse intact. DS: Data Data Completed and Pending Pending studies at discharge: Pending at discharge 11/26/24 11:16 Surgical [PTH] Routine Labs on day of discharge: Laboratory Results - last 24 hr 11/21/24 11/27/24 16:35 05:46 WBC 10.3 RBC 3.72 L D Hgb 11.8 L D Hct 34.1 L MCV 91.7 MCH 31.7 MCHC 34.6 RDW 13.4 Plt Count 246 MPV 10.6 Immature Gran % (Auto) 0.3 Neut % (Auto) 75.0 H Lymph % (Auto) 12.5 L [place] % (Auto) 11.8 H Eos % (Auto) 0.1 Baso % (Auto) 0.3 Lymph # (Auto) 1.3 [place] # (Auto) 1.2 Eos # (Auto) 0.0 Baso # (Auto) 0.0 Abs Immat Gran (auto) 0.03 Absolute Neuts (auto) 7.7 Absolute Nucleated RBC 0.000 Nucleated RBC % (auto) 0.0 Sodium 133 L Potassium 4.1 Chloride 100 Carbon Dioxide 26 Anion Gap 11 L BUN 14 Creatinine 0.48 L Estim Creat Clear Calc 92.5 Estimated GFR > 60 Fasting Glucose 113 H Calcium 8.3 L D Blood Type O Positive Antibody Screen NEGATIVE Discharge Plan Discharge Patient Disposition: Home Health Service Referrals: Tereso Farah PA-C [Physician College Football Coach, Orthopedics] - 12/12/24 11:30 am Discharge Medications: New celecoxib 200 mg Capsule 200 mg PO BID 30 Days Qty: 60 0RF acetaminophen 325 mg Tablet 650 mg PO Q6H PRN (Reason: Pain, Mild 1-3,Fever,Headache) 30 Days Qty: 240 0RF aspirin 325 mg Tablet 325 mg PO BID 42 Days Qty: 84 0RF oxycodone 5 mg Tablet 5 mg PO Q4H PRN (Reason: Pain, Moderate(Pain Scale 4-6)) 7 Days Qty: 42 0RF Rx Instructions: Partial Fill upon patient request. Continued (DME) Folding Front Wheeled walker See Rx Instructions .ROUTE .MEDSUPPLY Qty: 1 0RF Rx Instructions: Duration: 99 days (DME) 3 in 1 commode See Rx Instructions .ROUTE .MEDSUPPLY Qty: 1 0RF Rx Instructions: DURATION : LIFETIME (DME) Raised toilet seat See Rx Instructions .ROUTE .MEDSUPPLY Qty: 1 0RF Rx Instructions: duration - 99 days lorazepam 0.5 mg tablet See Rx Instructions PO .COMPLEX PRN (Reason: anxiety) Qty: 2 0RF Rx Instructions: 1-2 tabs 1-2 hours before procedure orally PRN; lisinopril 30 mg tablet 30 mg PO BEDTIME atenolol 50 mg tablet 50 mg PO BEDTIME multivitamin [One-A-Day Essential] Tablet 1 tab PO DAILY Discharge Orders: Discharge Order (Routine); Ordered 11/27/24 Ordered By: Lucy Holguin Diet: Advance to usual diet Activity on Discharge: Use cane or walker Activity Restrictions/Additional Instructions: Physical Therapy for total hip arthroplasty: posterior precautions, gait training, ROM, strength Limit stair climbing No showering, no tub bath-keep dressing clean, dry and intact No driving x6 weeks Continue Aspirin tabs x 6 weeks Follow up with [facility] Orthopedics in 2 weeks Print Language: Omani
--- NOTE | 2024-11-27 07:26 | P.F2F_ITS ---
Service Date Service Date: 11/27/24 Encounter Date of encounter: 11/27/24 Reasons for Services Signs and symptoms assessed: s/p RTHA Pt. is considered homebound due to recent surgery. Unable to drive, poor balance, poor gait mechanics. Reason for physical therapy: home safety and mobility, therapeutic exercises, restore joint function, gait/transfer training and ADL training Reason for occupational therapy: home safety and mobility, therapeutic exercises, restore joint function, gait/transfer training and ADL training Homebound: Leaving the home is medically contraindicated at this time without the asist of a device and/or another person due th the listed conditions above and below. Reason homebound: unsteady gait / fall risk, leg weakness, pain with ambulation, pain with transfers, poor balance / fall risk and unable to drive Certification: Based on the above findings, I certify that this patient is confined to the home and needs intermittent mcfp care, physical therapy and/or speech therapy, or continues to need occupational therapy. The patient is under my care, and I have initiated the establishment of the plan of care. The patient will be followed by a physician who will periodically review the plan of care. Time Spent With Patient Time: Total time managing care of this patient today ____ minutes.
[2024-11-27 07:50] VITALS: BP 145/64; PULSE 75; RESP 16; TEMP 36.7; O2SAT 97
--- NOTE | 2024-11-27 09:09 | MHC.CM.PN ---
CM MET WITH PT AT BEDSIDE. PT LIVES WITH SPOUSE AND IS FUNCTIONALLY INDEPENDENT AT BASELINE. NO SERVICES/DME. + HCP (COPY WITH INSPECTOR PAWNSHOP DETAIL) PCP DR. KINCAID AT [facility] [place] DP: PT HAS BEEN MEDICALLY CLEARED FOR DC HOME WITH NEW [facility] FOR P.T. SERVICES (FIRST CHOICE) PT'S SPOUSE WILL TRANSPORT.
--- NOTE | 2024-11-27 10:10 | HO.POSTANES ---
Post Anesthesia Evaluation Post Anesthesia Evaluation Date of Service: 11/27/24 Vital Signs: Vital Signs Temp Pulse Resp BP Pulse Ox O2 Del Method 11/27/24 07:50 98.0 F 75 16 145/64 H 97 Room Air 11/27/24 04:00 98.2 F 67 16 150/69 H 98 Room Air 11/26/24 23:00 97.4 F 68 16 140/65 H 98 Room Air Anesthesia: General Mental Status: Awake Pain Control: Satisfactory Nausea/Vomiting: None Hydration: Adequate Anesthesia-Related Issues: No Anes. Related Issues
[2024-11-27 10:54] VITALS: BP 137/61; PULSE 80; RESP 16; TEMP 36.6; O2SAT 98
--- NOTE | 2024-12-02 09:08 | P.OP_ITS ---
Operative Note Operative Note Date of Service: 11/26/24 Narrative: Date of Service: 11/26/24 Pre-op diagnosis: Right hip OA Post-op diagnosis: same Procedure: Right YARI Implants: [place] Trident2 48/ lip liner; Accoalde2 #5 127 with -4 32 ceramic Surgeon: Yfn Childers MD Anesthesia: GETA and local Was an Diesel Truck Crane Operator used for this Procedure?: Yes Diesel Truck Crane Operator: Tereso Farah Estimated blood loss (mL): 175 IV fluids (mL): 850 Pathology: other Condition: stable Disposition: PACU Procedure in detail: Patient was brought into the operating room and placed in the left lateral decubitus position. All bony prominences were well padded and the limb was prepped and draped in standard sterile fashion. A time-out was called to identify proper site procedure proper surgeon IV antibiotics and 1 g of tranexamic acid were administered. I began by making a curvilinear incision over the posterolateral aspect of the greater trochanter. Dissection was taken down to the tensor fascia which was incised in line with the incision and a Charnley retractor was placed. A Fastseal Werewolf was used to maintain hemostasis. The hip was internally rotated and the external rotators were identified. The vessels were cauterized and a full-thickness capsular/external rotator layer was developed starting just proximal to the piriformis. The posterior soft tissues were protected at all times. This layer was tagged and a dull Hohmann retractor was placed underneath the neck in the hip was dislocated. A neck cut was made 1 cm proximal to the lesser trochanter and the head and neck were removed and measured 44mm on the back table. The head was eburnated. I then removed the labrum and cauterized the fovea. I started with a 42 reamer and medialized to the inner table. I sequentially reamed up to a size 48 and impacted a 48mm cup at 45 degrees of inclination and 25 degrees of version. Th ree acetabular screws were inserted into the superior safe zone using standard AO technique. I then placed a 20 deg posterior lipped liner and turned my attention to the femur. I identified the piriformis insertion and used this as a starting point for my alli cutter. The medius tendon was protected with a Hibs retractor. A Charnley awl was inserted in the canal and a curved curette used to remove the lateral bone. I irrigated copiously. I then sequentially broached in the patient's natural version to a size 4 and placed my trial implants. I used a #5/127 based on my pre-operative template. I removed all instrumentation and copiously irrigated. I placed my final femoral implant and again took the hip through range of motion and was satisfied with the stability and length. I trialed several head sizes until I selected a -4/32. The final +4 implant was impacted in place and the hip reduced. I then irrigated copiously and placed 1 g of local tranexamic acid. I performed a capsular closure with 2.0 fiberwire, Naif's fascia with 0 Vicryl, subcuticular with 2-0 Vicryl and the skin with juvenal. Patient was placed into a sterile dressing. Patient was extubated brought to the recovery room in stable condition. There were no known complications.
== END 2024-11-27 11:30 | disposition home health service (06) ==
LOC: HO.SSS 07:00 → HO.S3 14:56
PROVIDERS: Physician Assistant; PCP Internal Medicine; Visit Provider Orthopaedic Surgery
PROC: (CPT 27130; principal; 2024-11-26 10:10)
DX: M16.11 Unilateral primary osteoarthritis, right hip (principal); I10 Essential (primary) hypertension; E78.00 Pure hypercholesterolemia, unspecified; M85.80 Other specified disorders of bone density and structure, unspecified site; E53.8 Deficiency of other specified B group vitamins; E55.9 Vitamin D deficiency, unspecified; J30.2 Other seasonal allergic rhinitis; Z79.899 Other long term (current) drug therapy; F41.8 Other specified anxiety disorders; Z87.891 Personal history of nicotine dependence
CPT/HCPCS: 27130; 36415; 72170; 80048; 85025; 86850; 86900; 86901; 87640; 87641; 88304; 88311; 97161; 97165; C1713; C1776; J0131; J0690; J1100; J1171; J2003; J2405; J2704; J2795; J3010; J7120

== ENCOUNTER → 2024-11-26 06:59 | Outpatient (BNV) | payer MEDICARE, OTHER, SELFPAY | PROVIDERS: PCP Internal Medicine; Visit Provider Orthopaedic Surgery | DX: Z47.1 Aftercare following joint replacement surgery (principal); Z96.641 Presence of right artificial hip joint | CPT/HCPCS: 27130; 99024; G0180 ==

== ENCOUNTER → 2024-11-26 06:59 | Outpatient (BNV) | payer MEDICARE, OTHER, SELFPAY | PROVIDERS: PCP Internal Medicine; Visit Provider Physician Assistant | DX: Z96.641 Presence of right artificial hip joint (principal) | CPT/HCPCS: 99222 ==

== ENCOUNTER → 2024-11-26 12:33 | Outpatient (BNV) | payer MEDICARE, OTHER, SELFPAY | PROVIDERS: PCP Internal Medicine; Visit Provider Radiology Diagnostic Radiology | DX: M25.852 Other specified joint disorders, left hip (principal) | CPT/HCPCS: 72170 ==

== ENCOUNTER 2024-12-12 11:27 | Outpatient (AMB) | payer MEDICARE, OTHER, SELFPAY ==
--- NOTE | 2024-12-12 11:29 | A.OFFVIS_ITS ---
Intake Visit Reasons: 2WKPO: R YARI w/NE 11/26/24 Intake Note: Josie is a 74 year old woman who presents today for her first post operative visit status post right YARI by Dr Childers DOS: 11/26/24. Vero reports that she is doing well, stastes painis almost non existent. Soreness in morning and night, discomfort at night. Allergies No Known Allergies Allergy (Verified 11/26/24 07:27) Medication List - Last Reconciled 12/12/24 by Tereso Farah PA-C [3 in 1 commode DURATION : LIFETIME] aspirin 325 mg PO BID 42 days atenolol 50 mg PO BEDTIME [Folding Front Wheeled walker Duration: 99 days] lisinopril 30 mg PO BEDTIME lorazepam 1-2 tabs 1-2 hours before procedure orally PRN; multivitamin (One-A-Day Essential tablet) 1 tab PO DAILY [Raised toilet seat duration - 99 days] HPI HPI 2WKPO: R YARI w/NE 11/26/24: Details: 74-year-old female presents to the office today for a follow up 2 weeks status post right total hip arthroplasty on 11/26/2024. She is ambulating with a cane and she is ready to transition to outpatient physical therapy. She has no concerns today. [facility] Medical History Osteoarthritis Anxiety Environmental and seasonal allergies Breast cancer screening by mammogram Colon cancer screening Positive colorectal cancer screening using Cologuard test Nasal fracture Vitamin B12 deficiency Vitamin D deficiency Hypercholesterolemia Hypertension Surgical History History of bilateral cataract extraction History of surgery on right wrist Hx of wisdom tooth extraction Hx of colonoscopy Family History Mother Dementia Father Suicide Brother No problems noted. Sister No problems noted. Son No problems noted. Social History Household Members: Spouse Housing: House Are you a primary critical care physician assistant to a significant other at home: No Do you presently have visiting nurse or other home services: No 75 years or older and lives alone: No Alcohol intake: current Alcohol intake frequency: a few times a month Alcohol type: wine Patient Tobacco Use Status: Former Tobacco user Tobacco use type: Cigarette Years Smoked: stopped 1999 e-Cigarette/Vaping Use: Never Used Second Hand Smoke Exposure: Yes service: No Current occupational status: retired Cognitive needs: No Hearing needs: No Vision needs: No Review of Systems Const All systems reviewed & are unremarkable except as noted in HPI and below Physical Exam Const General: cooperative and no acute distress Orientation/consciousness: patient oriented x3 Resp Effort & Inspection: normal respiratory effort and able to speak in complete sentences Cardio Peripheral pulses: Peripheral pulses 2+ throughout Neuro General: patient oriented x3 Extrem Other: Right hip incision is clean dry and intact no erythema no swelling. No pain with hip flexion or ROM, NVI Assessment & Plan Assessment & Plan (1) S/P total right hip arthroplasty: Code(s): Z96.641 - Presence of right artificial hip joint Category: Surgical Plan: [place] removed today Steri-Strips applied. She will transition to outpatient physical therapy to continue working on strengthening and gait training exercises. She will continue her anticoagulant therapy for another 4 weeks and she will see us back for her routine postop appointment with Dr. Childers, sooner if needed. Coding Level of Care Code Global (57000) Diagnoses S/P total right hip arthroplasty Z96.641
--- OUTSIDE RECORDS SUMMARY | 2024-12-12 12:46 | XMS_ITS | Encounter Summary ---
Author Organization [facility] Address [address] [place] [address] Phone Care Team Providers Care Courier Driver Name Role Phone Thomas Tracey MD Primary Care Provider [phone] Encounter Details Date Type Department Care Team (Late st Contact Info) Description 05/22/2019 Ancillary Orders Virtual Department [address] [place] [address] Thomas Tracey MD [address] [place] [id number] Breast screening Social History Tobacco Use Types Packs/Day Years Used Date Smoking Tobacco: Never Assessed Comments No Sex and Gender Information Value Date Recorded Sex Assigned at Not on file Legal Sex Female 10:02 PM EDT Gender Identity Not on file Sexual Orientation Not on file documented as of this encounter Plan of Treatment Not on file documented as of this encounter Results * BI MAMMOGRAM SCREENING WITH TOMOSYNTHESIS WITH CAD (BILATERAL) (05/29/2019 12:00 PM EST) Anatomical Region Laterality Modality Breast Left, Breast Right, Breast Bilateral Bila teral Mammography 06/04/2019 8:23 AM EST Impressions 06/04/2019 8:26 AM EST No mammographic evidence of malignancy. BI-RADS CATEGORY: 1 - Negative. DENSITY: The breast tissue is heterogeneously dense, an appearance which lowers the sensitivity of mammography. POS - CD[facility]AMA Narrative 06/04/2019 8:26 AM EST Standard digital full-field 2-D C view and two-plane tomographic imaging was performed and compared with multiple prior studies, most recently 04/27/2017, with utilization of computer-aided detection. The breast parenchyma is heterogeneously dense, somewhat limiting mammographic sensitivity. The stromal markings are essentially unchanged in overall appearance and distribution. No dominant spiculated mass, suspicious clustered microcalcifications, or focal zone of pathologic skin thickening or retraction are noted to have arisen in the interim. Procedure Note Giuliano Golden MD - 06/04/2019 Standard digital full-field 2-D C view and two-plane tomographic imagingwas performed and compared with multiple prior studies, most [id number], with utilization of computer-aided detection. The breast [...] unspecified documented in this encounter Care Teams Courier Driver Relationship Specialty Start Date End Date Thomas Tracey MD [address] [place] [address] Drive [address] [place] [phone] PCP - General Internal Medicine 03/29/17 documented as of this encounter Additional Source Comments The information contained in this document represents components of the legal health record. It is not the complete legal health record.[facility]
--- OUTSIDE RECORDS SUMMARY | 2024-12-12 12:46 | XMS_ITS | Patient Health Record ---
Author Organization [facility] Address [address] [place] [address] Care Team Providers Care Foam Charger Name Role Phone Thomas Tracey MD Primary Care Provider Aram Almendarez [phone] Allergies No Known Allergies Reason For Referral [...] Risk Notes Problem Diverticular disease of colon (766177089) Diverticulosis of large intestine without perforation or abscess without bleeding (K57.30) Active confirmed Problem [id number] Positive colorectal cancer screening using Cologuard test (R19.5) Active confirmed Plan Of Treatment Future Test Test Name Order Date COLONOSCOPY 12/06/2022 Insurance Providers Payer Name Payer Address Payer Phone Subscriber Number Group Number Insured Name Patient Relationship to Insured Coverage Start Date Coverage End Date MEDICARE OF [place] [address] CATHERINE SHERWOODNAHUN [id number] LUCRETIA SPAIN Self - patient is the insured [facility] [address] FALGUNI Ribera [phone] [id number] LUCRETIA SPAIN Self - patient is the insured Medical (General) History Medical History History ICD Code Hypertension Denies ME,DM,CVA,Lung disease,renal dise ase Surgical History Surgery Date(Month/Year)
--- OUTSIDE RECORDS SUMMARY | 2024-12-12 12:46 | XMS_ITS | Encounter Summary ---
Author Organization [facility] Address [address] [place] [address] Phone Care Team Providers Care Waterworks Pump Station Operator Name Role Phone Thomas Tracey MD Primary Care Provider [phone] Encounter Details Date Type Department Care Team (Late st Contact Info) Description 03/29/2017 Ancillary Orders Virtual Department [address] [place] [address] Thomas Tracey MD [address] [place] [phone] Breast screening Social History Tobacco Use Types [...] and compared with multiple prior studies, most czvbjuic64/26/2016, with utilization of computer-aided detection. The breast [...] unspecified documented in this encounter Care Teams Waterworks Pump Station Operator Relationship Specialty Start Date End Date Thomas Tracey MD [address] [place] [address] Drive [address] [place] [phone] PCP - General Internal Medicine 03/29/17 documented as of this encounter Additional Source Comments The information contained in this document represents components of the legal health record. It is not the complete legal health record.[facility]
--- OUTSIDE RECORDS SUMMARY | 2024-12-12 12:46 | XMS_ITS | Encounter Summary ---
Author Organization [facility] Address [address] [place] [address] Phone Care Team Providers Care Cue Selector Name Role Phone Thomas Tracey MD Primary Care Provider [phone] Encounter Details Date Type Department Care Team (Latest Contact Info) Description 05/29/2019 Transcribe Orders [address] [place] [address] Thomas Tracey MD [address] [place] [address] Annual physical exam (Primary Dx); Colonoscopy refused; Colon cancer screening; Benign essential hypertension; Pure hypercholesterolemia Social History Tobacco Use Types Packs/Day Years Used Date Smoking Tobacco: Never Assessed Comments No Sex and Gender Information Value Date Recorded Sex Assigned at Not on file Legal Sex Female 10:02 PM EDT Gender Identity Not on file Sexual Orientation Not on file documented as of this encounter Plan of Treatment Not on file documented as of this encounter Results * T4, total (05/29/2019 11:57 AM EST) THYROXINE 6.5 4.6 - 12.0 ug/dL [facility] Blood 05/29/2019 11:5 7 AM EST 05/29/2019 12:02 PM EST Thomas Tracey MD LAB BLOOD ORDERABLES Final Re sult [address] [address] * Folate (05/29/2019 11:57 AM EST) Pathologist [facility] FOLIC ACID 8.1 4.2 - 19.9 ng/mL [facility] Blood 05/29/2019 11:5 7 AM EST 05/29/2019 12:02 PM EST Thomas Tracey MD LAB BLOOD ORDERABLES Final Re sult Performing Organization Address [facility]/ZIP Co de Phone Number [address] [address] * (ABNORMAL) Vitamin B12 (05/29/2019 11:57 AM EST) [facility] VITAMIN B12 185(L) 232 - 1,245 pg/mL [facility] Blood 05/29/2019 11:5 7 AM EST 05/29/2019 12:02 PM EST Thomas Tracey MD LAB BLOOD [facility]ABLES [facility] Performing Organization Address [facility] Co de Phone Number [address] [address] * (ABNORMAL) Comprehensive metabolic panel (05/29/2019 11:57 AM EST) Pathologist [facility] SODIUM 140 133 - 146 mmol/L [facility] POTASSIUM 4.0 3.3 - 5.1 mmol/L [facility] CHLORIDE 102 96 - 108 mmol/L [facility] CO2 26 21 - 35 mmol/L [facility] BUN 19 6 - 19 mg/dL [facility] CREATININE 0.70 0.5 - 1.5 mg/dL [facility] GLUCOSE 100(H) 70 - 99 mg/dL [facility] ALBUMIN 4.4 3.9 - 4.8 g/dL [facility] TOTAL PROTEIN 7.2 6.5 - 8.0 g/dL [facility] CALCIUM 9.6 8.4 - 10.3 mg/dL [facility] ALKALINE PHOSPHATASE 66 39 - 117 U/L [facility] TOTAL BILIRUBIN 0.4 0.0 - 1.2 mg/dL [facility] AST 17 0 - 37 U/L [facility] ALT 11 0 - 40 U/L [facility] GLOBULIN 2.8 1 - 4.8 g/dL [facility] EGFR 88 >59 mL/min/1.7 3m2 [facility] Comment:If patient is black, multiply result by 1.159. Estimated glomerular filtration rate calculated using the CKD-EPI equation. ANION GAP 16 10 - 20 mmol/L [facility] Blood 05/29/2019 11:5 7 AM EST 05/29/2019 12:02 PM EST Thomas Tracey MD LAB BLOOD ORDERABLES Final Re sult Performing Organization Address [facility] Co de Phone Number [address] [address] * TSH (05/29/2019 11:57 AM EST) TSH 1.15 0.27 - 4.20 uIU/mL [facility] Blood 05/29/2019 11:5 7 AM EST 05/29/2019 12:02 PM EST Thomas Tracey MD LAB BLOOD ORDERABLES Final Re sult Performing Organization Address [facility] Co de Phone Number [address] [address] * (ABNORMAL) CBC and differential (05/29/2019 11:57 AM EST) WBC 6.74 4.00 - 11.00 K/uL [facility] Comment:Note Reference Range updates to all CBC and Differential results. RBC 4.56 3.72 - 5.30 M/uL [facility] HGB 13.2 11.4 - 15.9 g/dL [facility] Comment:Note updated Referen ce Ranges for all CBC and Differential results. HCT 39.7 34.2 - 46.8 % [facility] PLT 311 140 - 430 K/uL [facility] MCV 87.1 78.0 - 97.0 fL [facility] MCH 28.9 25.0 - 33.0 pg [facility] MCHC 33.2 32.0 - 36.0 g/dL [facility] RDW 14.2 11.0 - 16.0 % [facility] MPV 10.5 8.4 - 12.8 fl [facility] NRBC 0.00 0 /100 WBCs [facility] ABSOLUTE NRBC 0.00 0 K/uL [facility] DIFF METHOD Auto [facility] NEUTS 60.8 43.0 - 75.0 % [facility] LYMPHS 27.4 18.2 - 47.4 % [facility] MONOS 8.0 4.00 - 11.00 % [facility] EOS 1.9 0.0 - 8.0 % [facility] BASOS 1.6 0.0 - 2.0 % [facility] Granulocytes, immature (%) 0.3 0.0 - 0.9 % [facility] ABSOLUTE NEUTS 4.09 1.80 - 7.70 K/uL [facility] ABSOLUTE LYMPHS 1.85 1.00 - 3.10 K/uL [facility] ABSOLUTE MONOS 0.54 0.20 - 0.80 K/uL [facility] ABSOLUTE EOS 0.13 0.00 - 0.80 K/uL [facility] ABSOLUTE BASOS 0.11(H) 0.00 - 0.09 K/uL [facility] Granulocytes, immature 0.02 0.00 - 0.05 K/uL [facility] Blood 05/29/2019 11:5 7 AM EST 05/29/2019 12:02 PM EST us Thomas Tracey MD LAB BLOOD ORDERABLES Final Re sult [facility] [address] [place] [address] * (ABNORMAL) 25-OH vitamin D (05/29/2019 11:57 AM EST) 25 OH VIT D (TOTAL) 23(L) 30 - 60 ng/mL [facility] Blood 05/29/2019 11:5 7 AM EST 05/29/2019 12:02 PM EST Thomas Tracey MD LAB BLOOD ORDERABLES Final Re sult Performing Organization Address [facility] Co de Phone Number [address] [address] * (ABNORMAL) Lipid panel (05/29/2019 11:57 AM EST) HDL 74 mg/dL [facility] Comment: Interpretation <40 mg/dL: Low HDL cholesterol (major risk factor for CHD) Greater than or equal to 60 mg/dL: High HDL cholesterol ( negative risk factor for CHD) HDL - cholesterol is affected by a number of factors, e.g. smoking, excerise, hormones, sex and age. CHOLESTEROL 242(H) 0 - 240 mg/dL [facility] TRIGLYCERIDES 77 30 - 160 mg/dL [facility] LDL 153(H) 50 - 129 mg/dL [facility] Comment: LDL levels in terms of risk for coronary heart disease: <100 mg/dL: Optimal 100-129 mg/dL: Near or above optimal 130-159 mg/dL: Borderline high 160-189 mg/dL: High >190 mg/dL: Very High CARDIAC RISK RATIO 3.3 3.3 - 4.4 C [facility] Blood 05/29/2019 11:5 7 AM EST 05/29/2019 12:02 PM EST Thomas Tracey MD LAB BLOOD ORDERABLES Final Re sult Performing Organization Address [facility]/ZIP Co de Phone Number [address] [address] documented in this encounter Visit Diagnoses Diagnosis Annual physical exam- Primary Routine general medical examination at a health care facility Colonoscopy refused Colon cancer screening Special screening for malignant neoplasms, colon Benign essential hypertension Essential hypertension, benign Pure hypercholesterolemia documented in this encounter Care Teams Cue Selector Relationship Specialty Start Date End Date Thomas Tracey MD [address] [place] [address] PCP - General Internal Medicine 03/29/17 documented as of this encounter Additional Source Comments The information contained in this document represents components of the legal health record. It is not the complete legal health record.[facility]
--- OUTSIDE RECORDS SUMMARY | 2024-12-12 12:46 | XMS_ITS | Clinical Summary ---
Author Organization [facility] Address [address] [place] [address] Phone Care Team Providers Care Aoc Plans Intelligence Officer Name Role Phone Thomas Tracey MD Primary Care Provider [phone] Social History Tobacco Use Types Packs/Day Years Used Date Smoking Tobacco: Never Assessed Education Answer Date Recorded Are you interested in more education? Not on lily e 08/12/2022 Are you concerned about learning? Not on file 08/12/2022 No 08/12/2022 No 08/12/2022 Digital Access Answer Date Recorded No 09/12/2022 No 09/12/2022 Reliable internet access at home? Not on file 09/12/2022 Device with a working camera? Not on file Comments No Sex and Gender Information Value Date Recorded Sex Assigned at Not on file Legal Sex Female 10:02 PM EDT Gender Identity Not on file Sexual Orientation Not on file Plan of Treatment Not on file Medical Devices Not on file Insurance MEDICARE PART A & B MEDICARE PART A & B MEDICARE PART A & B MEDICARE PART A & B MEDICARE PART A & B MEDICARE PART A & B MEDICARE PART A & B MEDICARE PART A & B MEDICARE PART A & B Care Teams Aoc Plans Intelligence Officer Relationship Specialty Start Date End Date Thomas Tracey MD [address] [place] [address] PCP - General Internal Medicine 03/29/17 Additional Source Comments The information contained in this document represents components of the legal health record. It is not the complete legal health record.[facility]
== END 2024-12-12 12:12 | disposition home or self-care (01) ==
LOC: HO.HOS 11:28
PROVIDERS: PCP Internal Medicine; Visit Provider Physician Assistant
DX: Z96.641 Presence of right artificial hip joint (principal)
CPT/HCPCS: 99024

== ENCOUNTER → 2024-12-12 11:27 | Outpatient (BNVA) | payer MEDICARE, OTHER, SELFPAY | PROVIDERS: PCP Internal Medicine; Visit Provider Physician Assistant | DX: Z47.1 Aftercare following joint replacement surgery (principal); Z96.641 Presence of right artificial hip joint | CPT/HCPCS: 99212 ==

== ENCOUNTER 2025-01-02 13:22 | Outpatient (REF) | payer MEDICARE, OTHER, SELFPAY ==
--- NOTE | ~2025-01-02 | XR_ITS ---
CLINICAL HISTORY: M25.559 - Pain in unspecified hip 2 view pelvis Comparison: CR/SR - XR PELVIS 1-2 VIEWS - 11/26/24 12:40 EDT Findings: Prior right hip replacement. Appropriate alignment. No evidence of hardware failure. No fracture or dislocation. Mild arthritic change of the left hip. Soft tissues are unremarkable. IMPRESSION: 1. No acute findings. This document has been electronically signed by: Tori Ariza MD on 01/03/2025 15:12:58
== END 2025-01-02 13:23 | disposition home or self-care (01) ==
LOC: HO.HOSX 13:22
PROVIDERS: PCP Internal Medicine; Visit Provider Orthopaedic Surgery
DX: M25.551 Pain in right hip (principal); Z96.641 Presence of right artificial hip joint; Z47.1 Aftercare following joint replacement surgery
CPT/HCPCS: 72170; 99212

== ENCOUNTER 2025-01-02 13:22 | Outpatient (AMB) | payer MEDICARE, OTHER, SELFPAY ==
--- NOTE | 2025-01-02 13:46 | A.OFFVIS_ITS ---
Intake Visit Reasons: 2ND PO: R YARI w/NE 11/26/24 Intake Note: Josie is a 74 year old female who presents today for a post operative appointment about 5 weeks s/p Right YARI 11/26/24. She has started outpatient therapy on 12/31/24 with [facility]. Patient reports that she is doing well, she does have some redness at the incision site that has been present for about 2-3 weeks now. Allergies No Known Allergies Allergy (Verified 11/26/24 07:27) HPI HPI 2ND PO: R YARI w/NE 11/26/24: Details: Josie is a 74 year old female who presents today for a post operative appointment about 5 weeks s/p Right YARI 11/26/24. She has started outpatient therapy on 12/31/24 with [facility]. Patient reports that she is doing well, she does have some redness at the incision site that has been present for about 2-3 weeks now. [facility] Medical History Osteoarthritis Anxiety Environmental and seasonal allergies Breast cancer screening by mammogram Colon cancer screening Positive colorectal cancer screening using Cologuard test Nasal fracture Vitamin B12 deficiency Vitamin D deficiency Hypercholesterolemia Hypertension Surgical History History of bilateral cataract extraction History of surgery on right wrist Hx of wisdom tooth extraction Hx of colonoscopy Family History Mother Dementia Father Suicide Brother No problems noted. Sister No problems noted. Son No problems noted. Social History Household Members: Spouse Housing: House Are you a primary skin care technician to a significant other at home: No Do you presently have visiting nurse or other home services: No 75 years or older and lives alone: No Alcohol intake: current Alcohol intake frequency: a few times a month Alcohol type: wine Patient Tobacco Use Status: Former Tobacco user Tobacco use type: Cigarette Years Smoked: stopped 1999 e-Cigarette/Vaping Use: Never Used Second Hand Smoke Exposure: Yes service: No Current occupational status: retired Cognitive needs: No Hearing needs: No Vision needs: No Physical Exam Extrem Other: There is no pain with hip ROM Walking normally There is an area of erythema without fluctuance or drainage along the incision. Appears very superficial. Results Reviewed Results Reviewed: I personally reviewed relevant radiographs. Right YARI in expected post operative position with no hardware complications or evidence of loosening Assessment & Plan Assessment & Plan (1) S/P total right hip arthroplasty: Code(s): Z96.641 - Presence of right artificial hip joint Category: Surgical Plan: There is an area of superficial erythema over the incision. She has no evidence of deep infection and her erythema may reflect suture abcess vs cellulitis although the erythema is so limited would be an unusual presentation for cellulitis. I recommend Doxy and warm compresses. F/u one week. Orders: Orders XR pelvis 1-2V 01/02/25 M25.559 - Pain in unspecified hip Coding Level of Care Code Global (06240) Diagnoses S/P total right hip arthroplasty Z96.641
--- OUTSIDE RECORDS SUMMARY | 2025-01-02 15:24 | XMS_ITS | Encounter Summary ---
Author Organization [facility] Address [address] [place] [address] Phone Care Team Providers Care Petroleum Products District Supervisor Name Role Phone Thomas Tracey MD Primary Care Provider [phone] Encounter Details Date Type Department Care Team (Late st Contact Info) Description 03/29/2017 Ancillary Orders Virtual Department [address] [place] [address] Thomas Tracey MD [address] [place] [phone] Breast screening Social History Tobacco Use Types [...] and compared with multiple prior studies, most htnbeibs14/26/2016, with utilization of computer-aided detection. The breast [...] unspecified documented in this encounter Care Teams Petroleum Products District Supervisor Relationship Specialty Start Date End Date Thomas Tracey MD [address] [place] [address] Drive [address] [place] [address] PCP - General Internal Medicine 03/29/17 documented as of this encounter Additional Source Comments The information contained in this document represents components of the legal health record. It is not the complete legal health record.[facility]
--- OUTSIDE RECORDS SUMMARY | 2025-01-02 15:24 | XMS_ITS | Clinical Summary ---
Author Organization [facility] Address [address] [place] [address] Phone Care Team Providers Care Product Safety And Standards Engineer Name Role Phone Thomas Tracey MD Primary Care Provider Social History Tobacco Use Types Packs/Day Years [...] MEDICARE PART A & B Care Teams Product Safety And Standards Engineer Relationship Specialty Start Date End Date Thomas Tracey MD [address] [place] [address] PCP - General Internal Medicine 03/29/17 Additional Source Comments The information contained in this document represents components of the legal health record. It is not the complete legal health record.[facility]
--- OUTSIDE RECORDS SUMMARY | 2025-01-02 15:24 | XMS_ITS | Encounter Summary ---
Author Organization [facility] Address [address] [place] [address] Phone Care Team Providers Care Dairy Hand Name Role Phone Thomas Tracey MD Primary Care Provider [phone] Encounter Details Date Type Department Care Team (Late st Contact Info) Description 05/22/2019 Ancillary Orders Virtual Department [address] [place] [address] Thomas Tracey MD [address] [place] [phone] Breast screening Social History Tobacco Use Types [...] and compared with multiple prior studies, most uaitvlkt27/11/2018, with utilization of computer-aided detection. The breast [...] unspecified documented in this encounter Care Teams Dairy Hand Relationship Specialty Start Date End Date Thomas Tracey MD [address] [place] [address] Drive [address] [place] [phone] PCP - General Internal Medicine 03/29/17 documented as of this encounter Additional Source Comments The information contained in this document represents components of the legal health record. It is not the complete legal health record.[facility]
--- OUTSIDE RECORDS SUMMARY | 2025-01-02 15:24 | XMS_ITS | Encounter Summary ---
Author Organization [facility] Address [address] [place] [address] Phone Care Team Providers Care Online Marketing Analyst Name Role Phone Thomas Tracey MD Primary Care Provider [phone] Encounter Details Date Type Department Care Team (Latest Contact Info) Description 05/29/2019 Transcribe Orders [address] [place] [address] Thomas Tracey MD [address] [place] [address] Annual physical exam (Primary Dx); [...] EST) THYROXINE 6.5 4.6 - 12.0 ug/dL [facility] Blood 05/29/2019 11:5 7 AM EST 05/29/2019 12:02 PM EST Thomas Tracey MD LAB BLOOD ORDERABLES Final Re sult [address] [address] * Folate (05/29/2019 11:57 AM EST) Pathologist [facility] FOLIC ACID 8.1 4.2 - 19.9 ng/mL [facility] Blood 05/29/2019 11:5 7 AM EST 05/29/2019 12:02 PM EST Thomas Tracey MD LAB BLOOD ORDERABLES Final Re sult Performing Organization Address [facility]/ZIP Co de Phone Number [address] [address] * (ABNORMAL) Vitamin B12 (05/29/2019 11:57 AM EST) [facility] VITAMIN B12 185(L) 232 - 1,245 pg/mL [facility] Blood 05/29/2019 11:5 7 AM EST 05/29/2019 12:02 PM EST Thomas Tracey MD LAB BLOOD ORDERABLES Final Re [facility] Performing Organization Address [facility] Co de Phone Number [address] [address] * (ABNORMAL) Comprehensive metabolic panel (05/29/2019 11:57 AM EST) Pathologist [facility] SODIUM 140 133 - 146 mmol/L [facility] POTASSIUM 4.0 3.3 - 5.1 mmol/L [facility] CHLORIDE 102 96 - 108 mmol/L [facility] CO2 26 21 - 35 mmol/L [facility] BUN 19 6 - 19 mg/dL [facility] CREATININE 0.70 0.5 - 1.5 mg/dL [facility] GLUCOSE 100(H) 70 - 99 mg/dL [facility] ALBUMIN 4.4 3.9 - 4.8 g/dL [facility] TOTAL PROTEIN 7.2 6.5 - 8.0 g/dL [facility] CALCIUM 9.6 8.4 - 10.3 mg/dL [facility] ALKALINE PHOSPHATASE 66 39 - 117 U/L [facility] TOTAL BILIRUBIN 0.4 0.0 - 1.2 mg/dL [facility] AST 17 0 - 37 U/L [facility] ALT 11 0 - 40 U/L [facility] GLOBULIN 2.8 1 - 4.8 g/dL [facility] EGFR 88 >59 mL/min/1.7 3m2 [facility] Comment:If patient is black, multiply result by 1.159. Estimated glomerular filtration rate calculated using the CKD-EPI equation. ANION GAP 16 10 - 20 mmol/L [facility] Blood 05/29/2019 11:5 7 AM EST 05/29/2019 12:02 PM EST Thomas Tracey MD LAB BLOOD ORDERABLES Final Re sult Performing Organization Address [facility] Co de Phone Number [address] [address] * TSH (05/29/2019 11:57 AM EST) TSH 1.15 0.27 - 4.20 uIU/mL [facility] Blood 05/29/2019 11:5 7 AM EST 05/29/2019 12:02 PM EST Thomas Tracey MD LAB BLOOD ORDERABLES Final Re sult Performing Organization Address [facility] Co de Phone Number [address] [address] * (ABNORMAL) CBC and differential (05/29/2019 11:57 AM EST) WBC 6.74 4.00 - 11.00 K/uL [facility] Comment:Note Reference Range updates to all CBC and Differential results. RBC 4.56 3.72 - 5.30 M/uL [facility] HGB 13.2 11.4 - 15.9 g/dL [facility] Comment:Note updated Referen ce Ranges for all CBC and Differential results. HCT 39.7 34.2 - 46.8 % [facility] PLT 311 140 - 430 K/uL [facility] MCV 87.1 78.0 - 97.0 fL [facility] MCH 28.9 25.0 - 33.0 pg [facility] MCHC 33.2 32.0 - 36.0 g/dL [facility] RDW 14.2 11.0 - 16.0 % [facility] MPV 10.5 8.4 - 12.8 fl [facility] NRBC 0.00 0 /100 WBCs [facility] ABSOLUTE NRBC 0.00 0 K/uL [facility] DIFF METHOD Auto [facility] NEUTS 60.8 43.0 - 75.0 % [facility] LYMPHS 27.4 18.2 - 47.4 % [facility] MONOS 8.0 4.00 - 11.00 % [facility] EOS 1.9 0.0 - 8.0 % [facility] BASOS 1.6 0.0 - 2.0 % [facility] Granulocytes, immature (%) 0.3 0.0 - 0.9 % [facility] ABSOLUTE NEUTS 4.09 1.80 - 7.70 K/uL [facility] ABSOLUTE LYMPHS 1.85 1.00 - 3.10 K/uL [facility] ABSOLUTE MONOS 0.54 0.20 - 0.80 K/uL [facility] ABSOLUTE EOS 0.13 0.00 - 0.80 K/uL [facility] ABSOLUTE BASOS 0.11(H) 0.00 - 0.09 K/uL [facility] Granulocytes, immature 0.02 0.00 - 0.05 K/uL [facility] Blood 05/29/2019 11:5 7 AM EST 05/29/2019 12:02 PM EST us Thomas Tracey MD LAB BLOOD ORDERABLES Final Re sult [facility] [address] [place] [address] * (ABNORMAL) 25-OH vitamin D (05/29/2019 11:57 AM EST) 25 [place] VIT D (TOTAL) 23(L) 30 - 60 ng/mL [facility] Blood 05/29/2019 11:5 7 AM EST 05/29/2019 12:02 PM EST Thomas Tracey MD LAB BLOOD ORDERABLES Final Re sult Performing Organization Address [facility] Co de Phone Number [address] [address] * (ABNORMAL) Lipid panel (05/29/2019 11:57 AM EST) HDL 74 mg/dL [facility] Comment: Interpretation <40 mg/dL: Low HDL cholesterol (major risk factor for CHD) Greater than or equal to 60 mg/dL: High HDL cholesterol ( negative risk factor for CHD) HDL - cholesterol is affected by a number of factors, e.g. smoking, excerise, hormones, sex and age. CHOLESTEROL 242(H) 0 - 240 mg/dL [facility] TRIGLYCERIDES 77 30 - 160 mg/dL [facility] LDL 153(H) 50 - 129 mg/dL [facility] Comment: LDL levels in terms of risk for coronary heart disease: <100 mg/dL: Optimal 100-129 mg/dL: Near or above optimal 130-159 mg/dL: Borderline high 160-189 mg/dL: High >190 mg/dL: Very High CARDIAC RISK RATIO 3.3 3.3 - 4.4 [facility] Blood 05/29/2019 11:5 7 AM EST 05/29/2019 12:02 PM EST Thomas Tracey MD LAB BLOOD ORDERABLES Final Re sult Performing Organization Address [facility]/ZIP Co de Phone Number [address] [address] documented in this encounter Visit Diagnoses Diagnosis Annual physical exam- Primary Routine general medical examination at a health care facility Colonoscopy refused Colon cancer screening Special screening for malignant neoplasms, colon Benign essential hypertension Essential hypertension, benign Pure hypercholesterolemia documented in this encounter Care Teams Online Marketing Analyst Relationship Specialty Start Date End Date Thomas Tracey MD [address] [place] [id number] PCP - General Internal Medicine 03/29/17 documented as of this encounter Additional Source Comments The information contained in this document represents components of the legal health record. It is not the complete legal health record.[facility]
== END 2025-01-02 14:31 | disposition home or self-care (01) ==
LOC: HO.HOS 13:23
PROVIDERS: PCP Internal Medicine; Visit Provider Orthopaedic Surgery
DX: Z96.641 Presence of right artificial hip joint (principal)
CPT/HCPCS: 99024

== ENCOUNTER → 2025-01-02 13:27 | Outpatient (BNV) | payer MEDICARE, OTHER, SELFPAY | PROVIDERS: PCP Internal Medicine; Visit Provider Radiology Diagnostic Radiology | DX: Z96.641 Presence of right artificial hip joint (principal); M16.12 Unilateral primary osteoarthritis, left hip | CPT/HCPCS: 72170 ==

== ENCOUNTER 2025-01-13 10:53 | Outpatient (RCR) | payer MEDICARE, OTHER, SELFPAY ==
--- NOTE | 2024-12-31 14:55 | MHC.PT.EP ---
[facility] [place] Office [place] Office [place] Office [address] Nathanael Mckeon [address] [phone] F: [phone] F: [phone] F: [phone] F: [phone] Physical Therapy Plan of Care Date of Evaluation: 12/31/24 Date of Surgery: 11/26/24 Diagnosis: R YARI 11/26/24 (RL) Assessment: pt is a 74 y/o female presenting to physical therapy w/ referring diagnosis of R YARI 11/26/24. Impairments include pain, decreased range of motion, decreased strength, impaired functional mobility, impaired postural awareness, and altered ambulation mechanics. pt is a good candidate for skilled PT due to age, potential remediation of impairments, typical disease/condition progression and prognosis, comorbidities, and motivation. pt would benefit from skilled PT intervention to provide a tailored strengthening and stretching exercise program, functional training, gait training, postural re-training, neuromuscular re-education, modalities as needed for pain, equipment safety demonstration. Frequency and Duration: The patient will be seen 2x/wk for 4 wks Short Term Goals: pt will be I w/ HEP to promote self-management of condition. pt will improve R hip ABD and ER strength by 1 MMT grade to promote neutral pelvis/knees w/ ambulation on even ground. Member Services Coordinator Goals: pt will report a statistically significant improvement in self-reported outcome measure, Andria, to promote return to PLOF. pt will ascend/descend 14 stairs using railing w/ reciprocal pattern to promote ease in accessing spaces in her home. Treatment Plan: Modalities to reduce pain, spasms and effusion. Manual therapy to restore motion and function. Therapeutic exercise to improve strength and flexibility. Neuromuscular re-education for posture and balance. Therapeutic activities to return to functional activities of daily living. Electronically signed by: Aubrie Eddy PT, DPT Please sign and return to therapist. Thank you for your referral.
--- NOTE | 2025-02-17 13:24 | MHC.PT.DC ---
[facility] [place] Office [place] Office [place] Office [address] Nathanael Mckeon 140 [facility] [phone] F: [phone] F: [phone] F: [phone] F: [phone] Physical Therapy Discharge Report Diagnosis: R YARI 11/26/24 (RL) Date of Surgery: 11/26/24 Date of Evaluation: 12/31/24 Date of Discharge: 02/17/25 Treatments to Date: 2 Cancellations to Date: 5 No Shows to Date: 0 Discharge Status: Patient Elected to Stop Recommend MD Follow-up Visit Non-compliance Discharge Summary: The patient cancelled nearly all of her appointments and discharged herself with stated reason of feeling better. She only attended her evaluation and one follow-up appointments. Electronically signed by: Aubrie Eddy PT, DPT Please sign and return to therapist. Thank you for your referral.
== END 2025-02-17 13:24 | disposition home or self-care (01) ==
LOC: HO.PT 10:53
PROVIDERS: PCP Internal Medicine; Visit Provider Physician Assistant
DX: Z47.1 Aftercare following joint replacement surgery (principal); Z96.641 Presence of right artificial hip joint
CPT/HCPCS: 97110; 97162

== ENCOUNTER 2025-04-14 11:32 | Outpatient (REF) | payer MEDICARE, OTHER, SELFPAY ==
--- NOTE | ~2025-04-14 | XR_ITS ---
EXAMINATION: XR HIP 2 OR MORE VIEWS RIGHT HISTORY: M25.551 - Pain in right hip COMPARISON: Comparison is made with the prior examination dated 11/21/2024. FINDINGS: A single AP view of the pelvis and 2 views of the right hip are submitted. The patient is status post right total hip arthroplasty. The orthopedic elements are in anatomic alignment. There is no radiographic evidence of loosening. There is no fracture or dislocation. There are vascular calcifications. XR/XR hip RT min 2V IMPRESSION: Status post right total hip arthroplasty. Electronically signed by: Aram Austin MD 04/14/2025 02:06 PM ANTONI PEDRO
--- OUTSIDE RECORDS SUMMARY | 2025-04-15 15:35 | XMS_ITS | Encounter Summary ---
Author Organization [facility] Address [address] [place] [address] Phone Care Team Providers Care Blueprinting Machine Operator Name Role Phone Thomas Tracey MD Primary Care Provider [phone] Encounter Details Date Type Department Care Team (Late st Contact Info) Description 03/29/2017 Ancillary Orders Virtual Department [address] [place] [address] Thomas Tracey MD [address] [place] [phone] Breast screening Social History Tobacco Use Types [...] and compared with multiple prior studies, most [id number]/26/2016, with utilization of computer-aided detection. The breast [...] unspecified documented in this encounter Care Teams Blueprinting Machine Operator Relationship Specialty Start Date End Date Thomas Tracey MD [address] [place] [address] Drive [address] [place] [address] PCP - General Internal Medicine 03/29/17 documented as of this encounter Additional Source Comments The information contained in this document represents components of the legal health record. It is not the complete legal health record.[facility]
--- OUTSIDE RECORDS SUMMARY | 2025-04-15 15:35 | XMS_ITS | Encounter Summary ---
Author Organization [facility] Address [address] [place] [address] Phone Care Team Providers Care Real Estate Officer Name Role Phone Thomas Tracey MD Primary Care Provider [phone] Encounter Details Date Type Department Care Team (Late st Contact Info) Description 05/22/2019 Ancillary Orders Virtual Department [address] [place] [address] Thomas Tracey MD [address] [place] [phone] Breast screening Social History Tobacco Use Types [...] and compared with multiple prior studies, most [id number]/11/2018, with utilization of computer-aided detection. The breast [...] unspecified documented in this encounter Care Teams Real Estate Officer Relationship Specialty Start Date End Date Thomas Tracey MD [address] [place] [address] Drive [address] [place] [address] PCP - General Internal Medicine 03/29/17 documented as of this encounter Additional Source Comments The information contained in this document represents components of the legal health record. It is not the complete legal health record.[facility]
--- OUTSIDE RECORDS SUMMARY | 2025-04-15 15:35 | XMS_ITS | Patient Health Record ---
Author Organization [facility] Address [address] [place] [address] Care Team Providers Care Regional Wildlife Agent Name Role Phone Thomas Tracey MD Primary Care Provider Aram Almendarez [phone] Allergies No Known Allergies Reason For Referral [...] Risk Notes Problem Diverticular disease of colon (192550122) Diverticulosis of large intestine without perforation or abscess without bleeding (K57.30) Active confirmed Problem Abnormal feces (649788033) Positive colorectal cancer screening using Cologuard test (R19.5) Active confirmed Plan Of Treatment Future Test Test Name Order Date COLONOSCOPY 12/06/2022 Insurance Providers Payer Name Payer Address Payer Phone Subscriber Number Group Number Insured Name Patient Relationship to Insured Coverage Start Date Coverage End Date MEDICARE OF [place] [address] [place] [address] [phone] [id number] LUCRETIA SPAIN Self - patient is the insured [facility] [address] [place] [address] [id number] LUCRETIA SPAIN Self - patient is the insured Medical (General) History Medical History History ICD Code Hypertension Denies AK,DM,CVA,Lung disease,renal dise ase Surgical History Surgery Date(Month/Year)
--- OUTSIDE RECORDS SUMMARY | 2025-04-15 15:36 | XMS_ITS | Encounter Summary ---
Author Organization [facility] Address [address] [place] [address] Phone Care Team Providers Care Still Operator Name Role Phone Thomas Tracey MD Primary Care Provider [phone] Encounter Details Date Type Department Care Team (Latest Contact Info) Description 05/29/2019 Transcribe Orders [address] [place] [address] Thomas Tracey MD [address] [place] [address] Annual physical exam (Primary Dx); [...] EST) THYROXINE 6.5 4.6 - 12.0 ug/dL [facility] Blood 05/29/2019 11:5 7 AM EST 05/29/2019 12:02 PM EST Thomas Tracey MD LAB BLOOD ORDERABLES Final Re sult Performing Organization Address [facility]/ZIP Co de Phone Number [address] [address] * Folate (05/29/2019 11:57 AM EST) [facility] FOLIC ACID 8.1 4.2 - 19.9 ng/mL [facility] Blood 05/29/2019 11:5 7 AM EST 05/29/2019 12:02 PM EST Thomas Tracey MD LAB BLOOD BKR ORDERABLES Lety l Result Performing Organization Address [facility]/ZIP Co de Phone Number [address] [address] * (ABNORMAL) Vitamin B12 (05/29/2019 11:57 AM EST) [facility] VITAMIN B12 185(L) 232 - 1,245 pg/mL [facility] Blood 05/29/2019 11:5 7 AM EST 05/29/2019 12:02 PM EST Thomas Tracey MD LAB BLOOD BKR ORDERABLES Lety l Result Performing Organization Address [facility] Co de Phone Number [address] [address] * (ABNORMAL) Comprehensive metabolic panel (05/29/2019 11:57 AM EST) Pathologist [facility] SODIUM 140 133 - 146 mmol/L [facility] POTASSIUM 4.0 3.3 - 5.1 mmol/L [facility] CHLORIDE 102 96 - 108 mmol/L [facility] CO2 26 21 - 35 mmol/L [facility] BUN 19 6 - 19 mg/dL [facility] CREATININE 0.70 0.5 - 1.5 mg/dL [facility] GLUCOSE 100(H) 70 - 99 mg/dL [facility] ALBUMIN 4.4 3.9 - 4.8 g/dL [facility] TOTAL PROTEIN 7.2 6.5 - 8.0 g/dL [facility] CALCIUM 9.6 8.4 - 10.3 mg/dL [facility] ALKALINE PHOSPHATASE 66 39 - 117 U/L [facility] TOTAL BILIRUBIN 0.4 0.0 - 1.2 mg/dL [facility] AST 17 0 - 37 U/L [facility] ALT 11 0 - 40 U/L [facility] GLOBULIN 2.8 1 - 4.8 g/dL [facility] EGFR 88 >59 mL/min/1.7 3m2 [facility] Comment:If patient is black, multiply result by 1.159. Estimated glomerular filtration rate calculated using the CKD-EPI equation. ANION GAP 16 10 - 20 mmol/L [facility] Blood 05/29/2019 11:5 7 AM EST 05/29/2019 12:02 PM EST Thomas Tracey MD LAB BLOOD BKR ORDERABLES Lety l Result Performing Organization Address [facility]/ZIP Co de Phone Number [address] [address] * TSH (05/29/2019 11:57 AM EST) TSH 1.15 0.27 - 4.20 uIU/mL [facility] Blood 05/29/2019 11:5 7 AM EST 05/29/2019 12:02 PM EST Thomas Tracey MD LAB BLOOD BKR ORDERABLES Lety l Result Performing Organization Address [facility]/ZIP Co de Phone Number [address] [address] * (ABNORMAL) CBC and differential (05/29/2019 11:57 AM EST) WBC 6.74 4.00 - 11.00 K/uL [facility] Comment:Note Reference Range updates to all CBC and Differential results. RBC 4.56 3.72 - 5.30 M/uL [facility] HGB 13.2 11.4 - 15.9 g/dL [facility] Comment:Note updated Referen ce Ranges for all CBC and Differential results. HCT 39.7 34.2 - 46.8 % [facility] PLT 311 140 - 430 K/uL [facility] MCV 87.1 78.0 - 97.0 fL [facility] MCH 28.9 25.0 - 33.0 pg [facility] MCHC 33.2 32.0 - 36.0 g/dL [facility] RDW 14.2 11.0 - 16.0 % [facility] MPV 10.5 8.4 - 12.8 fl [facility] NRBC 0.00 0 /100 WBCs [facility] ABSOLUTE NRBC 0.00 0 K/uL [facility] DIFF METHOD Auto [facility] NEUTS 60.8 43.0 - 75.0 % [facility] LYMPHS 27.4 18.2 - 47.4 % [facility] MONOS 8.0 4.00 - 11.00 % [facility] EOS 1.9 0.0 - 8.0 % [facility] BASOS 1.6 0.0 - 2.0 % [facility] Granulocytes, immature (%) 0.3 0.0 - 0.9 % [facility] ABSOLUTE NEUTS 4.09 1.80 - 7.70 K/uL [facility] ABSOLUTE LYMPHS 1.85 1.00 - 3.10 K/uL [facility] ABSOLUTE MONOS 0.54 0.20 - 0.80 K/uL [facility] ABSOLUTE EOS 0.13 0.00 - 0.80 K/uL [facility] ABSOLUTE BASOS 0.11(H) 0.00 - 0.09 K/uL [facility] Granulocytes, immature 0.02 0.00 - 0.05 K/uL [facility] Blood 05/29/2019 11:5 7 AM EST 05/29/2019 12:02 PM EST us Thomas Tracey MD LAB BLOOD BKR ORDERABLES Lety del rio Result [facility] [address] [place] [address] * (ABNORMAL) 25-OH vitamin D (05/29/2019 11:57 AM EST) 25 OH VIT D (TOTAL) 23(L) 30 - 60 ng/mL [facility] Blood 05/29/2019 11:5 7 AM EST 05/29/2019 12:02 PM EST Thomas Tracey MD LAB BLOOD BKR ORDERABLES Lety l Result Performing Organization Address [facility] Co de Phone Number [address] [address] * (ABNORMAL) Lipid panel (05/29/2019 11:57 AM EST) HDL 74 mg/dL [facility] Comment: Interpretation <40 mg/dL: Low HDL cholesterol (major risk factor for CHD) Greater than or equal to 60 mg/dL: High HDL cholesterol ( negative risk factor for CHD) HDL - cholesterol is affected by a number of factors, e.g. smoking, excerise, hormones, sex and age. CHOLESTEROL 242(H) 0 - 240 mg/dL [facility] TRIGLYCERIDES 77 30 - 160 mg/dL [facility] LDL 153(H) 50 - 129 mg/dL [facility] Comment: LDL levels in terms of risk for coronary heart disease: <100 mg/dL: Optimal 100-129 mg/dL: Near or above optimal 130-159 mg/dL: Borderline high 160-189 mg/dL: High >190 mg/dL: Very High CARDIAC RISK RATIO 3.3 3.3 - 4.4 C [facility] Blood 05/29/2019 11:5 7 AM EST 05/29/2019 12:02 PM EST Thomas Tracey MD LAB BLOOD BKR ORDERABLES Lety l Result Performing Organization Address City/[facility]/ZIP Co de Phone Number [address] [address] documented in this encounter Visit Diagnoses Diagnosis Annual physical exam- Primary Routine general medical examination at a health care facility Colonoscopy refused Colon cancer screening Special screening for malignant neoplasms, colon Benign essential hypertension Essential hypertension, benign Pure hypercholesterolemia documented in this encounter Care Teams Still Operator Relationship Specialty Start Date End Date Thomas Tracey MD [address] [place] [address] PCP - General Internal Medicine 03/29/17 documented as of this encounter Additional Source Comments The information contained in this document represents components of the legal health record. It is not the complete legal health record.[facility]
--- OUTSIDE RECORDS SUMMARY | 2025-04-15 15:36 | XMS_ITS | Clinical Summary ---
Author Organization [facility] Address [address] [place] [address] Phone Care Team Providers Care Senior Technical Business Analyst Name Role Phone Thomas Tracey MD Primary Care Provider [phone] Social History Tobacco Use Types Packs/Day Years [...] MEDICARE PART A & B Care Teams Senior Technical Business Analyst Relationship Specialty Start Date End Date Thomas Tracey MD [address] [place] [address] PCP - General Internal Medicine 03/29/17 Additional Source Comments The information contained in this document represents components of the legal health record. It is not the complete legal health record.[facility]
== END 2025-04-14 11:33 | disposition home or self-care (01) ==
LOC: HO.HOSX 11:32
PROVIDERS: Visit Provider Physician Assistant
DX: Z47.1 Aftercare following joint replacement surgery (principal); Z96.641 Presence of right artificial hip joint
CPT/HCPCS: 73502

== ENCOUNTER 2025-04-14 13:43 | Outpatient (AMB) | payer MEDICARE, OTHER, SELFPAY ==
--- NOTE | 2025-04-14 14:16 | A.OFFVIS_ITS ---
Intake Visit Reasons: PO: R YARI w/NE 11/26/24 Intake Note: Josie is a 75 year old female who presents today for a follow up status post right YARI, performed by Dr. Childers on 11/26/24. Patient reports that she is doing well, she has no concerns today. Allergies No Known Allergies Allergy (Verified 04/14/25 14:19) Medication List - Last Reconciled 04/14/25 by Tereso Farah PA-C [3 in 1 commode DURATION : LIFETIME] atenolol 50 mg PO DAILY [Folding Front Wheeled walker Duration: 99 days] lisinopril 30 mg PO BEDTIME lorazepam 1-2 tabs 1-2 hours before procedure orally PRN; multivitamin (One-A-Day Essential tablet) 1 tab PO DAILY [Raised toilet seat duration - 99 days] HPI Comments Details: History of Present Illness The patient is a 75 year old female presenting for a routine postoperative follow-up visit for her right total hip arthroplasty. She is approximately four months post-surgery, which was performed in November. Prior to her surgery, she had severe degenerative changes of the right hip, characterized by a flattened femoral head. Postoperatively, the patient reports she is doing very well and feels she has a new life. She notes that some previous redness has resolved and her surgical scar is now fading. She has no current questions or concerns regarding her hip. Social History - Functional Status: The patient reports a significant improvement in her quality of life following her hip surgery. [facility] Medical History Osteoarthritis Anxiety Environmental and seasonal allergies Breast cancer screening by mammogram Colon cancer screening Positive colorectal cancer screening using Cologuard test Nasal fracture Vitamin B12 deficiency Vitamin D deficiency Hypercholesterolemia Hypertension Surgical History History of bilateral cataract extraction History of surgery on right wrist Hx of wisdom tooth extraction Hx of colonoscopy Family History Mother Dementia Father Suicide Brother No problems noted. Sister No problems noted. Son No problems noted. Social History Household Members: Spouse Housing: House Are you a primary career services assistant to a significant other at home: No Do you presently have visiting nurse or other home services: No 75 years or older and lives alone: No Alcohol intake: current Alcohol intake frequency: a few times a month Alcohol type: wine Patient Tobacco Use Status: Former Tobacco user Tobacco use type: Cigarette Years Smoked: stopped 1999 e-Cigarette/Vaping Use: Never Used Second Hand Smoke Exposure: Yes service: No Current occupational status: retired Cognitive needs: No Hearing needs: No Vision needs: No Review of Systems Narrative Review of Systems - Musculoskeletal: Denies any issues with her hip. - Integumentary: Reports her surgical scar is fading. - All other systems reviewed and are negative per patient reporting no questions or concerns. Physical Exam Exam Exam: Physical Exam - Integumentary: The surgical scar on the right hip is well-healed, with previously noted redness now resolved. Assessment & Plan Assessment & Plan (1) S/P total right hip arthroplasty: Code(s): Z96.641 - Presence of right artificial hip joint Category: Surgical Plan Plan 1. Status Post Right Total Hip Arthroplasty The patient is four months postoperative from a right total hip arthroplasty and is doing exceptionally well, reporting a significant improvement in her quality of life. Review of her recent x-rays shows the prosthesis has good fixation with no evidence of loosening. The plan is to have her follow up at the one-year alex. She was counseled on the importance of taking prophylactic antibiotics for any future procedures, such as dental work, and was advised to be careful to p revent falls, particularly with the current icy weather conditions. Consent Patient was informed and verbally consented to the use of an ambient scribe for clinic note documentation during this visit. Orders: Orders XR hip RT min 2V Today M25.551 - Pain in right hip Coding Level of Care Code Est Pt Level 3 (84378) Add On Problem Visit Only Diagnoses S/P total right hip arthroplasty Z96.641
--- OUTSIDE RECORDS SUMMARY | 2025-04-14 15:58 | XMS_ITS | Patient Health Record ---
Author Organization [facility] Address [address] [place] [address] Care Team Providers Care Boat Detailer Name Role Phone Thomas Tracey MD Primary Care Provider Aram Almendarez [phone] Allergies No Known Allergies Reason For Referral No Information Medications Medication SIG (Take, Route, Fr equency, Duration) Notes Start Date End Date Status Lisinopril 10 MG Tablet Oral; Duration: 90 Active Multivitamin - Tablet 1 tablet Orally On ce a day; Duration: 30 day(s) Active Atenolol 50 MG Tablet Oral; Duration: 90 Active Social History Tobacco Use: Social History Observation Description Date Details (start date - stop date) Former Smoker NA - NA Social History Drugs/Alcohol: Social Info Question Answer Notes Alcohol Screen Did you have a drink containing alcohol in the past year? Yes How often did you have a drink containing alcohol in the past year? 4 or more times a week (4 points) How many drinks did you have on a typical day when you were drinking in the past year? 1 or 2 drinks (0 point) How often did you have 6 or more drinks on one occasion in the past year? Never (0 point) Points 4 Interpretation Positive Tobacco Use: Social Info Question Answer Notes Tobacco Use/Smoking Patient is a former smoker How long has it been since you last smoked? > 10 years Additional Details Category Social Info Options Details Miscellaneous: Marital status: Occupation: Retired social w orker Section Notes: Nonsmoker; occ. alcohol Problems Problem Type SNOMED Code ICD Code Onset Dates Problem Status W/U Status Risk Notes Problem Diverticular disease of colon (252524528) Diverticulosis of large intestine without perforation or abscess without bleeding (K57.30) Active confirmed Problem Abnormal feces (235927260) Positive colorectal cancer screening using Cologuard test (R19.5) Active confirmed Plan Of Treatment Future Test Test Name Order Date COLONOSCOPY 12/06/2022 Insurance Providers Payer Name Payer Address Payer Phone Subscriber Number Group Number Insured Name Patient Relationship to Insured Coverage Start Date Coverage End Date MEDICARE OF [place] [address] [place] [address] [phone] [id number] LUCRETIA SPAIN Self - patient is the insured [facility] [address] [place] [address] [id number] LUCRETIA SPAIN Self - patient is the insured Medical (General) History Medical History History ICD Code Hypertension Denies NC,DM,CVA,Lung disease,renal dise ase Surgical History Surgery Date(Month/Year)
--- OUTSIDE RECORDS SUMMARY | 2025-04-14 15:58 | XMS_ITS | Encounter Summary ---
Author Organization [facility] Address [address] [place] [address] Phone Care Team Providers Care Crane Operator Name Role Phone Thomas Tracey MD Primary Care Provider [phone] Encounter Details Date Type Department Care Team (Late st Contact Info) Description 05/22/2019 Ancillary Orders Virtual Department [address] [place] [address] Thomas Tracey MD [address] [place] [phone] Breast screening Social History Tobacco Use Types [...] and compared with multiple prior studies, most [id number]/11/2018, with utilization of computer-aided detection. The breast [...] unspecified documented in this encounter Care Teams Crane Operator Relationship Specialty Start Date End Date Thomas Tracey MD [address] [place] [address] Drive [address] [place] [id number] PCP - General Internal Medicine 03/29/17 documented as of this encounter Additional Source Comments The information contained in this document represents components of the legal health record. It is not the complete legal health record.[facility]
--- OUTSIDE RECORDS SUMMARY | 2025-04-14 15:58 | XMS_ITS | Clinical Summary ---
Author Organization [facility] Address [address] [place] [address] Phone Care Team Providers Care General Teller Name Role Phone Thomas Tracey MD Primary Care Provider [phone] Social History Tobacco Use Types Packs/Day Years [...] MEDICARE PART A & B Care Teams General Teller Relationship Specialty Start Date End Date Thomas Tracey MD [address] [place] [address] PCP - General Internal Medicine 03/29/17 Additional Source Comments The information contained in this document represents components of the legal health record. It is not the complete legal health record.[facility]
--- OUTSIDE RECORDS SUMMARY | 2025-04-14 15:58 | XMS_ITS | Encounter Summary ---
Author Organization [facility] Address [address] [place] [address] Phone Care Team Providers Care Set Up Mechanic Coating Machines Name Role Phone Thomas Tracey MD Primary Care Provider [phone] Encounter Details Date Type Department Care Team (Late st Contact Info) Description 03/29/2017 Ancillary Orders Virtual Department [address] [place] [address] Thomas Tracey MD [address] [place] [phone] Breast screening Social History Tobacco Use Types [...] and compared with multiple prior studies, most [id number]/26/2016, with utilization of computer-aided detection. The breast [...] unspecified documented in this encounter Care Teams Set Up Mechanic Coating Machines Relationship Specialty Start Date End Date Thomas Tracey MD [address] [place] [address] Drive [address] [place] [phone] PCP - General Internal Medicine 03/29/17 documented as of this encounter Additional Source Comments The information contained in this document represents components of the legal health record. It is not the complete legal health record.[facility]
--- OUTSIDE RECORDS SUMMARY | 2025-04-14 15:59 | XMS_ITS | Encounter Summary ---
Author Organization [facility] Address [address] [place] [address] Phone Care Team Providers Care Register Of Deeds Name Role Phone Thomas Tracey MD Primary Care Provider [phone] Encounter Details Date Type Department Care Team (Latest Contact Info) Description 05/29/2019 Transcribe Orders [address] [place] [address] Thomas Tracey MD [address] [place] [address] Annual physical exam (Primary Dx); [...] EST) THYROXINE 6.5 4.6 - 12.0 ug/dL [facility] Blood 05/29/2019 11:5 7 AM EST 05/29/2019 12:02 PM EST Thomas Tracey MD LAB BLOOD ORDERABLES Final Re sult Performing Organization Address [facility]/ZIP Co de Phone Number [address] [address] * Folate (05/29/2019 11:57 AM EST) [facility] FOLIC ACID 8.1 4.2 - 19.9 ng/mL [facility] Blood 05/29/2019 11:5 7 AM EST 05/29/2019 12:02 PM EST Thomas Tracey MD LAB BLOOD BKR ORDERABLES Lety l Result Performing Organization Address [facility]/ZIP Co de Phone Number [address] [address] * (ABNORMAL) Vitamin B12 (05/29/2019 11:57 AM EST) [facility] VITAMIN B12 185(L) 232 - 1,245 pg/mL [facility] Blood 05/29/2019 11:5 7 AM EST 05/29/2019 12:02 PM EST Thomas Tracey MD LAB BLOOD BKR ORDERABLES Lety l Result Performing Organization Address [facility] Co de Phone Number [address] [address] * (ABNORMAL) Comprehensive metabolic panel (05/29/2019 11:57 AM EST) Pathologist [facility] SODIUM 140 133 - 146 mmol/L [facility] POTASSIUM 4.0 3.3 - 5.1 mmol/L [facility] CHLORIDE 102 96 - 108 mmol/L [facility] CO2 26 21 - 35 mmol/L [facility] BUN 19 6 - 19 mg/dL [facility] CREATININE 0.70 0.5 - 1.5 mg/dL [facility] GLUCOSE 100(H) 70 - 99 mg/dL [facility] ALBUMIN 4.4 3.9 - 4.8 g/dL [facility] TOTAL PROTEIN 7.2 6.5 - 8.0 g/dL [facility] CALCIUM 9.6 8.4 - 10.3 mg/dL [facility] ALKALINE PHOSPHATASE 66 39 - 117 U/L [facility] TOTAL BILIRUBIN 0.4 0.0 - 1.2 mg/dL [facility] AST 17 0 - 37 U/L [facility] ALT 11 0 - 40 U/L [facility] GLOBULIN 2.8 1 - 4.8 g/dL [facility] EGFR 88 >59 mL/min/1.7 3m2 [facility] Comment:If patient is black, multiply result by 1.159. Estimated glomerular filtration rate calculated using the CKD-EPI equation. ANION GAP 16 10 - 20 mmol/L [facility] Blood 05/29/2019 11:5 7 AM EST 05/29/2019 12:02 PM EST Thomas Tracey MD LAB BLOOD BKR ORDERABLES Lety l Result Performing Organization Address [facility]/ZIP Co de Phone Number [address] [address] * TSH (05/29/2019 11:57 AM EST) TSH 1.15 0.27 - 4.20 uIU/mL [facility] Blood 05/29/2019 11:5 7 AM EST 05/29/2019 12:02 PM EST Thomas Tracey MD LAB BLOOD BKR ORDERABLES Lety l Result Performing Organization Address [facility]/ZIP Co de Phone Number [address] [address] * (ABNORMAL) CBC and differential (05/29/2019 11:57 AM EST) WBC 6.74 4.00 - 11.00 K/uL [facility] Comment:Note Reference Range updates to all CBC and Differential results. RBC 4.56 3.72 - 5.30 M/uL [facility] HGB 13.2 11.4 - 15.9 g/dL [facility] Comment:Note updated Referen ce Ranges for all CBC and Differential results. HCT 39.7 34.2 - 46.8 % [facility] PLT 311 140 - 430 K/uL [facility] MCV 87.1 78.0 - 97.0 fL [facility] MCH 28.9 25.0 - 33.0 pg [facility] MCHC 33.2 32.0 - 36.0 g/dL [facility] RDW 14.2 11.0 - 16.0 % [facility] MPV 10.5 8.4 - 12.8 fl [facility] NRBC 0.00 0 /100 WBCs [facility] ABSOLUTE NRBC 0.00 0 K/uL [facility] DIFF METHOD Auto [facility] NEUTS 60.8 43.0 - 75.0 % [facility] LYMPHS 27.4 18.2 - 47.4 % [facility] MONOS 8.0 4.00 - 11.00 % [facility] EOS 1.9 0.0 - 8.0 % [facility] BASOS 1.6 0.0 - 2.0 % [facility] Granulocytes, immature (%) 0.3 0.0 - 0.9 % [facility] ABSOLUTE NEUTS 4.09 1.80 - 7.70 K/uL [facility] ABSOLUTE LYMPHS 1.85 1.00 - 3.10 K/uL [facility] ABSOLUTE MONOS 0.54 0.20 - 0.80 K/uL [facility] ABSOLUTE EOS 0.13 0.00 - 0.80 K/uL [facility] ABSOLUTE BASOS 0.11(H) 0.00 - 0.09 K/uL [facility] Granulocytes, immature 0.02 0.00 - 0.05 K/uL [facility] Blood 05/29/2019 11:5 7 AM EST 05/29/2019 12:02 PM EST us Thomas Tracey MD LAB BLOOD BKR ORDERABLES Lety del rio Result [facility] [address] [place] [address] * (ABNORMAL) 25-OH vitamin D (05/29/2019 11:57 AM EST) 25 OH VIT D (TOTAL) 23(L) 30 - 60 ng/mL [facility] Blood 05/29/2019 11:5 7 AM EST 05/29/2019 12:02 PM EST Thomas Tracey MD LAB BLOOD BKR ORDERABLES Lety l Result Performing Organization Address [facility] Co de Phone Number [address] [address] * (ABNORMAL) Lipid panel (05/29/2019 11:57 AM EST) HDL 74 mg/dL [facility] Comment: Interpretation <40 mg/dL: Low HDL cholesterol (major risk factor for CHD) Greater than or equal to 60 mg/dL: High HDL cholesterol ( negative risk factor for CHD) HDL - cholesterol is affected by a number of factors, e.g. smoking, excerise, hormones, sex and age. CHOLESTEROL 242(H) 0 - 240 mg/dL [facility] TRIGLYCERIDES 77 30 - 160 mg/dL [facility] LDL 153(H) 50 - 129 mg/dL [facility] Comment: LDL levels in terms of risk for coronary heart disease: <100 mg/dL: Optimal 100-129 mg/dL: Near or above optimal 130-159 mg/dL: Borderline high 160-189 mg/dL: High >190 mg/dL: Very High CARDIAC RISK RATIO 3.3 3.3 - 4.4 C [facility] Blood 05/29/2019 11:5 7 AM EST 05/29/2019 12:02 PM EST Thomas Tracey MD LAB BLOOD BKR ORDERABLES Lety l Result Performing Organization Address City/[facility]/ZIP Co de Phone Number [address] [address] documented in this encounter Visit Diagnoses Diagnosis Annual physical exam- Primary Routine general medical examination at a health care facility Colonoscopy refused Colon cancer screening Special screening for malignant neoplasms, colon Benign essential hypertension Essential hypertension, benign Pure hypercholesterolemia documented in this encounter Care Teams Register Of Deeds Relationship Specialty Start Date End Date Thomas Tracey MD [address] [place] [phone] PCP - General Internal Medicine 03/29/17 documented as of this encounter Additional Source Comments The information contained in this document represents components of the legal health record. It is not the complete legal health record.[facility]
== END 2025-04-14 14:30 | disposition home or self-care (01) ==
LOC: HO.HOS 13:44
PROVIDERS: PCP Internal Medicine; Visit Provider Physician Assistant
DX: Z47.89 Encounter for other orthopedic aftercare (principal); Z96.641 Presence of right artificial hip joint
CPT/HCPCS: 99213; G2211

== ENCOUNTER → 2025-04-14 13:47 | Outpatient (BNV) | payer MEDICARE, OTHER, SELFPAY | PROVIDERS: Visit Provider Radiology Diagnostic Radiology | DX: M25.551 Pain in right hip (principal); Z96.641 Presence of right artificial hip joint | CPT/HCPCS: 73502 ==